=== PATIENT | female | born 1955 | race Caucasian/White ===

== ENCOUNTER → 2024-05-05 | Outpatient (CLI) | payer MEDICARE ==
[2024-05-05 17:19] LABS: African American GFR (CKD) >90 (>60 ml/min/1.73 sqM); Blood Urea Nitrogen 17 mg/dL (7-17); Non-African American GFR(CKD) 83 (>60 ml/min/1.73 sqM)
--- NOTE | 2024-05-05 19:31 | CT ---
"EXAMINATION TYPE: CT abdomen pelvis w con CT DLP: 1091.7 mGycm, Automated exposure control for dose reduction was used. DATE OF EXAM: 05/05/2024 6:50 PM COMPARISON: None CLINICAL INDICATION: Female, 69 years old with history of R11.2 NAUSEA VOMITING; abdominal pain, naus ea and vomiting x1.5 months TECHNIQUE: Axial CT abdomen pelvis w con;Sagittal and coronal reformats were created on a separate w orkstation. Contrast used:100 ml mL of Isovue 370 with IV Contrast, (none if empty) Oral contrast used: with Oral Contrast (none if empty) FINDINGS: LOWER CHEST: Unremarkable ABDOMEN LIVER: Unremarkable GALLBLADDER AND BILE DUCTS: Distended PANCREAS: Unremarkable. SPLEEN: Unremarkable. ADRENAL GLANDS: Unremarkable. KIDNEYS AND URETERS: No evidence of hydronephrosis or renal calculus. The ureters are unremarkable. PELVIS BLADDER: Unremarkable REPRODUCTIVE: Unremarkable. ABDOMEN & PELVIS STOMACH AND BOWEL: No evidence of bowel obstruction. Eccentric wall thickening of the sigmoid colon s eries 3 image 50 with wall thickening up to 9 mm overall area of abnormal wall extends approximately 9.8 cm in length. No mesenteric lymph nodes definitively visualized at this time. Scattered colonic diverticula present. PERITONEUM/RETROPERITONEUM: No evidence of pneumoperitoneum or free fluid. VASCULATURE: No evidence of aortic aneurysm. MUSCULOSKELETAL: No acute osseous abnormalities LYMPH NODES: No gross evidence for lymphadenopathy. SOFT TISSUE/ABDOMINAL WALL: Unremarkable IMPRESSION: 1. Descending colon eccentric wall thickening extending up to 9.8 cm concerning for malignancy until proven otherwise. Colonoscopy recommended. 2. No mesenteric lymph nodes identified at this time. No liver masses definitively visualized. A Yellow level critical message alert has been initiated for Rachel Andujar DO via the [facility] [facility] 0 | Critical Results System on 05/05/2024 7:29 PM. This message alert has been sent to Rachel Andujar DO via the preferences provided by the clinician for the receipt of Radiology Critical Findings. [facility] ID [id number]. [facility], , 05/05/2024 7:29 PM"
== END | disposition home or self-care (01) ==
LOC: RADCTMAIN 16:33
PROVIDERS: ATTEND Family Medicine
DX: R11.2 Nausea with vomiting, unspecified
CPT/HCPCS: 36415; 74177; 82565; 84520

== ENCOUNTER 2024-05-19 13:32 | Day surgery (SDC) | payer MEDICARE ==
[2024-05-14 11:59] VITALS: BMI 36.1
[~2024-05-19 13:32] MED LIST: LIDOCAINE 1% (10MG/ML) FOR IV START INTRADERMA PRN
[2024-05-19 15:16] VITALS: TEMP 98.2
[2024-05-19] MEDS: IV FLUID CONTINUATION 1,000 ML IV ONE (15:18)
[2024-05-19] MEDS: LACTATED RINGERS 1,000 ML IV SCH (15:24)
[2024-05-19] MEDS ORDERED: PROPOFOL 10 MG/ML 20 ML VIAL IV ONE (16:08)
--- NOTE | 2024-05-19 16:10 | P.GSHP ---
History of Present Illness H&P Date: 05/19/24 Chief Complaint: Screening colonoscopy This is a 69-year-old female who presents today for screening colonoscopy. Patient denies any significant GI complaints. Past Medical History Past Medical History: Osteoarthritis (OA) Additional Past Medical History / Comment(s): Patient states since the end of February 2024 has not been able to smoke cigarettes or drink coffee, is only able to eat about half of what she used to eat, has abdominal pain, especially when trying to eat, bloating, constipation and greasy smells(for example from sausage cooking)give me nausea. Varicose veins?? History of Any Multi-Drug Resistant Organisms: None Reported Additional Past Surgical History / Comment(s): D&C X4. Past Anesthesia/Blood Transfusion Reactions: Previous Problems w/ Anesthesia Additional Past Anesthesia/Blood Transfusion Reaction / Comment(s): Patient states she had 4 D&C's in 2262-9269 and her heart stopped all 4 times and eneded up in the Cardiac Unit. States has not had any anesthesia since then. Smoking Status: Former smoker - Past Family History Mother Family Medical History: No Reported History Medications and Allergies Home Medications Medication Instructions Recorded Confirmed Type No Known Home Medications 05/14/24 05/19/24 History Allergies Allergy/AdvReac Type Severity Reaction Status Date / Time No Known Allergies Allergy Verified 05/19/24 15:02 Surgical - Exam Vital Signs Temp Pulse Resp BP Pulse Ox 98.2 F 103 H 16 213/145 94 L 05/19/24 15:07 05/19/24 15:07 05/19/24 15:07 05/19/24 15:07 05/19/24 15:07 - General well developed, well nourished, no distress - Eyes PERRL - ENT normal pinna - Neck no masses - Respiratory normal expansion - Cardiovascular Rhythm: regular - Abdomen Abdomen: soft, non tender Assessment and Plan Assessment: Will perform screening colonoscopy.
--- NOTE | 2024-05-19 16:28 | P.OP ---
Date of Procedure: 05/19/24 Preoperative Diagnosis: Screening colonoscopy Postoperative Diagnosis: Colon mass at 50 cm Procedure(s) Performed: Colonoscopy Anesthesia: MAC Surgeon: Mo Main Pathology: other (Colon mass) Condition: stable Disposition: PACU Description of Procedure: The patient was placed on the endoscopy table position. She received IV sedation. Digital rectal exam was performed which revealed no abnormalities. The flexible colonoscope was then placed patient anus passed throughout the colon. At the 50 cm christine there was a apple core type lesion. This was biopsied with a cold forcep. The area was then tattooed with the ink spot.. The lumen of the colon was quite narrow. The scope was then withdrawn. The remainder of the descending and sigmoid colon appeared normal. The rectum is normal. Scope withdrawn for the patient.
[2024-05-19 17:06] VITALS: BP 126/79; PULSE 97; RESP 20
== END 2024-05-19 17:10 | disposition home or self-care (01) ==
LOC: ORWHC2ENDO 13:32
PROVIDERS: ATTEND Surgery
CPT/HCPCS: 45380; 45381; 88305; 88341; 88342

== ENCOUNTER 2024-06-02 07:50 | Inpatient (IN) | payer MEDICARE ==
[~2024-06-02 07:50] MED LIST changes: +ACETAMINOPHEN TAB 500 MG TAB PO PRN; -LIDOCAINE 1% (10MG/ML) FOR IV START INTRADERMA PRN
[2024-06-02] MEDS: LACTATED RINGERS 1,000 ML IV SCH (09:11)
[2024-06-02] MEDS: DEXAMETHASONE SOD PHOSPHATE 4 MG/ML 1 ML VIAL IV ONE (09:12)
[2024-06-02] MEDS: ONDANSETRON 4 MG/2 ML VIAL IVP ONE (09:12)
[2024-06-02] MEDS: HEPARIN SODIUM,PORCINE 5,000 UNIT/ML 1 ML VIAL SQ PRN (09:16)
[2024-06-02 09:17] LABS: Basophils # (A) 0.1 k/uL (0-0.2); Basophils % (A) 0 %; Eosinophils # (A) 0.2 k/uL (0-0.7); Eosinophils % (A) 1 %; HCT 37.6 % (34.0-46.0); Hypochromasia Slight; Lymphocytes % (A) 16 %; MCH 27.5 pg (25.0-35.0); MCHC 31.9 g/dL (31.0-37.0); MCV 86.4 fL (80.0-100.0); Mean Platelet Volume 7.2; Monocytes # (A) 0.6 k/uL (0-1.0); Monocytes % (A) 3 %; Neutrophils # (A) 14.6 k/uL (1.3-7.7); Neutrophils % (A) 78 %; Platelet Count 477 k/uL (150-450); RBC 4.35 m/uL (3.80-5.40); RDW 15.3 % (11.5-15.5); WBC 18.7 k/uL (3.8-10.6)
[2024-06-02] MEDS: IV FLUID CONTINUATION 1,000 ML IV ONE ×3 (09:17→13:35)
[2024-06-02 09:36] LABS: ALT 28 U/L (4-34); AST 42 U/L (14-36); African American GFR (CKD) >90 (>60 ml/min/1.73 sqM); Albumin 3.6 g/dL (3.5-5.0); Alkaline Phosphatase 122 U/L (38-126); Anion Gap 10 mmol/L; Blood Urea Nitrogen 15 mg/dL (7-17); Carbon Dioxide 28 mmol/L (22-30); Chloride 103 mmol/L (98-107); Glucose 103 mg/dL (74-99); Non-African American GFR(CKD) >90 (>60 ml/min/1.73 sqM); Potassium 3.8 mmol/L (3.5-5.1); Sodium 141 mmol/L (137-145); Total Bilirubin 0.7 mg/dL (0.2-1.3); Total Protein 6.7 g/dL (6.3-8.2)
[2024-06-02 09:44] LABS: INR 0.9 (<1.2); Partial Thromboplastin Time 28.7 sec (22.0-30.0); Prothrombin Time 10.5 sec (10.0-12.5)
[2024-06-02] MEDS ORDERED: PHENYLEPHRINE 10 MG/ML VIAL ONE (10:14)
[2024-06-02] MEDS ORDERED: LIDOCAINE 1% INJ 10MG/ML (20 ML MDV) ONE (10:14)
[2024-06-02] MEDS ORDERED: HYDROmorphone (PF) 1 MG/ML ONE (10:14)
[2024-06-02] MEDS ORDERED: ESMOLOL 100 MG/10 ML VIAL ONE (10:14)
[2024-06-02] MEDS ORDERED: fentaNYL (PF) 50 MCG/ML 2 ML AMP ONE (10:14)
[2024-06-02] MEDS ORDERED: KETAMINE HCL IN 0.9 % NACL 50 MG/5 ML SYRINGE ONE (10:14)
[2024-06-02] MEDS ORDERED: KETOROLAC 15 MG/ML 1 ML VIAL ONE (10:14)
[2024-06-02] MEDS ORDERED: SUCCINYLCHOLINE CHLORIDE 200 MG/10 ML VIAL IV ONE (10:14)
[2024-06-02] MEDS ORDERED: GLYCOPYRROLATE 0.2 MG/ML 2 ML VIAL ONE (10:14)
[2024-06-02] MEDS ORDERED: PROPOFOL 10 MG/ML 20 ML VIAL IV ONE (10:14)
[2024-06-02] MEDS ORDERED: ALBUMIN HUMAN 5% (12.5gm) 250 ML BOTTLE IVPB ONE (10:14)
[2024-06-02] MEDS ORDERED: NEOSTIGMINE 1 MG/ML 10 ML VIAL ONE (10:14)
[2024-06-02] MEDS ORDERED: MIDAZOLAM 2 MG/2 ML VIAL ONE (10:14)
[2024-06-02] MEDS ORDERED: ROCURONIUM 10 MG/ML (5 ML VIAL) IV ONE (10:14)
[2024-06-02] MEDS: metroNIDAZOLE-NS PMX 500 MG in SALINE 1 100ML.BAG IVPB PRN (10:35)
[2024-06-02] MEDS: HYDROmorphone 0.5 MG/0.5 ML SYRINGE IVP PRN (12:44)
[2024-06-02] MEDS: DEXTROSE 5%-0.45% NACL 1,000 ML IV SCH (15:40)
[2024-06-02 17:49] LABS: African American GFR (CKD) >90 (>60 ml/min/1.73 sqM); Anion Gap 4 mmol/L; Blood Urea Nitrogen 15 mg/dL (7-17); Calcium 8.3 mg/dL (8.4-10.2); Carbon Dioxide 27 mmol/L (22-30); Chloride 105 mmol/L (98-107); Glucose 143 mg/dL (74-99); Non-African American GFR(CKD) >90 (>60 ml/min/1.73 sqM); Potassium 4.3 mmol/L (3.5-5.1); Sodium 136 mmol/L (137-145)
[2024-06-02 17:57] LABS: Basophils % (A) 0 %; Eosinophils % (A) 0 %; Hypochromasia Slight; Lymphocytes # (A) 0.9 k/uL (1.0-4.8); Lymphocytes % (A) 4 %; MCH 27.4 pg (25.0-35.0); MCV 88.4 fL (80.0-100.0); Monocytes # (A) 0.9 k/uL (0-1.0); Monocytes % (A) 4 %; Neutrophils # (A) 21.3 k/uL (1.3-7.7); Neutrophils % (A) 91 %; Platelet Count 333 k/uL (150-450); RBC 3.05 m/uL (3.80-5.40); RDW 15.5 % (11.5-15.5); WBC 23.3 k/uL (3.8-10.6)
[2024-06-02 17:59] LABS: HGB 8.4 gm/dL (11.4-16.0)
[2024-06-02] MEDS: HYDROmorphone 2 MG/ML 1 ML SYRINGE IVP PRN (19:45)
[2024-06-02] MEDS: FAMOTIDINE 20 MG/2 ML VIAL IV SCH (19:45)
[2024-06-03] MEDS: ALVIMOPAN 12 MG CAPSULE PO SCH (07:57)
[2024-06-03 08:36] LABS: Basophils % (A) 0 %; Eosinophils % (A) 0 %; HCT 24.7 % (34.0-46.0); HGB 7.6 gm/dL (11.4-16.0); Hypochromasia Slight; Lymphocytes # (A) 2.5 k/uL (1.0-4.8); Lymphocytes % (A) 10 %; MCH 27.3 pg (25.0-35.0); MCHC 30.8 g/dL (31.0-37.0); MCV 88.6 fL (80.0-100.0); Mean Platelet Volume 8.2; Monocytes # (A) 0.7 k/uL (0-1.0); Monocytes % (A) 3 %; Neutrophils % (A) 86 %; Platelet Count 368 k/uL (150-450); RBC 2.79 m/uL (3.80-5.40); RDW 15.8 % (11.5-15.5); WBC 25.5 k/uL (3.8-10.6)
[2024-06-03 09:03] LABS: African American GFR (CKD) >90 (>60 ml/min/1.73 sqM); Anion Gap 4 mmol/L; Blood Urea Nitrogen 15 mg/dL (7-17); Calcium 8.3 mg/dL (8.4-10.2); Carbon Dioxide 28 mmol/L (22-30); Chloride 101 mmol/L (98-107); Glucose 132 mg/dL (74-99); Non-African American GFR(CKD) >90 (>60 ml/min/1.73 sqM); Sodium 133 mmol/L (137-145)
[2024-06-03] MEDS: ACETAMINOPHEN IV (For NPO) 1,000 MG in EMPTY BAG 1 BAG IVPB SCH (10:56)
--- NOTE | 2024-06-03 13:18 | P.PN ---
Subjective Progress Note Date: 06/03/24 SURGICAL PROGRESS NOTE CHIEF COMPLAINT: Colon mass HISTORY OF PRESENT ILLNESS: Patient is postop day #1 status post left colectomy and splenectomy. Patient did go for prolonged period of time without pain medication. She was trying not to take the IV pain medication. She did have some nausea earlier. She does report abdominal pain and did take finally a dose of the IV pain medication. She denies any vomiting. Afebrile. WBC did go up from 23-25 Hgb 8.4 down to 7.6 platelets 368. Heart rate 105 BP 113/72 PHYSICAL EXAM: VITAL SIGNS: Reviewed. GENERAL: Well-developed in no acute distress. HEENT: No sclera icterus. Extraocular movements grossly intact. Moist buccal mucosa. Head is atraumatic, normocephalic. ABDOMEN: Soft. Tenderness at incision site. Surgical incisional dressing i ntact and clean and dry. Abdominal binder in place. NEUROLOGIC: Alert and oriented. Cranial nerves II through XII grossly intact. ASSESSMENT: 1. Left colon mass invading into the retroperitoneum status post left colectomy PLAN: -Repeat CBC in a.m. -IV Tylenol added for pain control. Encouraged and educated patient to take the IV Dilaudid to help with pain management -Encourage patient to use incentive spirometer -Continue IV fluids -Consult PT OT -GI prophylaxis Pepcid and DVT prophylaxis SCDs Physician Staff Development Coordinator note has been reviewed by physician. Signing provider agrees with the documented findings, assessment, and plan of care. Objective - Vital Signs Vital signs: Vital Signs Temp 98.2 F 06/03/24 12:23 Pulse 105 H 06/03/24 12:23 Resp 16 06/03/24 12:23 BP 113/70 06/03/24 12:23 Pulse Ox 90 L 06/03/24 12:23 FiO2 Intake & Output 06/02/24 06/03/24 06/03/24 18:59 06:59 18:59 Intake Total 950 1860 520 Output Total 415 450 Balance 535 1410 520 Weight 83.8 kg Intake: IV 950 Intake, IV Titration 1500 Amount Dextrose 5%-0.45% NaCl 1, 1500 000 ml @ 125 mls/hr IV . Q8H [facility] Rx#:[id number] Oral 360 520 Output: Urine 165 450 Estimated Blood Loss 250 Other: Voiding Method Indwelling Catheter Indwelling Catheter - Labs CBC & Chem 7: 06/03/24 08:04 06/03/24 08:04 Labs: Abnormal Lab Results - Last 24 Hours (Table) 06/02/24 06/02/24 06/03/24 Range/Units 17:19 17:19 08:04 WBC 23.3 H 25.5 H (3.8-10.6) k/uL RBC 3.05 L 2.79 L (3.80-5.40) m/uL Hgb 8.4 L D 7.6 L (11.4-16.0) gm/dL Hct 27.0 L 24.7 L (34.0-46.0) % MCHC 30.8 L (31.0-37.0) g/dL RDW 15.8 H (11.5-15.5) % Neutrophils # 21.3 H 22.0 H (1.3-7.7) k/uL Lymphocytes # 0.9 L (1.0-4.8) k/uL Sodium 136 L (137-145) mmol/L Glucose 143 H (74-99) mg/dL Calcium 8.3 L (8.4-10.2) mg/dL 06/03/24 Range/Units 08:04 WBC (3.8-10.6) k/uL RBC (3.80-5.40) m/uL Hgb (11.4-16.0) gm/dL Hct (34.0-46.0) % MCHC (31.0-37.0) g/dL RDW (11.5-15.5) % Neutrophils # (1.3-7.7) k/uL Lymphocytes # (1.0-4.8) k/uL Sodium 133 L (137-145) mmol/L Glucose 132 H (74-99) mg/dL Calcium 8.3 L (8.4-10.2) mg/dL
[2024-06-03 20:24] LABS: Appearance,Urine Cloudy (Clear); Bacteria,Urine Rare /hpf; Bilirubin,Urine Negative (Negative); Blood,Urine Trace (Negative); Color,Urine Light Yellow; Glucose,Urine (UA) Negative (Negative); Ketones,Urine Negative (Negative); Leukocyte Esterase,Urine Negative (Negative); Mucus,Urine Rare /hpf; Nitrite,Urine Negative (Negative); PH, Urine 5.5 (5.0-8.0); Protein,Urine Negative (Negative); RBC,Urine 9 /hpf (0-5); Specific Gravity,Urine 1.026 (1.001-1.035); Urobilinogen,Urine <2.0 mg/dL (<2.0); WBC,Urine 1 /hpf (0-5)
--- NOTE | 2024-06-03 21:49 | P.CONS ---
History of Present Illness - Reason for Consult Consult date: 06/03/24 Medical management - Chief Complaint Status post colectomy - History of Present Illness Patient is a 69-year-old female with recently diagnosed colon mass was admitted to hospital for elective colectomy and splenectomy. Patient had CT of the abdomen pelvis on 05/05/2024 showed descending colon ecc entric wall thickening extending up to 9.8 cm concerning for malignancy until proven otherwise. Colonoscopy recommended. No mesenteric lymph nodes identified at this time. No liver masses definitely visualized. Patient had colonoscopy done on 05/19/2024 showed colon mass at 50 cm. Patient is status post surgery. He is complaining of pain and is fairly controlled with pain management. No complaints of chest pain or shortness of breath. No nausea or vomiting. Has not passed flatus. No fever no chills. Laboratory data showed WBC 25.5 hemoglobin 7.6 and platelets 368 Sodium 133 potassium 4.0 chloride 101 bicarb is 28 BUN 15 and creatinine 0.53 and blood sugar 132 Urinalysis is negative for infection. Review of Systems Constitutional: Patient denies any fever or chills . No generalized weakness or weight loss. Abdomen: Patient does complain of abdominal pain and mild nausea. No vomiting. No diarrhea. Cardiovascular: Patient denies any chest pain or short of breath no palpitations. Respiratory: patient denied any cough or sputum production. No shortness of breath Neurologic: Patient denied any numbness or tingling. no headache. Musculoskeletal: Patient denies any complaints of joint swelling or deformity. Skin: Negative Psychiatric: Negative Endocrine: No heat or cold intolerance. No recent weight gain. Genitourinary: No dysuria or hematuria. All other 14 point ROS negative except the above Past Medical History Past Medical History: Cancer, Osteoarthritis (OA) Additional Past Medical History / Comment(s): colon Ca-dx Apr 2024,Patient states since the end of February 2024 has not been able to smoke cigarettes or drink coffee, is only able to eat about half of what she used to eat, has abdominal pain, especially when trying to eat, bloating, constipation and greasy smells(for example from sausage cooking)give me nausea. Varicose veins History of Any Multi-Drug Resistant Organisms: None Reported Past Surgical History: Tubal Ligation Additional Past Surgical History / Comment(s): D&C X4,colonoscopy Past Anesthesia/Blood Transfusion Reactions: Previous Problems w/ Anesthesia Additional Past Anesthesia/Blood Transfusion Reaction / Comm: Patient states she had 4 D&C's in 2140-8036 and her heart stopped all 4 times and ended up in the Cardiac Unit. has not had any anesthesia since then. pt states "No complications with colonoscopy Apr 2024 but b/p was high prior to colonoscopy." Smoking Status: Former smoker - Past Family History Mother Family Medical History: No Reported History Medications and Allergies Home Medications Medication Instructions Recorded Confirmed Type Ibuprofen [Advil] 400 mg PO Q6HR PRN 05/30/24 06/02/24 History Laxative 1 dose PO DAILY PRN 05/30/24 06/02/24 History Acetaminophen Tab [Tylenol] 1,000 mg PO PRN 06/02/24 History Allergies Allergy/AdvReac Type Severity Reaction Status Date / Time No Known Allergies Allergy Verified 06/02/24 08:47 Physical Exam Vitals: Vital Signs Temp Pulse Pulse Resp BP Pulse Ox 06/03/24 07:10 98.3 F 72 16 112/60 91 L 06/03/24 02:00 98.2 F 93 12 110/64 90 L 06/02/24 20:00 92 93 06/02/24 19:49 97.5 F L 85 12 143/94 99 06/02/24 16:39 100 06/02/24 15:50 91 106/65 87 L 06/02/24 15:34 91 102/70 85 L 06/02/24 15:21 87 116/66 91 L 06/02/24 15:02 97.7 F 97 15 108/75 92 L 06/02/24 14:15 92 16 108/59 100 06/02/24 14:00 86 16 113/55 100 06/02/24 13:45 86 16 115/64 100 06/02/24 13:30 94 16 114/64 99 06/02/24 13:15 98 16 102/65 99 06/02/24 13:03 107 H 16 112/68 100 06/02/24 12:45 104 H 18 107/65 100 06/02/24 12:30 113 H 18 117/78 100 06/02/24 12:19 97.2 F L 104 H 18 129/67 100 Intake and Output 11/04/24 11/05/24 11/05/24 22:59 06:59 14:59 Intake Total 1860 520 Output Total 75 450 Balance -75 1410 520 Intake: Intake, IV Titration 1500 Amount Dextrose 5%-0.45% NaCl 1, 1500 000 ml @ 125 mls/hr IV . Q8H [facility] Rx#:[id number] Oral 360 520 Output: Urine 75 450 Other: Voiding Method Indwelling Catheter PHYSICAL EXAMINATION: Patient is lying in the bed comfortably, no acute distress, awake alert and oriented.. HEENT: Normocephalic. Neck is supple. Pupils reactive. Nostrils clear. Oral cavity is moist. Neck reveals no JVD, carotid bruits, or thyromegaly. CHEST EXAMINATION: Trachea is central. Symmetrical expansion. Bibasilar diminished sounds otherwise lung [place] clear to auscultation and percussion. CARDIAC: Normal S1, S2 with no gallops. No murmurs ABDOMEN: Soft. Bowel sounds diminished. Surgical site bandaged.. No organomegaly. No abdominal bruits. Extremities: reveal no edema. No clubbing or cyanosis Neurologically awake, alert, oriented x3 with well-coordinated movements. No focal deficits noted Skin: No rash or skin lesions. Psychiatric: Coperative. Nonsuicidal Musculoskeletal: No joint swelling or deformity. Normal range of motion. Results CBC & Chem 7: 06/03/24 08:04 06/03/24 08:04 Labs: Abnormal Lab Results - Last 24 Hours (Table) 06/02/24 06/02/24 06/03/24 Range/Units 17:19 17:19 08:04 WBC 23.3 H 25.5 H (3.8-10.6) k/uL RBC 3.05 L 2.79 L (3.80-5.40) m/uL Hgb 8.4 L D 7.6 L (11.4-16.0) gm/dL Hct 27.0 L 24.7 L (34.0-46.0) % MCHC 30.8 L (31.0-37.0) g/dL RDW 15.8 H (11.5-15.5) % Neutrophils # 21.3 H 22.0 H (1.3-7.7) k/uL Lymphocytes # 0.9 L (1.0-4.8) k/uL Sodium 136 L (137-145) mmol/L Glucose 143 H (74-99) mg/dL Calcium 8.3 L (8.4-10.2) mg/dL 06/03/24 Range/Units 08:04 WBC (3.8-10.6) k/uL RBC (3.80-5.40) m/uL Hgb (11.4-16.0) gm/dL Hct (34.0-46.0) % MCHC (31.0-37.0) g/dL RDW (11.5-15.5) % Neutrophils # (1.3-7.7) k/uL Lymphocytes # (1.0-4.8) k/uL Sodium 133 L (137-145) mmol/L Glucose 132 H (74-99) mg/dL Calcium 8.3 L (8.4-10.2) mg/dL Assessment and Plan Assessment: Status post left colectomy and splenectomy. Postoperative day 1 Recently diagnosed colon mass Acute blood loss anemia expected from surgery. Hemoglobin 7.6 today. Leukocytosis likely reactive. GI and DVT prophylaxis as per primary team Plan: Patient will be continued on pain management with IV Tylenol and IV Dilaudid and encourage incentive spirometry. Monitor H&H and CBC closely. Urinalysis is negative for infection. Continue with IV hydration. PT OT was consulted. Further recommendations based on the clinical course. Thank you kindly for your consult. Time with Patient: Greater than 30
[2024-06-04] MEDS: METOCLOPRAMIDE 5 MG/ML 2 ML VIAL IVP PRN (04:16)
[2024-06-04 06:30] LABS: Basophils % (A) 0 %; Eosinophils # (A) 0.1 k/uL (0-0.7); Eosinophils % (A) 0 %; HCT 22.3 % (34.0-46.0); Hypochromasia Marked; Lymphocytes # (A) 1.6 k/uL (1.0-4.8); Lymphocytes % (A) 6 %; MCH 27.7 pg (25.0-35.0); MCHC 30.9 g/dL (31.0-37.0); MCV 89.8 fL (80.0-100.0); Monocytes # (A) 0.7 k/uL (0-1.0); Monocytes % (A) 3 %; Neutrophils # (A) 22.9 k/uL (1.3-7.7); Neutrophils % (A) 91 %; Platelet Count 417 k/uL (150-450); RBC 2.49 m/uL (3.80-5.40); RDW 15.3 % (11.5-15.5); WBC 25.3 k/uL (3.8-10.6)
[2024-06-04 06:34] LABS: HGB 6.9 gm/dL (11.4-16.0)
[2024-06-04] MEDS: ONDANSETRON 4 MG/2 ML VIAL IVP PRN ×2 (08:22→15:22)
[2024-06-04 08:47] LABS: Calcium 8.2 mg/dL (8.7-10.3); Carbon Dioxide 24.5 mmol/L (21.6-31.8); Chloride 102 mmol/L (96-109); Glucose 141 mg/dL (70-110); Potassium 4.1 mmol/L (3.5-5.5); Sodium 136 mmol/L (135-145)
[2024-06-04] MEDS: METOCLOPRAMIDE 5 MG/ML 2 ML VIAL IVP SCH ×2 (14:04→22:27)
[2024-06-04] MEDS: ACETAMINOPHEN IV (For NPO) 1,000 MG in EMPTY BAG 1 BAG IVPB SCH ×2 (14:04→22:11)
--- NOTE | 2024-06-04 14:34 | P.PN ---
Subjective Progress Note Date: 06/04/24 SURGICAL PROGRESS NOTE CHIEF COMPLAINT: Colon mass HISTORY OF PRESENT ILLNESS: Patient is postop day #2 status post left colectomy and splenectomy. Patient is complaining of nausea and vomiting today. She does report abdominal pain. The emesis is bile in color. She denies any bowel activity. Her hemoglobin has dropped from 7.6-6.9. She is receiving 1 unit of blood. WBC is the same at 25.3 platelets 417. Patient is afebrile. She is tachycardic. BP stable. Patient is urine output is adequate Dr. Gould is covering for Dr. Main PHYSICAL EXAM: VITAL SIGNS: Reviewed. GENERAL: Well-developed in no acute distress. ABDOMEN: Soft. Mildly distended. Surgical dressing with some shadowing noted. Tender at incision site. Abdominal binder in place. NEUROLOGIC: Alert and oriented. Cranial nerves II through XII grossly intact. ASSESSMENT: 1. Left colon mass invading into the retroperitoneum status post left colectomy 2. Anemia possible acute blood loss anemia from surgery 3. Leukocytosis PLAN: -Agree with blood transfusion -Repeat CBC after blood transfusion -Zosyn added due to leukocytosis -Repeat CBC in a.m. -IV Tylenol resumed for pain management -Downgrade diet to n.p.o. -Change Reglan to scheduled. Increase Zofran to every 6 hours -Encourage patient to ambulate -Continue IV fluids -Encourage patient to use incentive spirometer -Pathology results pending -GI prophylaxis Pepcid and DVT prophylaxis SCDs Physician Top Precipitator Operator Helper note has been reviewed by physician. Signing provider agrees with the documented findings, assessment, and plan of care. I have personally seen and examined the patient, reviewed the HEAVY MACHINERY OPERATOR /PAs history, exam and MDM and agree with the assessment and plan as written. Based on total visit time, I have performed more than 50% of the visit. As above: Patient complaining of nausea today. Mild discomfort. Mild tachycardia. Hemoglobin was low this morning and patient was given 1 unit of blood. Hemoglobin increased to 8.4 after transfusion. Gradually increase activity. Keep n.p.o. for now. Will follow. Objective - Vital Signs Vital signs: Vital Signs Temp 98.5 F 06/04/24 14:02 Pulse 115 H 06/04/24 14:02 Resp 16 06/04/24 14:02 BP 135/80 06/04/24 14:02 Pulse Ox 98 06/04/24 14:02 FiO2 Intake & Output 06/03/24 06/04/24 06/04/24 18:59 06:59 18:59 Intake Total 2215 310 Output Total 1100 1450 400 Balance 1115 -1450 -90 Intake: Oral 2215 Blood Product 310 Rc As-1 Unit 310 [id number] Output: Urine 1100 1450 400 Uretheral (Mora) 400 Other: Voiding Method Indwelling Catheter Indwelling Catheter Indwelling Catheter - Labs CBC & Chem 7: 06/04/24 16:06 06/04/24 05:23 Labs: Abnormal Lab Results - Last 24 Hours (Table) 06/02/24 06/03/24 06/04/24 Range/Units 09:00 19:11 05:23 WBC 25.3 H (3.8-10.6) k/uL RBC 2.49 L (3.80-5.40) m/uL Hgb 6.9 L* (11.4-16.0) gm/dL Hct 22.3 L (34.0-46.0) % MCHC 30.9 L (31.0-37.0) g/dL Neutrophils # 22.9 H (1.3-7.7) k/uL BUN (9.0-27.0) mg/dL Creatinine (0.6-1.5) mg/dL Glucose (70-110) mg/dL Calcium (8.7-10.3) mg/dL Urine Appearance Cloudy H (Clear) Urine Blood Trace H (Negative) Urine RBC 9 H (0-5) /hpf Urine Bacteria Rare H (None) /hpf Urine Mucus Rare H (None) /hpf Crossmatch See Detail 06/04/24 Range/Units 05:23 WBC (3.8-10.6) k/uL RBC (3.80-5.40) m/uL Hgb (11.4-16.0) gm/dL Hct (34.0-46.0) % MCHC (31.0-37.0) g/dL Neutrophils # (1.3-7.7) k/uL BUN 8.0 L (9.0-27.0) mg/dL Creatinine 0.5 L (0.6-1.5) mg/dL Glucose 141 H (70-110) mg/dL Calcium 8.2 L (8.7-10.3) mg/dL Urine Appearance (Clear) Urine Blood (Negative) Urine RBC (0-5) /hpf Urine Bacteria (None) /hpf Urine Mucus (None) /hpf Crossmatch
[2024-06-04] MEDS: PIPERACILLIN-TAZOBACTAM 3.375 GM in SODIUM CHLORIDE 0.9% 100 ML IVPB SCH (16:23)
[2024-06-04 16:25] LABS: Basophils % (A) 0 %; Eosinophils # (A) 0.1 k/uL (0-0.7); Eosinophils % (A) 0 %; HCT 26.6 % (34.0-46.0); Hypochromasia Slight; Lymphocytes # (A) 1.1 k/uL (1.0-4.8); Lymphocytes % (A) 4 %; MCH 28.1 pg (25.0-35.0); MCHC 31.7 g/dL (31.0-37.0); MCV 88.6 fL (80.0-100.0); Mean Platelet Volume 7.5; Monocytes # (A) 0.4 k/uL (0-1.0); Monocytes % (A) 2 %; Neutrophils # (A) 24.8 k/uL (1.3-7.7); Neutrophils % (A) 94 %; Platelet Count 420 k/uL (150-450); WBC 26.5 k/uL (3.8-10.6)
[2024-06-04 16:37] LABS: HGB 8.4 gm/dL (11.4-16.0)
--- NOTE | 2024-06-04 22:58 | XR ---
EXAMINATION TYPE: XR chest 1V DATE OF EXAM: 06/04/2024 CLINICAL HISTORY: NGT placement TECHNIQUE: Single frontal view of the chest is obtained. COMPARISON: None FINDINGS: There is nasogastric tube coiled within stomach extending towards the antrum. There are low lung volumes with patchy left basilar opacity. Right lung is clear. Cardiac silhouette size appear s within normal limits. The osseous structures are intact. IMPRESSION: 1. The nasogastric tube is satisfactory in position. 2. Low lung volumes with left basilar acute infiltrate and/or atelectasis [facility], , 06/04/2024 10:56 PM
[2024-06-05] MEDS: BENZOCAINE/MENTHOL LOZENG 1 EACH LOZENGE MUCOUS MEM PRN (01:12)
[2024-06-05 05:07] LABS: Basophils % (A) 0 %; Eosinophils # (A) 0.1 k/uL (0-0.7); Eosinophils % (A) 0 %; HCT 25.1 % (34.0-46.0); HGB 8.1 gm/dL (11.4-16.0); Hypochromasia Slight; Lymphocytes # (A) 1.9 k/uL (1.0-4.8); Lymphocytes % (A) 8 %; MCH 28.6 pg (25.0-35.0); MCHC 32.1 g/dL (31.0-37.0); MCV 88.9 fL (80.0-100.0); Mean Platelet Volume 7.7; Monocytes # (A) 0.6 k/uL (0-1.0); Monocytes % (A) 2 %; Neutrophils # (A) 21.4 k/uL (1.3-7.7); Neutrophils % (A) 89 %; Platelet Count 432 k/uL (150-450); RBC 2.82 m/uL (3.80-5.40); RDW 15.2 % (11.5-15.5)
[2024-06-05 05:17] LABS: African American GFR (CKD) >90 (>60 ml/min/1.73 sqM); Anion Gap 3 mmol/L; Blood Urea Nitrogen 6 mg/dL (7-17); Calcium 8.2 mg/dL (8.4-10.2); Carbon Dioxide 31 mmol/L (22-30); Chloride 102 mmol/L (98-107); Glucose 115 mg/dL (74-99); Non-African American GFR(CKD) >90 (>60 ml/min/1.73 sqM); Potassium 3.6 mmol/L (3.5-5.1); Sodium 136 mmol/L (137-145)
--- NOTE | 2024-06-05 06:27 | P.PN ---
Subjective Progress Note Date: 06/04/24 Reason for Consult Consult date: 06/03/24 Medical management - Chief Complaint Status post colectomy - History of Present Illness Patient is a 69-year-old female with recently diagnosed colon mass was admitted to hospital for elective colectomy and splenectomy. Patient had CT of the abdomen pelvis on 05/05/2024 showed descending colon eccentric wall thickening extending up to 9.8 cm concerning for malignancy until proven otherwise. Colonoscopy recommended. No mesenteric lymph nodes identified at this time. No liver masses definitely visualized. Patient had colonoscopy done on 05/19/2024 showed colon mass at 50 cm. Patient is status post surgery. He is complaining of pain and is fairly controlled with pain management. No complaints of chest pain or shortness of breath. No nausea or vomiting. Has not passed flatus. No fever no chills. Laboratory data showed WBC 25.5 hemoglobin 7.6 and platelets 368 Sodium 133 potassium 4.0 chloride 101 bicarb is 28 BUN 15 and creatinine 0.53 and blood sugar 132 Urinalysis is negative for infection. 06/04/2024 Patient is seen in follow-up today status post colectomy with general surgery. Patient is reporting continued nausea with some vomiting and some shortness of breath. Patient is continued on nasal cannula and reports does not wear oxygen outpatient. Will obtain a chest x-ray. White count is elevated and patient denies any bowel activity as of yet. Review of systems: Constitutional: No reports of fatigue, fever, or chills Cardiovascular: No reports of chest pain or palpitations Respiratory: No reports of shortness of breath or cough GI: reports of nausea, with an episode of vomiting, reports no gas and no bowel movement as of yet : No reports of dysuria or retention Neurovascular: reports of generalized weakness All medications have been reviewed PHYSICAL EXAMINATION: Patient is lying in the bed , no acute distress, awake alert and oriented.. Appears elderly, obese, well-developed HEENT: Normocephalic. Neck is supple. Pupils reactive. Nostrils clear. Oral cavity is moist. Neck reveals no JVD, carotid bruits, or thyromegaly. CHEST EXAMINATION: Trachea is central. Symmetrical expansion. Bibasilar diminished sounds otherwise lung mcclendon clear to auscultation and percussion. CARDIAC: Normal S1, S2 with no gallops. No murmurs ABDOMEN: Soft. Bowel sounds diminished. Surgical site bandaged.. Tender on palpation no organomegaly. No abdominal bruits. Extremities: reveal no edema. No clubbing or cyanosis Neurologically awake, alert, oriented x3 with well-coordinated movements. No focal deficits noted Skin: No rash or skin lesions. Psychiatric: Cooperative. Non-suicidal Musculoskeletal: No joint swelling or deformity. Normal range of motion. Assessment: Status post left colectomy and splenectomy. Postoperative day 2 Recently diagnosed colon mass Acute blood loss anemia expected from surgery. Hemoglobin less than 7 and awaiting receive a unit of PRBC Leukocytosis likely reactive. Obesity with a BMI 34.9 GI and DVT prophylaxis as per primary team Full code Plan: Patient will be continued on pain management with IV Tylenol and IV Dilaudid and encourage incentive spirometry. Monitor H&H and CBC closely. Hemoglobin is less than 7 and awaiting to receive a unit of PRBC today. Follow-up on repeat labs urinalysis is negative for infection. Continue with IV hydration. PT OT was consulted and pending. Patient was reporting some shortness of breath and still on 2 to 3 L nasal cannula and does not normally wear this. Will obtain a chest x-ray Encouraged increase activity as tolerated We will continue to follow with general surgery during hospitalization. Thank you kindly for this consultation. The impression and plan of care has been dictated by Shannon Villalobos, Nurse Practitioner as directed. Dr. Brie MD I have performed a history and examination and MDM of this patient, discussed the same with the dictator, and agree with the dictator's assessment and plan a s written ,documented as a scribe. Based on total visit time, I have performed more than 50% of the visit. Objective - Vital Signs Vital signs: Vital Signs Temp 98.1 F 06/04/24 07:25 Pulse 99 06/04/24 07:25 Resp 16 06/04/24 07:25 BP 119/64 06/04/24 07:25 Pulse Ox 98 06/04/24 07:25 FiO2 Intake & Output 06/03/24 06/04/24 06/04/24 18:59 06:59 18:59 Intake Total 2215 Output Total 1100 1450 400 Balance 1115 -1450 -400 Intake: Oral 2215 Output: Urine 1100 1450 400 Uretheral (Mora) 400 Other: Voiding Method Indwelling Catheter Indwelling Catheter - Labs CBC & Chem 7: 11/07/24 04:17 06/05/24 04:17 Labs: Abnormal Lab Results - Last 24 Hours (Table) 06/02/24 06/03/24 06/04/24 Range/Units 09:00 19:11 05:23 WBC 25.3 H (3.8-10.6) k/uL RBC 2.49 L (3.80-5.40) m/uL Hgb 6.9 L* (11.4-16.0) gm/dL Hct 22.3 L (34.0-46.0) % MCHC 30.9 L (31.0-37.0) g/dL Neutrophils # 22.9 H (1.3-7.7) k/uL BUN (9.0-27.0) mg/dL Creatinine (0.6-1.5) mg/dL Glucose (70-110) mg/dL Calcium (8.7-10.3) mg/dL Urine Appearance Cloudy H (Clear) Urine Blood Trace H (Negative) Urine RBC 9 H (0-5) /hpf Urine Bacteria Rare H (None) /hpf Urine Mucus Rare H (None) /hpf Crossmatch See Detail 06/04/24 Range/Units 05:23 WBC (3.8-10.6) k/uL RBC (3.80-5.40) m/uL Hgb (11.4-16.0) gm/dL Hct (34.0-46.0) % MCHC (31.0-37.0) g/dL Neutrophils # (1.3-7.7) k/uL BUN 8.0 L (9.0-27.0) mg/dL Creatinine 0.5 L (0.6-1.5) mg/dL Glucose 141 H (70-110) mg/dL Calcium 8.2 L (8.7-10.3) mg/dL Urine Appearance (Clear) Urine Blood (Negative) Urine RBC (0-5) /hpf Urine Bacteria (None) /hpf Urine Mucus (None) /hpf Crossmatch
--- NOTE | 2024-06-05 14:18 | P.PN ---
Subjective Progress Note Date: 06/05/24 SURGICAL PROGRESS NOTE CHIEF COMPLAINT: Colon mass HISTORY OF PRESENT ILLNESS: Patient is postop day #3 status post left colectomy and splenectomy. Patient had NG tube placed last night for nausea and vomiting. Patient reports relief after the NG tube was placed with nausea vomiting and abdominal pain. NG tube with 700 mL bilious output. Patient did receive a unit of blood yesterday hemoglobin did go up from 6.9-8.4 and then today it is 8.1. Afebrile. Tachycardia improved after blood transfusion. White count elevated due to splenectomy. Dr. Gould is covering for Dr. Main PHYSICAL EXAM: VITAL SIGNS: Reviewed. GENERAL: Well-developed in no acute distress. ABDOMEN: Soft. Mildly distended. Mild tenderness at incision site. Abdominal binder in place. NEUROLOGIC: Alert and oriented. Cranial nerves II through XII grossly intact. ASSESSMENT: 1. Left colon mass invading into the retroperitoneum status post left colectomy 2. Anemia possible acute blood loss anemia from surgery 3. Leukocytosis reactive from splenectomy 4. Possible postoperative ileus can be an expected finding PLAN: -Continue NG tube for decompression -Keep patient n.p.o. -No need for antibiotics. Leukocytosis is reactive from splenectomy. Antibiotics discontinued. -Continue pain management -Continue Reglan -Encourage patient to ambulate -Continue IV fluids -Encourage patient to use incentive spirometer -Pathology results pending -Encourage patient to use incentive spirometer -GI prophylaxis Pepcid and DVT prophylaxis SCDs Physician Control Chemist note has been reviewed by physician. Signing provider agrees with the documented findings, assessment, and plan of care. I have personally seen and examined the patient, reviewed the [employer] /PAs history, exam and MDM and agree with the assessment and plan as written. Based on total visit time, I have performed more than 50% of the visit. As above: Patient says she feels much better after gastric tube was placed. Less distended on exam. Tachycardia improved as well. Agree that antibiotics not needed at this time given the elevated white blood cell count after the splenectomy. Continue increasing activity as tolerated. Objective - Vital Signs Vital signs: Vital Signs Temp 97.9 F 06/05/24 14:00 Pulse 93 06/05/24 14:00 Resp 18 06/05/24 14:00 BP 122/79 06/05/24 14:00 Pulse Ox 100 06/05/24 14:00 FiO2 Intake & Output 06/04/24 06/05/24 06/05/24 18:59 06:59 18:59 Intake Total 550 Output Total 1400 1300 Balance -850 -1300 Intake: Oral 240 Blood Product 310 Rc As-1 Unit 310 [id number] Output: Gastric Drainage 700 Urine 1400 600 Uretheral (Mora) 400 Other: Voiding Method Indwelling Catheter - Labs CBC & Chem 7: 06/05/24 04:17 06/05/24 04:17 Labs: Abnormal Lab Results - Last 24 Hours (Table) 06/04/24 06/05/24 06/05/24 Range/Units 16:06 04:17 04:17 WBC 26.5 H 24.0 H (3.8-10.6) k/uL RBC 3.00 L 2.82 L (3.80-5.40) m/uL Hgb 8.4 L D 8.1 L (11.4-16.0) gm/dL Hct 26.6 L 25.1 L (34.0-46.0) % Neutrophils # 24.8 H 21.4 H (1.3-7.7) k/uL Sodium 136 L (137-145) mmol/L Carbon Dioxide 31 H (22-30) mmol/L BUN 6 L (7-17) mg/dL Creatinine 0.50 L (0.52-1.04) mg/dL Glucose 115 H (74-99) mg/dL Calcium 8.2 L (8.4-10.2) mg/dL
--- NOTE | 2024-06-06 06:17 | P.PN ---
Subjective Progress Note Date: 06/05/24 Reason for Consult Consult date: 06/03/24 Medical management - Chief Complaint Status post colectomy - History of Present Illness Patient is a 69-year-old female with recently diagnosed colon mass was admitted to hospital for elective colectomy and splenectomy. Patient had CT of the abdomen pelvis on 05/05/2024 showed descending colon eccentric wall thickening extending up to 9.8 cm concerning for malignancy until proven otherwise. Colonoscopy recommended. No mesenteric lymph nodes identified at this time. No liver masses definitely visualized. Patient had colonoscopy done on 05/19/2024 showed colon mass at 50 cm. Patient is status post surgery. He is complaining of pain and is fairly controlled with pain management. No complaints of chest pain or shortness of breath. No nausea or vomiting. Has not passed flatus. No fever no chills. Laboratory data showed WBC 25.5 hemoglobin 7.6 and platelets 368 Sodium 133 potassium 4.0 chloride 101 bicarb is 28 BUN 15 and creatinine 0.53 and blood sugar 132 Urinalysis is negative for infection. 06/04/2024 Patient is seen in follow-up today status post colectomy with general surgery. Patient is reporting continued nausea with some vomiting and some shortness of breath. Patient is continued on nasal cannula and reports does not wear oxygen outpatient. Will obtain a chest x-ray. White count is elevated and patient denies any bowel activity as of yet. 06/05/2024 Patient is seen in follow-up today and nausea has improved after NG tube placement. Continue on n.p.o. for now per surgery. Encouraged increase activity as tolerated with more frequent walking and getting up off the bed. Patient continues to have significant abdominal pain in the abdomen when moving although patient was able to get up to the chair. Recommend discontinuing Mora catheter and monitoring for voiding issues. No bowel activity as of yet and bowel sounds are currently absent. Possible postop ileus. Patient denies chest pain or palpitations. Patient continues on oxygen via nasal cannula and does not normally wear recommend wean FiO2 as tolerated. Review of systems: Constitutional: No reports of fatigue, fever, or chills Cardiovascular: No reports of chest pain or palpitations Respiratory: reports of intermittent shortness of breath with exertion GI: reports of nausea, with an episode of vomiting, reports no gas and no bowel movement as of yet, nausea and vomiting has improved post NG tube placement : No reports of dysuria or retention, will remove Mora catheter and monitor trial void Neurovascular: reports of generalized weakness and pain with movement in the abdomen All medications have been reviewed PHYSICAL EXAMINATION: Patient is lying in the bed , no acute distress, awake alert and oriented.. Appears elderly, obese, well-developed HEENT: Normocephalic. Neck is supple. Pupils reactive. Nostrils clear. Oral cavity is moist. Neck reveals no JVD, carotid bruits, or thyromegaly. CHEST EXAMINATION: Trachea is central. Symmetrical expansion. Bibasilar diminished sounds otherwise lung mcclendon clear to auscultation and percussion. CARDIAC: Normal S1, S2 with no gallops. No murmurs ABDOMEN: Soft. Bowel sounds diminished. Surgical site bandaged.. Tender on palpation no organomegaly. No abdominal bruits. Extremities: reveal no edema. No clubbing or cyanosis Neurologically awake, alert, oriented x3 with well-coordinated movements. No focal deficits noted Skin: No rash or skin lesions. Psychiatric: Cooperative. Non-suicidal Musculoskeletal: No joint swelling or deformity. Normal range of motion. Assessment: Status post left colectomy and splenectomy. Recently diagnosed colon mass Acute blood loss anemia expected from surgery. Hemoglobin less than 7 and awaiting receive a unit of PRBC Leukocytosis likely reactive. Status post splenectomy Acute hypoxic respiratory failure secondary to atelectasis. As well as possible volume overload, wean FiO2 as tolerated Obesity with a BMI 34.9 GI and DVT prophylaxis as per primary team Full code Plan: Patient will be continued on pain management with IV Tylenol and IV Dilaudid and encourage incentive spirometry. Monitor H&H and CBC closely. Hemoglobin is improved over 8 status post a unit of PRBC. Follow-up on repeat labs. No active bleeding noted urinalysis is negative for infection. Continue with IV hydration while patient n.p.o. at a decreased rate. PT OT was consulted and pending. Patient was reporting some shortness of breath and still on 2 to 3 L nasal cannula and does not normally wear this. Encouraged incentive spirometer use at least 10 times every hour while awake and getting up more frequently and walking and sitting up in the chair Encouraged increase activity as tolerated We will continue to follow with general surgery during hospitalization. Thank you kindly for this consultation. The impression and plan of care has been dictated by Shannon Villalobos, Nurse Practitioner as directed. Dr. Brie MD I have performed a history and examination and MDM of this patient, discussed the same with the dictator, and agree with the dictator's assessment and plan as written ,documented as a scribe. Based on total visit time, I have performed more than 50% of the visit. Objective - Vital Signs Vital signs: Vital Signs Temp 97.8 F 06/05/24 07:53 Pulse 84 06/05/24 07:53 Resp 17 06/05/24 07:53 BP 126/73 06/05/24 07:53 Pulse Ox 98 06/05/24 07:53 FiO2 Intake & Output 06/04/24 06/05/24 06/05/24 18:59 06:59 18:59 Intake Total 550 Output Total 1400 1300 Balance -850 -1300 Intake: Oral 240 Blood Product 310 Rc As-1 Unit 310 [id number] Output: Gastric Drainage 700 Urine 1400 600 Uretheral (Mora) 400 Other: Voiding Method Indwelling Catheter - Labs CBC & Chem 7: 06/05/24 04:17 06/05/24 04:17 Labs: Abnormal Lab Results - Last 24 Hours (Table) 06/02/24 06/04/24 06/05/24 Range/Units 09:00 16:06 04:17 WBC 26.5 H 24.0 H (3.8-10.6) k/uL RBC 3.00 L 2.82 L (3.80-5.40) m/uL Hgb 8.4 L D 8.1 L (11.4-16.0) gm/dL Hct 26.6 L 25.1 L (34.0-46.0) % Neutrophils # 24.8 H 21.4 H (1.3-7.7) k/uL Sodium (137-145) mmol/L Carbon Dioxide (22-30) mmol/L BUN (7-17) mg/dL Creatinine (0.52-1.04) mg/dL Glucose (74-99) mg/dL Calcium (8.4-10.2) mg/dL Crossmatch See Detail 06/05/24 Range/Units 04:17 WBC (3.8-10.6) k/uL RBC (3.80-5.40) m/uL Hgb (11.4-16.0) gm/dL Hct (34.0-46.0) % Neutrophils # (1.3-7.7) k/uL Sodium 136 L (137-145) mmol/L Carbon Dioxide 31 H (22-30) mmol/L BUN 6 L (7-17) mg/dL Creatinine 0.50 L (0.52-1.04) mg/dL Glucose 115 H (74-99) mg/dL Calcium 8.2 L (8.4-10.2) mg/dL Crossmatch
[2024-06-06 09:10] LABS: Basophils % (A) 0 %; Eosinophils # (A) 0.2 k/uL (0-0.7); Eosinophils % (A) 1 %; HCT 29.6 % (34.0-46.0); HGB 9.3 gm/dL (11.4-16.0); Hypochromasia Slight; Lymphocytes # (A) 2.8 k/uL (1.0-4.8); Lymphocytes % (A) 15 %; MCHC 31.4 g/dL (31.0-37.0); MCV 89.4 fL (80.0-100.0); Monocytes # (A) 0.9 k/uL (0-1.0); Monocytes % (A) 5 %; Neutrophils % (A) 78 %; Platelet Count 596 k/uL (150-450); RBC 3.31 m/uL (3.80-5.40); RDW 15.2 % (11.5-15.5); WBC 19.2 k/uL (3.8-10.6)
--- NOTE | 2024-06-06 13:18 | P.PN ---
Subjective Progress Note Date: 06/06/24 SURGICAL PROGRESS NOTE CHIEF COMPLAINT: Colon mass HISTORY OF PRESENT ILLNESS: Patient is postop day #4 status post left colectomy and splenectomy. Patient continues to have NG tube in place. 850 mL output through the night and 300 bilious output this morning. Patient sitting at bedside chair. Pain is controlled. Denies any nausea. Denies any bowel activity. Afebrile. WBC is down from 24-19 hemoglobin 8.1 up to 9.[address] Gould is covering for Dr. Main PHYSICAL EXAM: VITAL SIGNS: Reviewed. GENERAL: Well-developed in no acute distress. ABDOMEN: Soft. Mildly distended. Mild tenderness at incision site. Abdominal binder in place. NEUROLOGIC: Alert and oriented. Cranial nerves II through XII grossly intact. ASSESSMENT: 1. Left colon mass invading into the retroperitoneum status post left colectomy 2. Anemia possible acute blood loss anemia from surgery 3. Leukocytosis reactive from splenectomy 4. Possible postoperative ileus can be an expected finding PLAN: -Continue NG tube for decompression -Keep patient n.p.o. -No need for antibiotics. Leukocytosis is reactive from splenectomy. -Continue pain management -Continue Reglan -Encourage patient to ambulate -Continue IV fluids -Encourage patient to use incentive spirometer -Pathology results pending -Nursing staff to change surgical dressing to Optifoam silver -GI prophylaxis Pepcid and DVT prophylaxis SCDs Physician Video Control Engineer note has been reviewed by physician. Signing provider agrees with the documented findings, assessment, and plan of care. I have personally seen and examined the patient, reviewed the [employer] /PAs history, exam and MDM and agree with the assessment and plan as written. Based on total visit time, I have performed more than 50% of the visit. As above: Patient got out of bed and walked in the hallways today. No bowel function. Labs noted. Hemoglobin improved. Continue ambulation. Keep nasogastric tube to suction for now. Objective - Vital Signs Vital signs: Vital Signs Temp 98.6 F 06/06/24 07:59 Pulse 99 06/06/24 07:59 Resp 17 06/06/24 07:59 BP 127/72 06/06/24 07:59 Pulse Ox 97 06/06/24 07:59 FiO2 Intake & Output 06/05/24 06/06/24 06/06/24 18:59 06:59 18:59 Output Total 1775 300 Balance -1775 -300 Output: Gastric Drainage 850 300 Urine 925 Other: Voiding Method Indwelling Catheter Bedpan Bedside Commode Diaper # Voids 2 - Labs CBC & Chem 7: 06/06/24 08:10 06/05/24 04:17 Labs: Abnormal Lab Results - Last 24 Hours (Table) 06/06/24 Range/Units 08:10 WBC 19.2 H (3.8-10.6) k/uL RBC 3.31 L (3.80-5.40) m/uL Hgb 9.3 L (11.4-16.0) gm/dL Hct 29.6 L (34.0-46.0) % Plt Count 596 H (150-450) k/uL Neutrophils # 15.0 H (1.3-7.7) k/uL
[2024-06-07] MEDS: HYDROmorphone 1 MG/ML 1 ML SYRINGE IVP PRN (01:22)
--- NOTE | 2024-06-07 07:57 | P.PN ---
Subjective Progress Note Date: 06/06/24 Reason for Consult Consult date: 06/03/24 Medical management - Chief Complaint Status post colectomy - History of Present Illness Patient is a 69-year-old female with recently diagnosed colon mass was admitted to hospital for elective colectomy and splenectomy. Patient had CT of the abdomen pelvis on 05/05/2024 showed descending colon eccentric wall thickening extending up to 9.8 cm concerning for malignancy until proven otherwise. Colonoscopy recommended. No mesenteric lymph nodes identified at this time. No liver masses definitely visualized. Patient had colonoscopy done on 05/19/2024 showed colon mass at 50 cm. Patient is status post surgery. He is complaining of pain and is fairly controlled with pain management. No complaints of chest pain or shortness of breath. No nausea or vomiting. Has not passed flatus. No fever no chills. Laboratory data showed WBC 25.5 hemoglobin 7.6 and platelets 368 Sodium 133 potassium 4.0 chloride 101 bicarb is 28 BUN 15 and creatinine 0.53 and blood sugar 132 Urinalysis is negative for infection. 06/04/2024 Patient is seen in follow-up today status post colectomy with general surgery. Patient is reporting continued nausea with some vomiting and some shortness of breath. Patient is continued on nasal cannula and reports does not wear oxygen outpatient. Will obtain a chest x-ray. White count is elevated and patient denies any bowel activity as of yet. 06/05/2024 Patient is seen in follow-up today and nausea has improved after NG tube placement. Continue on n.p.o. for now per surgery. Encouraged increase activity as tolerated with more frequent walking and getting up off the bed. Patient continues to have significant abdominal pain in the abdomen when moving although patient was able to get up to the chair. Recommend discontinuing Mora catheter and monitoring for voiding issues. No bowel activity as of yet and bowel sounds are currently absent. Possible postop ileus. Patient denies chest pain or palpitations. Patient continues on oxygen via nasal cannula and does not normally wear recommend wean FiO2 as tolerated. 06/06/2024 Patient is seen in follow-up this morning continues with NG tube and n.p.o. Patient maintained on IV hydration and will decrease the dose slightly as patient was continuing to require oxygen. Encouraged incentive spirometer use and weaning oxygen as tolerated. Patient does not wear oxygen outpatient. Likely a component of volume overload. Patient has been extremely weak and difficulty getting up although has been able to do so and Mora catheter removed. Patient is voiding and reports no bowel movement as of yet. Encouraged increase activity as tolerated and getting up and sitting in the chair along with walking more frequently. Patient is afebrile and white count is trending down and hemoglobin is stable above 8. No active bleeding noted. Review of systems: Constitutional: No reports of fatigue, fever, or chills Cardiovascular: No reports of chest pain or palpitations Respiratory: reports of intermittent shortness of breath with exertion GI: No further reports of nausea, no vomiting, reports no gas and no bowel movement as of yet, nausea and vomiting has improved post NG tube placement : No reports of dysuria or retention, will remove Mora catheter and monitor trial void Neurovascular: reports of generalized weakness and pain with movement in the abdomen All medications have been reviewed PHYSICAL EXAMINATION: Patient is lying in the bed , no acute distress, awake alert and oriented.. Appears elderly, obese, well-developed HEENT: Normocephalic. Neck is supple. Pupils reactive. Nostrils clear. Oral cavity is moist. Neck reveals no JVD, carotid bruits, or thyromegaly. CHEST EXAMINATION: Trachea is central. Symmetrical expansion. Bibasilar diminished sounds otherwise lung [place] clear to auscultation and percussion. CARDIAC: Normal S1, S2 with no gallops. No murmurs, sinus tach ABDOMEN: Soft. Bowel sounds diminished. Surgical site bandaged.. Tender on palpation no organomegaly. No abdominal bruits. Extremities: reveal no edema. No clubbing or cyanosis Neurologically awake, alert, oriented x3 with well-coordinated movements. No focal deficits noted Skin: No rash or skin lesions. Psychiatric: Cooperative. Non-suicidal Musculoskeletal: No joint swelling or deformity. Normal range of motion. Assessment: Status post left colectomy and splenectomy. Recently diagnosed colon mass Acute blood loss anemia expected from surgery. Hemoglobin was less than 7 and improved status post unit of PRBC, no active bleeding noted Leukocytosis likely reactive. Status post splenectomy, trending down Acute hypoxic respiratory failure secondary to atelectasis. As well as possible volume overload, wean FiO2 as tolerated Obesity with a BMI 34.9 GI and DVT prophylaxis as per primary team Full code Plan: Patient will be continued on pain management with IV Tylenol and IV Dilaudid and encourage incentive spirometry. Monitor H&H and CBC closely. Hemoglobin is improved over 8 status post a unit of PRBC. Follow-up on repeat labs. No active bleeding noted urinalysis is negative for infection. Continue with IV hydration while patient n.p.o. at a decreased rate. PT OT was consulted and encouraged to increase activity as tolerated with s itting up in the chair more often and frequent walking Patient was reporting some shortness of breath and still on 2 to 3 L nasal cannula and does not normally wear this. Encouraged incentive spirometer use at least 10 times every hour while awake and getting up more frequently and walking and sitting up in the chair, likely a component of volume overload and have decrease the rate of IV infusion We will continue to follow with general surgery during hospitalization. Thank you kindly for this consultation. The impression and plan of care has been dictated by Shannon Villalobos, Nurse Practitioner as directed. Dr. Brie MD I have performed a history and examination and MDM of this patient, discussed the same with the dictator, and agree with the dictator's assessment and plan as written ,documented as a scribe. Based on total visit time, I have performed more than 50% of the visit. Objective - Vital Signs Vital signs: Vital Signs Temp 98.3 F 06/07/24 02:00 Pulse 104 H 06/07/24 02:00 Resp 12 06/07/24 02:00 BP 116/61 06/07/24 02:00 Pulse Ox 93 L 06/07/24 02:00 FiO2 Intake & Output 06/06/24 06/07/24 06/07/24 18:59 06:59 18:59 Output Total 325 500 Balance -325 -500 Output: Gastric Drainage 325 500 Other: Voiding Method Bedside Commode Diaper # Voids 1 - Labs CBC & Chem 7: 06/06/24 08:10 06/05/24 04:17 Labs: Abnormal Lab Results - Last 24 Hours (Table) 06/06/24 Range/Units 08:10 WBC 19.2 H (3.8-10.6) k/uL RBC 3.31 L (3.80-5.40) m/uL Hgb 9.3 L (11.4-16.0) gm/dL Hct 29.6 L (34.0-46.0) % Plt Count 596 H (150-450) k/uL Neutrophils # 15.0 H (1.3-7.7) k/uL
--- NOTE | 2024-06-07 09:23 | P.PN ---
Subjective Progress Note Date: 06/07/24 Principal diagnosis: Post colectomy Patient feels better today. Resting comfortably. Slept well last night. No flatus. Denies nausea. Pain is minimal. Mildly tachycardic. No labs from this morning. Pathology noted. Objective - Vital Signs Vital signs: Vital Signs Temp 98.9 F 06/07/24 07:12 Pulse 105 H 06/07/24 07:12 Resp 16 06/07/24 07:12 BP 150/76 06/07/24 07:12 Pulse Ox 95 06/07/24 07:12 FiO2 Intake & Output 06/06/24 06/07/24 06/07/24 18:59 06:59 18:59 Output Total 325 500 Balance -325 -500 Output: Gastric Drainage 325 500 Other: Voiding Method Bedside Commode Diaper # Voids 1 - Exam Abdomen: Soft, mild distention, mild tenderness, dressing clean and dry - Labs CBC & Chem 7: 06/06/24 08:10 06/05/24 04:17 Assessment and Plan (1) Colon cancer Narrative/Plan: 69-year-old female with left-sided colon cancer. Patient aware of the cancer diagnosis. Continue n.p.o. with nasogastric tube to suction until bowel function returns. Recheck labs tomorrow. Ambulate. Current Visit: Yes Status: Acute Code(s): C18.9 - MALIGNANT NEOPLASM OF COLON, UNSPECIFIED SNOMED Code(s): 593991204
--- NOTE | 2024-06-07 13:25 | P.PN ---
Subjective Progress Note Date: 06/07/24 Patient is a 69-year-old female with recently diagnosed colon mass was admitted to hospital for elective colectomy and splenectomy. Patient had CT of the abdomen pelvis on 05/05/2024 showed descending colon e ccentric wall thickening extending up to 9.8 cm concerning for malignancy until proven otherwise. Colonoscopy recommended. No mesenteric lymph nodes identified at this time. No liver masses definitely visualized. Patient had colonoscopy done on 05/19/2024 showed colon mass at 50 cm. Patient is status post surgery. He is complaining of pain and is fairly controlled with pain management. No complaints of chest pain or shortness of breath. No nausea or vomiting. Has not passed flatus. No fever no chills. Laboratory data showed WBC 25.5 hemoglobin 7.6 and platelets 368 Sodium 133 potassium 4.0 chloride 101 bicarb is 28 BUN 15 and creatinine 0.53 and blood sugar 132 Urinalysis is negative for infection. 06/04/2024 Patient is seen in follow-up today status post colectomy with general surgery. Patient is reporting continued nausea with some vomiting and some shortness of breath. Patient is continued on nasal cannula and reports does not wear oxygen outpatient. Will obtain a chest x-ray. White count is elevated and patient denies any bowel activity as of yet. 06/05/2024 Patient is seen in follow-up today and nausea has improved after NG tube placement. Continue on n.p.o. for now per surgery. Encouraged increase activity as tolerated with more frequent walking and getting up off the bed. Patient continues to have significant abdominal pain in the abdomen when moving although patient was able to get up to the chair. Recommend discontinuing Mora catheter and monitoring for voiding issues. No bowel activity as of yet and bowel sounds are currently absent. Possible postop ileus. Patient denies chest pain or palpitations. Patient continues on oxygen via nasal cannula and does not normally wear recommend wean FiO2 as tolerated. 06/06/2024 Patient is seen in follow-up this morning continues with NG tube and n.p.o. Patient maintained on IV hydration and will decrease the dose slightly as patient was continuing to require oxygen. Encouraged incentive spirometer use and weaning oxygen as tolerated. Patient does not wear oxygen outpatient. Likely a component of volume overload. Patient has been extremely weak and difficulty getting up although has been able to do so and Mora catheter removed. Patient is voiding and reports no bowel movement as of yet. Encouraged increase activity as tolerated and getting up and sitting in the chair along with walking more frequently. Patient is afebrile and white count is trending down and hemoglobin is stable above 8. No active bleeding noted. 06/07. Patient seen and examined. Still has NG tube in place. Patient is not passing any gas or bowel movement REVIEW OF SYSTEMS: CONSTITUTIONAL: No fever, no malaise,. CARDIOVASCULAR: No chest pain, no palpitations, no syncope. PULMONARY: No shortness of breath, no cough, GASTROINTESTINAL: Complaining of abdominal pain at site of surgery NEUROLOGICAL: No headaches, no weakness, PHYSICAL EXAMINATION: GENERAL: The patient is alert and oriented x3, not in any acute distress. Well developed, well nourished. HEENT: Pupils are round and equally reacting to light. EOMI. No scleral icterus. No conjunctival pallor. Normocephalic, atraumatic. No pharyngeal erythema. No thyromegaly. CARDIOVASCULAR: S1 and S2 present. No murmurs, rubs, or gallops. PULMONARY: Chest is clear to auscultation, no wheezing or crackles. ABDOMEN: Soft, nontender, nondistended, surgical incision seen MUSCULOSKELETAL: No joint swelling or deformity. EXTREMITIES: No cyanosis, clubbing, or pedal edema. NEUROLOGICAL: Gross neurological examination did not reveal any focal deficits. SKIN: No rashes. Assessment and plan Status post left colectomy and splenectomy. Recently diagnosed colon mass Acute blood loss anemia expected from surgery. Hemoglobin was less than 7 and improved status post unit of PRBC, no active bleeding noted Leukocytosis likely reactive. Status post splenectomy, trending down Acute hypoxic respiratory failure secondary to atelectasis. As well as possible volume overload, wean FiO2 as tolerated Obesity with a BMI 34.9 Monitor vital signs Monitor CBC Monitor CMP Serial abdominal exam Continue NG tube per surgery Continue IV fluids Continue pain management Surgery following Labs and medication were reviewed.. Continue same treatment. Continue with symptomatic treatment. Resume home medication. Monitor labs and vitals. DVT and GI prophylaxis. Further recommendations as per clinical course of the patient Dictation was produced using [employer] dictation software. please excuse any grammatical, word or spelling errors. Objective - Vital Signs Vital signs: Vital Signs Temp 98.9 F 06/07/24 07:12 Pulse 105 H 06/07/24 07:12 Resp 16 06/07/24 07:12 BP 150/76 06/07/24 07:12 Pulse Ox 95 06/07/24 07:12 FiO2 Intake & Output 06/06/24 06/07/24 06/07/24 18:59 06:59 18:59 Output Total 325 500 Balance -325 -500 Output: Gastric Drainage 325 500 Other: Voiding Method Bedside Commode Diaper # Voids 1 - Labs CBC & Chem 7: 06/06/24 08:10 06/05/24 04:17
[2024-06-08 10:12] LABS: HCT 24.7 % (37.2-46.3); HGB 7.7 g/dL (12.0-15.0); MCHC 31.2 g/dL (32.0-37.0); MCV 89.8 FL (80.0-97.0); Mean Platelet Volume 9.8 FL (9.5-12.2); NRBC Per 100 WBC 0.09 X 10*3/uL (0.00-0.01); Platelet Count 629 X 10*3/uL (140-440); RBC 2.75 X 10*6/uL (4.10-5.20); RDW 15.9 % (11.5-14.5); WBC 19.25 X 10*3/uL (4.50-10.00)
[2024-06-08 10:20] LABS: Blood Urea Nitrogen 3.6 mg/dL (9.0-27.0); Calcium 7.9 mg/dL (8.7-10.3); Carbon Dioxide 26.7 mmol/L (21.6-31.8); Chloride 99 mmol/L (96-109); Glucose 110 mg/dL (70-110); Potassium 3.4 mmol/L (3.5-5.5); Sodium 136 mmol/L (135-145)
--- NOTE | 2024-06-08 10:24 | P.PN ---
Subjective Progress Note Date: 06/08/24 Principal diagnosis: Post colectomy Patient sitting up in the chair. Seems comfortable. Denies any significant pain. Thinks she is close to the moving her bowels. No nausea or vomiting. Gastric tube in place. Objective - Vital Signs Vital signs: Vital Signs Temp 98.8 F 06/08/24 06:55 Pulse 92 06/08/24 06:55 Resp 16 06/08/24 06:55 BP 172/73 06/08/24 06:55 Pulse Ox 90 L 06/08/24 06:55 FiO2 Intake & Output 06/07/24 06/08/24 06/08/24 18:59 06:59 18:59 Output Total 1200 225 Balance -1200 -225 Output: Gastric Drainage 1200 225 Other: Voiding Method Bedside Commode Diaper # Voids 4 - Exam Abdomen: Soft, mild distention, mild tenderness, dressing clean and dry - Labs CBC & Chem 7: 06/08/24 05:02 06/08/24 05:02 Labs: Abnormal Lab Results - Last 24 Hours (Table) 06/08/24 06/08/24 Range/Units 05:02 05:02 WBC 19.25 H (4.50-10.00) X 10*3/uL RBC 2.75 L (4.10-5.20) X 10*6/uL Hgb 7.7 L (12.0-15.0) g/dL Hct 24.7 L (37.2-46.3) % MCHC 31.2 L (32.0-37.0) g/dL RDW 15.9 H (11.5-14.5) % Plt Count 629 H (140-440) X 10*3/uL NRBC/100 WBC Diff 0.09 H (0.00-0.01) X 10*3/uL Potassium 3.4 L (3.5-5.5) mmol/L BUN 3.6 L (9.0-27.0) mg/dL Creatinine 0.4 L (0.6-1.5) mg/dL BUN/Creatinine Ratio 9.00 L (12.00-20.00) Ratio Calcium 7.9 L (8.7-10.3) mg/dL Assessment and Plan (1) Colon cancer Narrative/Plan: Patient doing well today. More active. Less discomfort. No nausea. Await return of bowel function. Continue gastric decompression. Recheck labs tomorrow. Labs from today noted. Current Visit: Yes Status: Acute Code(s): C18.9 - MALIGNANT NEOPLASM OF COLON, UNSPECIFIED SNOMED Code(s): 251906730
[2024-06-08 11:49] LABS: Basophils # (A) 0.09 X 10*3/uL (0.00-0.10); Basophils % (A) 0.5 %; Eosinophils # (A) 0.24 X 10*3/uL (0.04-0.35); Eosinophils % (A) 1.2 %; Lymphocytes # (A) 2.68 X 10*3/uL (0.90-5.00); Lymphocytes % (A) 13.9 %; Monocytes # (A) 1.32 X 10*3/uL (0.20-1.00); Monocytes % (A) 6.9 %; Neutrophils % (A) 75.8 %; RBC Morphology Normal (Normal)
--- NOTE | 2024-06-08 12:20 | P.PN ---
Subjective Progress Note Date: 06/08/24 Patient is a 69-year-old female with recently diagnosed colon mass was admitted to hospital for elective colectomy and splenectomy. Patient had CT of the abdomen pelvis on 05/05/2024 showed descending colon e ccentric wall thickening extending up to 9.8 cm concerning for malignancy until proven otherwise. Colonoscopy recommended. No mesenteric lymph nodes identified at this time. No liver masses definitely visualized. Patient had colonoscopy done on 05/19/2024 showed colon mass at 50 cm. Patient is status post surgery. He is complaining of pain and is fairly controlled with pain management. No complaints of chest pain or shortness of breath. No nausea or vomiting. Has not passed flatus. No fever no chills. Laboratory data showed WBC 25.5 hemoglobin 7.6 and platelets 368 Sodium 133 potassium 4.0 chloride 101 bicarb is 28 BUN 15 and creatinine 0.53 and blood sugar 132 Urinalysis is negative for infection. 06/04/2024 Patient is seen in follow-up today status post colectomy with general surgery. Patient is reporting continued nausea with some vomiting and some shortness of breath. Patient is continued on nasal cannula and reports does not wear oxygen outpatient. Will obtain a chest x-ray. White count is elevated and patient denies any bowel activity as of yet. 06/05/2024 Patient is seen in follow-up today and nausea has improved after NG tube placement. Continue on n.p.o. for now per surgery. Encouraged increase activity as tolerated with more frequent walking and getting up off the bed. Patient continues to have significant abdominal pain in the abdomen when moving although patient was able to get up to the chair. Recommend discontinuing Mora catheter and monitoring for voiding issues. No bowel activity as of yet and bowel sounds are currently absent. Possible postop ileus. Patient denies chest pain or palpitations. Patient continues on oxygen via nasal cannula and does not normally wear recommend wean FiO2 as tolerated. 06/06/2024 Patient is seen in follow-up this morning continues with NG tube and n.p.o. Patient maintained on IV hydration and will decrease the dose slightly as patient was continuing to require oxygen. Encouraged incentive spirometer use and weaning oxygen as tolerated. Patient does not wear oxygen outpatient. Likely a component of volume overload. Patient has been extremely weak and difficulty getting up although has been able to do so and Mora catheter removed. Patient is voiding and reports no bowel movement as of yet. Encouraged increase activity as tolerated and getting up and sitting in the chair along with walking more frequently. Patient is afebrile and white count is trending down and hemoglobin is stable above 8. No active bleeding noted. 06/07. Patient seen and examined. Still has NG tube in place. Patient is not passing any gas or bowel movement 06/08. Patient seen and examined. Patient desaturated overnight, had to be placed on oxygen. Will order chest x-ray and pulmonary consult REVIEW OF SYSTEMS: CONSTITUTIONAL: No fever, no malaise,. CARDIOVASCULAR: No chest pain, no palpitations, no syncope. PULMONARY: No shortness of breath, no cough, GASTROINTESTINAL: Complaining of abdominal pain at site of surgery NEUROLOGICAL: No headaches, no weakness, PHYSICAL EXAMINATION: GENERAL: The patient is alert and oriented x3, not in any acute distress. Well developed, well nourished. HEENT: Pupils are round and equally reacting to light. EOMI. No scleral icterus. No conjunctival pallor. Normocephalic, atraumatic. No pharyngeal erythema. No thyromegaly. CARDIOVASCULAR: S1 and S2 present. No murmurs, rubs, or gallops. PULMONARY: Diminished breath sounds at the bases bilaterally ABDOMEN: Soft, nontender, nondistended, surgical incision seen MUSCULOSKELETAL: No joint swelling or deformity. EXTREMITIES: No cyanosis, clubbing, or pedal edema. NEUROLOGICAL: Gross neurological examination did not reveal any focal deficits. SKIN: No rashes. Assessment and plan Status post left colectomy and splenectomy. Recently diagnosed colon mass Acute blood loss anemia expected from surgery. Hemoglobin was less than 7 and improved status post unit of PRBC, no active bleeding noted Leukocytosis likely reactive. Status post splenectomy, trending down Acute hypoxic respiratory failure secondary to atelectasis. As well as possible volume overload, wean FiO2 as tolerated Obesity with a BMI 34.9 Monitor vital signs Monitor CBC Monitor CMP Encourage use of I-S Ordered chest x-ray Serial abdominal exam Continue NG tube per surgery Continue IV fluids Continue pain management Surgery following Pulmonary consult Labs and medication were reviewed.. Continue same treatment. Continue with symptomatic treatment. Resume home medication. Monitor labs and vitals. DVT and GI prophylaxis. Further recommendations as per clinical course of the patient Dictation was produced using [employer] dictation software. please excuse any grammatical, word or spelling errors. Objective - Vital Signs Vital signs: Vital Signs Temp 98.8 F 06/08/24 11:17 Pulse 102 H 06/08/24 11:17 Resp 16 06/08/24 11:17 BP 141/79 06/08/24 11:17 Pulse Ox 91 L 06/08/24 11:17 FiO2 Intake & Output 06/07/24 06/08/24 06/08/24 18:59 06:59 18:59 Output Total 1200 225 Balance -1200 -225 Output: Gastric Drainage 1200 225 Other: Voiding Method Bedside Commode Diaper # Voids 4 - Labs CBC & Chem 7: 06/08/24 05:02 06/08/24 05:02 Labs: Abnormal Lab Results - Last 24 Hours (Table) 06/08/24 06/08/24 Range/Units 05:02 05:02 WBC 19.25 H (4.50-10.00) X 10*3/uL RBC 2.75 L (4.10-5.20) X 10*6/uL Hgb 7.7 L (12.0-15.0) g/dL Hct 24.7 L (37.2-46.3) % MCHC 31.2 L (32.0-37.0) g/dL RDW 15.9 H (11.5-14.5) % Plt Count 629 H (140-440) X 10*3/uL Immature Gran # 0.32 H (0.00-0.04) X 10*3/uL Neutrophils # 14.60 H (1.80-7.70) X 10*3/uL Monocytes # 1.32 H (0.20-1.00) X 10*3/uL NRBC/100 WBC Diff 0.09 H (0.00-0.01) X 10*3/uL Potassium 3.4 L (3.5-5.5) mmol/L BUN 3.6 L (9.0-27.0) mg/dL Creatinine 0.4 L (0.6-1.5) mg/dL BUN/Creatinine Ratio 9.00 L (12.00-20.00) Ratio Calcium 7.9 L (8.7-10.3) mg/dL
--- NOTE | 2024-06-08 12:20 | XR ---
EXAMINATION TYPE: XR chest 2V DATE OF EXAM: 06/08/2024 COMPARISON: 06/04/2024 HISTORY: PICC line in O2 postop TECHNIQUE: Frontal and lateral views of the chest are obtained. FINDINGS: There is an NG tube within the stomach. The heart size is normal and the pulmonary vasculature is not congested. Mild atelectasis left lung base has cleared and there is no parenchymal opacification. There is no pleural effusion or pneumothorax. The osseous structures are intact IMPRESSION: No acute cardiopulmonary process. [facility], , 06/08/2024 12:18 PM
--- NOTE | 2024-06-08 13:36 | P.CNPUL ---
History of Present Illness Consult date: 06/08/24 Reason for consult: hypoxemia History of present illness: This is a 69-year-old female patient, I was asked to consult on this patient because of hypoxemia the patient is currently on 2 L of oxygen by nasal cannula. In summary, the patient is a case of a recently diagnosed colon mass and the patient was admitted to the hospital for an elective colectomy and splenectomy. The patient had a CAT scan of the abdomen pelvis that was done on 05/05/2024 showed descending colon mass that was quite suspicious for malignancy. Colonoscopy on 05/19/2024 showed a colonic mass and the level of 50 cm from the anal verge and the patient underwent a left colectomy and splenectomy on 06/02/2024. Postop, the patient was being followed up by the medical group and general surgery. She was encountering some nausea for which an NG tube was inserted and the patient was kept NPO. The patient was being hydrated with IV fluids. She remained afebrile and she demonstrated no evidence of any bleeding. Overnight, the patient desaturated and the patient was placed on 2 L of oxygen by nasal cannula. The white cell count is at 19.2 which is stable/improved and the patient's hemoglobin also has dropped down to 7.7 with a platelet count of 629 and the patient has a BUN of 3 with a creatinine of 0.4 and sodium levels at 136. Chest x-ray was done and showed NG tube being in good location. No acute cardiopulmonary process. Some minor atelectatic changes in the left lung base which are essentially improving. The patient is currently on D5 half-normal saline at rate of 50 cc an hour. The patient is on Zofran, Reglan and Dilaudid for pain control. The patient remains on Pepcid. No hemoptysis. No pleurisy. No reported aspiration. The surgical pathology was consistent with invasive moderate differentiated chronic adenocarcinoma with negative marginsAnd there was no omental involvement. The spleen was negative for carcinoma. Tumor size was 8 cm in size and the lymph nodes were also negative. Review of Systems Constitutional: Reports as per HPI Eyes: denies as per HPI, denies blurred vision, denies bulging eye, denies decreased vision, denies diplopia, denies discharge, denies dry eye, denies irritation, denies itching, denies pain, denies photophobia, denies loss of peripheral vision, denies loss of vision, denies tunnel vision/blind spots Ears: deny: decreased hearing, ear discharge, earache, tinnitus Ears, nose, mouth and throat: Reports as per HPI Breasts: absent: as per HPI, change in shape, gynecomastia, masses, nipple discharge, pain, skin changes, swelling Breasts: Reports as per HPI Cardiovascular: Reports as per HPI Respiratory: Reports as per HPI Gastrointestinal: Reports as per HPI (Patient is currently n.p.o. post abdominal surgery) Genitourinary: Reports as per HPI Menstruation: Reports as per HPI Musculoskeletal: Reports as per HPI Musculoskeletal: absent: ankle pain, ankle stiffness, ankle swelling, as per HPI, elbow pain, elbow stiffness, elbow swelling, foot pain, foot stiffness, foot swelling, hand pain, hand stiffness, hand swelling, hip pain, hip stiffness , hip swelling, knee pain, knee stiffness, knee swelling, shoulder pain, shoulder stiffness, shoulder swelling, wrist pain, wrist stiffness, wrist swelling Integumentary: Reports as per HPI Neurological: Reports as per HPI Psychiatric: Reports as per HPI Endocrine: Reports as per HPI Hematologic/Lymphatic: Reports as per HPI Allergic/Immunologic: Reports as per HPI Past Medical History Past Medical History: Cancer, Osteoarthritis (OA) Additional Past Medical History / Comment(s): colon Ca-dx Apr 2024,Patient states since the end of February 2024 has not been able to smoke cigarettes or drink coffee, is only able to eat about half of what she used to eat, has abdominal pain, especially when trying to eat, bloating, constipation and greasy smells(for example from sausage cooking)give me nausea. Varicose veins History of Any Multi-Drug Resistant Organisms: None Reported Past Surgical History: Tubal Ligation Additional Past Surgical History / Comment(s): D&C X4,colonoscopy Past Anesthesia/Blood Transfusion Reactions: Previous Problems w/ Anesthesia Additional Past Anesthesia/Blood Transfusion Reaction / Comment(s): Patient states she had 4 D&C's in 0180-2140 and her heart stopped all 4 times and ended up in the Cardiac Unit. States has not had any anesthesia since then. pt states "No complications with colonoscopy Apr 2024 but b/p was high prior to colonoscopy." Smoking Status: Former smoker - Past Family History Mother Family Medical History: No Reported History Medications and Allergies Home Medications Medication Instructions Recorded Confirmed Type Ibuprofen [Advil] 400 mg PO Q6HR PRN 05/30/24 06/02/24 History Laxative 1 dose PO DAILY PRN 05/30/24 06/02/24 History Acetaminophen Tab [Tylenol] 1,000 mg PO PRN 06/02/24 History Allergies Allergy/AdvReac Type Severity Reaction Status Date / Time No Known Allergies Allergy Verified 06/02/24 08:47 Physical Exam Vitals: Vital Signs Temp Pulse Resp BP BP Pulse Ox 06/08/24 12:47 98.5 F 106 H 16 133/81 92 L 06/08/24 11:17 98.8 F 102 H 16 141/79 91 L 06/08/24 06:55 98.8 F 92 16 172/73 90 L 06/08/24 02:00 99.4 F 111 H 14 144/84 96 06/07/24 20:00 109 H 14 06/07/24 19:32 98.9 F 109 H 14 132/74 91 L Intake and Output 06/07/24 06/08/24 06/08/24 22:59 06:59 14:59 Output Total 1200 225 Balance -1200 -225 Output: Gastric Drainage 1200 225 Other: Voiding Method Bedside Commode Diaper # Voids 4 GENERAL: The patient is alert and oriented x3, not in any acute distress. Well developed, well nourished. The patient has NG tube in place Head exam was generally normal. There was no scleral icterus or corneal arcus. Mucous membranes were moist. HEENT: Pupils are round and equally reacting to light. EOMI. No scleral icterus. No conjunctival pallor. Normocephalic, atraumatic. No pharyngeal erythema. No thyromegaly. CARDIOVASCULAR: S1 and S2 present. No murmurs, rubs, or gallops. PULMONARY: Diminished breath sounds at the bases bilaterally ABDOMEN: Soft, nontender, nondistended, surgical incision seen, bowel sounds are hypoactive. No directedness. No rebound tenderness or guarding MUSCULOSKELETAL: No joint swelling or deformity. EXTREMITIES: No cyanosis, clubbing, or pedal edema. NEUROLOGICAL: Gross neurological examination did not reveal any focal deficits. SKIN: No rashes. Results - Laboratory Findings CBC and BMP: 06/08/24 05:02 06/08/24 05:02 PT/INR, D-dimer PT 10.5 sec (10.0-12.5) 06/02/24 08:45 INR 0.9 (<1.2) 06/02/24 08:45 Abnormal lab findings: Abnormal Labs 06/02/24 06/02/24 06/02/24 08:45 08:45 09:00 WBC 18.7 H RBC Hgb Hct MCHC RDW Plt Count 477 H Immature Gran # Neutrophils # 14.6 H Lymphocytes # Monocytes # NRBC/100 WBC Diff Sodium Potassium Carbon Dioxide BUN Creatinine BUN/Creatinine Ratio Glucose 103 H Calcium AST 42 H Urine Appearance Urine Blood Urine RBC Urine Bacteria Urine Mucus Crossmatch See Detail 06/02/24 06/02/24 06/03/24 17:19 17:19 08:04 WBC 23.3 H 25.5 H RBC 3.05 L 2.79 L Hgb 8.4 L D 7.6 L Hct 27.0 L 24.7 L MCHC 30.8 L RDW 15.8 H Plt Count Immature Gran # Neutrophils # 21.3 H 22.0 H Lymphocytes # 0.9 L Monocytes # NRBC/100 WBC Diff Sodium 136 L Potassium Carbon Dioxide BUN Creatinine BUN/Creatinine Ratio Glucose 143 H Calcium 8.3 L AST Urine Appearance Urine Blood Urine RBC Urine Bacteria Urine Mucus Crossmatch 06/03/24 06/03/24 06/04/24 08:04 19:11 05:23 WBC 25.3 H RBC 2.49 L Hgb 6.9 L* Hct 22.3 L MCHC 30.9 L RDW Plt Count Immature Gran # Neutrophils # 22.9 H Lymphocytes # Monocytes # NRBC/100 WBC Diff Sodium 133 L Potassium Carbon Dioxide BUN Creatinine BUN/Creatinine Ratio Glucose 132 H Calcium 8.3 L AST Urine Appearance Cloudy H Urine Blood Trace H Urine RBC 9 H Urine Bacteria Rare H Urine Mucus Rare H Crossmatch 06/04/24 06/04/24 06/05/24 05:23 16:06 04:17 WBC 26.5 H 24.0 H RBC 3.00 L 2.82 L Hgb 8.4 L D 8.1 L Hct 26.6 L 25.1 L MCHC RDW Plt Count Immature Gran # Neutrophils # 24.8 H 21.4 H Lymphocytes # Monocytes # NRBC/100 WBC Diff Sodium Potassium Carbon Dioxide BUN 8.0 L Creatinine 0.5 L BUN/Creatinine Ratio Glucose 141 H Calcium 8.2 L AST Urine Appearance Urine Blood Urine RBC Urine Bacteria Urine Mucus Crossmatch 06/05/24 06/06/24 06/08/24 04:17 08:10 05:02 WBC 19.2 H 19.25 H RBC 3.31 L 2.75 L Hgb 9.3 L 7.7 L Hct 29.6 L 24.7 L MCHC 31.2 L RDW 15.9 H Plt Count 596 H 629 H Immature Gran # 0.32 H Neutrophils # 15.0 H 14.60 H Lymphocytes # Monocytes # 1.32 H NRBC/100 WBC Diff 0.09 H Sodium 136 L Potassium Carbon Dioxide 31 H BUN 6 L Creatinine 0.50 L BUN/Creatinine Ratio Glucose 115 H Calcium 8.2 L AST Urine Appearance Urine Blood Urine RBC Urine Bacteria Urine Mucus Crossmatch 06/08/24 05:02 WBC RBC Hgb Hct MCHC RDW Plt Count Immature Gran # Neutrophils # Lymphocytes # Monocytes # NRBC/100 WBC Diff Sodium Potassium 3.4 L Carbon Dioxide BUN 3.6 L Creatinine 0.4 L BUN/Creatinine Ratio 9.00 L Glucose Calcium 7.9 L AST Urine Appearance Urine Blood Urine RBC Urine Bacteria Urine Mucus Crossmatch - Diagnostic Findings Chest x-ray: image reviewed Assessment and Plan Plan: Acute hypoxic respiratory failure, the basis of postop atelectatic changes. Evidence of pneumonia. No reported aspiration. Patient remains NPO. Continues to receive gastric decompression with NG tube. Currently on 2 L of oxygen by nasal cannula Colonic mass, 8 cm in size, around 50 cm from the anal verge and the patient underwent a left colectomy and splenectomy. The patient remains n.p.o. Blood loss anemia and postop, the patient dropped her hemoglobin down to 6.9, requiring a unit of packed RBC and the most recent hemoglobin is at 7.7 Leukocytosis, likely reactive postsplenectomy Obesity with a BMI of 34.9 Plan Aggressive use of incentive spirometer Monitor oxygenation and titrate To Maintain Saturation above 90% Chest x-ray was reviewed, no acute abnormalities Monitor hemoglobin Monitor the white cell count IV fluids Pain management Improve mobility Will continue to follow
[2024-06-08] MEDS: FUROSEMIDE 10 MG/ML 2 ML VIAL IV ONE (14:03)
[2024-06-09 08:27] LABS: HCT 24.1 % (37.2-46.3); HGB 7.6 g/dL (12.0-15.0); MCH 27.8 pg (27.0-32.0); MCHC 31.5 g/dL (32.0-37.0); MCV 88.3 FL (80.0-97.0); Mean Platelet Volume 9.6 FL (9.5-12.2); NRBC Per 100 WBC 0.12 X 10*3/uL (0.00-0.01); Platelet Count 670 X 10*3/uL (140-440); RBC 2.73 X 10*6/uL (4.10-5.20); WBC 20.59 X 10*3/uL (4.50-10.00)
[2024-06-09 08:41] LABS: Blood Urea Nitrogen 6.6 mg/dL (9.0-27.0); Calcium 8.1 mg/dL (8.7-10.3); Carbon Dioxide 27.2 mmol/L (21.6-31.8); Chloride 100 mmol/L (96-109); Glucose 101 mg/dL (70-110); Potassium 3.4 mmol/L (3.5-5.5); Sodium 136 mmol/L (135-145)
[2024-06-09 09:19] LABS: Basophils # (A) 0.07 X 10*3/uL (0.00-0.10); Basophils % (A) 0.3 %; Eosinophils # (A) 0.21 X 10*3/uL (0.04-0.35); Lymphocytes # (A) 2.95 X 10*3/uL (0.90-5.00); Lymphocytes % (A) 14.3 %; Monocytes # (A) 1.84 X 10*3/uL (0.20-1.00); Monocytes % (A) 8.9 %; Neutrophils # (A) 15.16 X 10*3/uL (1.80-7.70); Neutrophils % (A) 73.8 %
--- NOTE | 2024-06-09 11:56 | P.PN ---
Subjective Progress Note Date: 06/09/24 SURGICAL PROGRESS NOTE CHIEF COMPLAINT: Colon mass HISTORY OF PRESENT ILLNESS: Patient is postop day #7 status post left colectomy and splenectomy. Patient continues to have NG tube in place. Patient with 400 mL output through NG tube. Still no bowel activity. She did have mild tachycardia. Did have nausea last night. Afebrile. WBC 20.59 Hgb 7.6 platelets 670 potassium is 3.4. Patient did receive a dose of Lasix yesterday. PHYSICAL EXAM: VITAL SIGNS: Reviewed. GENERAL: Well-developed in no acute distress. ABDOMEN: Soft. Mildly distended. Mild tenderness at incision site. Incisional dressing clean dry and intact. Abdominal binder in place. NEUROLOGIC: Alert and oriented. Cranial nerves II through XII grossly intact. ASSESSMENT: 1. Left colon mass invading into the retroperitoneum status post left colectomy 2. Anemia possible acute blood loss anemia from surgery 3. Leukocytosis reactive from splenectomy 4. Possible postoperative ileus can be an expected finding PLAN: -Continue NG tube for decompression -Keep patient n.p.o. -Replace potassium -Continue pain management -Continue Reglan -Encourage patient to ambulate -Continue IV fluids -Encourage patient to use incentive spirometer -GI prophylaxis Pepcid and DVT prophylaxis SCDs Physician Aquaculture Worker note has been reviewed by physician. Signing provider agrees with the documented findings, assessment, and plan of care. Objective - Vital Signs Vital signs: Vital Signs Temp 98.8 F 06/09/24 07:36 Pulse 102 H 06/09/24 07:36 Resp 15 06/09/24 07:36 BP 126/84 06/09/24 07:36 Pulse Ox 94 L 06/09/24 07:36 FiO2 Intake & Output 06/08/24 06/09/24 06/09/24 18:59 06:59 18:59 Intake Total 550 Output Total 400 400 Balance -400 150 Intake: Intake, IV Titration 550 Amount Dextrose 5%-0.45% NaCl 1, 550 000 ml @ 50 mls/hr IV . Q20H GABRIEL Rx#:[id number] Oral 0 Output: Gastric Drainage 400 400 Other: Voiding Method Bedpan Diaper # Voids 6 1 - Labs CBC & Chem 7: 06/09/24 04:42 06/09/24 04:42 Labs: Abnormal Lab Results - Last 24 Hours (Table) 06/09/24 06/09/24 Range/Units 04:42 04:42 WBC 20.59 H (4.50-10.00) X 10*3/uL RBC 2.73 L (4.10-5.20) X 10*6/uL Hgb 7.6 L (12.0-15.0) g/dL Hct 24.1 L (37.2-46.3) % MCHC 31.5 L (32.0-37.0) g/dL RDW 16.0 H (11.5-14.5) % Plt Count 670 H (140-440) X 10*3/uL Immature Gran # 0.36 H (0.00-0.04) X 10*3/uL Neutrophils # 15.16 H (1.80-7.70) X 10*3/uL Monocytes # 1.84 H (0.20-1.00) X 10*3/uL NRBC/100 WBC Diff 0.12 H (0.00-0.01) X 10*3/uL Potassium 3.4 L (3.5-5.5) mmol/L BUN 6.6 L (9.0-27.0) mg/dL Creatinine 0.4 L (0.6-1.5) mg/dL Calcium 8.1 L (8.7-10.3) mg/dL
[2024-06-09] MEDS: POTASSIUM CHLORIDE 10 MEQ in WATER FOR INJECTION 1 100ML.BAG IVPB SCH (12:22)
--- NOTE | 2024-06-09 12:57 | P.PN ---
Subjective Progress Note Date: 06/09/24 This is a 69-year-old female patient, I was asked to consult on this patient because of hypoxemia the patient is currently on 2 L of oxygen by nasal cannula. In summary, the patient is a case of a recently diagnosed colon mass and the patient was admitted to the hospital for an elective colectomy and splenectomy. The patient had a CAT scan of the abdomen pelvis that was done on 05/05/2024 showed descending colon mass that was quite suspicious for malignancy. Colonoscopy on 05/19/2024 showed a colonic mass and the level of 50 cm from the anal verge and the patient underwent a left colectomy and splenectomy on 06/02/2024. Postop, the patient was being followed up by the medical group and general surgery. She was encountering some nausea for which an NG tube was inserted and the patient was kept NPO. The patient was being hydrated with IV fluids. She remained afebrile and she demonstrated no evidence of any bleeding. Overnight, the patient desaturated and the patient was placed on 2 L of oxygen by nasal cannula. The white cell count is at 19.2 which is stable/improved and the patient's hemoglobin also has dropped down to 7.7 with a platelet count of 629 and the patient has a BUN of 3 with a creatinine of 0.4 and sodium levels at 136. Chest x-ray was done and showed NG tube being in good location. No acute cardiopulmonary process. Some minor atelectatic changes in the left lung base which are essentially improving. The patient is currently on D5 half-normal saline at rate of 50 cc an hour. The patient is on Zofran, Reglan and Dilaudid for pain control. The patient remains on Pepcid. No hemoptysis. No pleurisy. No reported aspiration. The surgical pathology was consistent with invasive moderate differentiated chronic adenocarcinoma with negative marginsAnd there w as no omental involvement. The spleen was negative for carcinoma. Tumor size was 8 cm in size and the lymph nodes were also negative. The patient is seen today June 09, 2024 in follow-up on the regular medical floor. She is currently sitting up in bed. Awake and alert in no acute distress. Maintaining O2 saturations in the 90s on 2 L/min per nasal cannula. Chest x-ray had revealed evidence of atelectasis. She is encouraged regarding the increased use of the incentive spirometer. She has D5 and a half normal saline at 50 mL/h. Nasogastric tube remains in place. White count 20.5. Hemoglobin 7.6. Platelets 670. Sodium 136. Potassium 3.4. Bicarb 27. BUN 7. Creatinine 0.4. Glucose 101. Objective - Vital Signs Vital signs: Vital Signs Temp 98.8 F 06/09/24 07:36 Pulse 102 H 06/09/24 07:36 Resp 15 06/09/24 07:36 BP 126/84 06/09/24 07:36 Pulse Ox 94 L 06/09/24 07:36 FiO2 Intake & Output 06/08/24 06/09/24 06/09/24 18:59 06:59 18:59 Intake Total 550 Output Total 400 400 Balance -400 150 Intake: Intake, IV Titration 550 Amount Dextrose 5%-0.45% NaCl 1, 550 000 ml @ 50 mls/hr IV . Q20H GABRIEL Rx#:[id number] Oral 0 Output: Gastric Drainage 400 400 Other: Voiding Method Bedpan Diaper # Voids 6 1 - Exam GENERAL EXAM: Alert, active, 69-year-old female, on 2 L nasal cannula, comfortable in no apparent distress. HEAD: Normocephalic. EYES: Normal reaction of pupils, equal size. NOSE: Clear with pink turbinates. THROAT: No erythema or exudates. NECK: No masses, no JVD. CHEST: No chest wall deformity. LUNGS: Equal air entry with no crackles, wheeze, rhonchi or dullness. CVS: S1 and S2 normal with no audible murmur, regular rhythm. ABDOMEN: Abdominal binder in place. Dressing dry and intact. Normal bowel sounds, no guarding or rigidity. SPINE: No scoliosis or deformity SKIN: No rashes CENTRAL NERVOUS SYSTEM: No focal deficits, tone is normal in all 4 extremities. EXTREMITIES: SCDs in place. There is no peripheral edema. No clubbing, no cyan osis. Peripheral pulses are intact. - Labs CBC & Chem 7: 06/09/24 04:42 06/09/24 04:42 Labs: Abnormal Lab Results - Last 24 Hours (Table) 06/09/24 06/09/24 Range/Units 04:42 04:42 WBC 20.59 H (4.50-10.00) X 10*3/uL RBC 2.73 L (4.10-5.20) X 10*6/uL Hgb 7.6 L (12.0-15.0) g/dL Hct 24.1 L (37.2-46.3) % MCHC 31.5 L (32.0-37.0) g/dL RDW 16.0 H (11.5-14.5) % Plt Count 670 H (140-440) X 10*3/uL Immature Gran # 0.36 H (0.00-0.04) X 10*3/uL Neutrophils # 15.16 H (1.80-7.70) X 10*3/uL Monocytes # 1.84 H (0.20-1.00) X 10*3/uL NRBC/100 WBC Diff 0.12 H (0.00-0.01) X 10*3/uL Potassium 3.4 L (3.5-5.5) mmol/L BUN 6.6 L (9.0-27.0) mg/dL Creatinine 0.4 L (0.6-1.5) mg/dL Calcium 8.1 L (8.7-10.3) mg/dL Assessment and Plan Assessment: Acute hypoxic respiratory failure, secondary to postop atelectatic changes. No evidence of pneumonia. No reported aspiration. Patient remains NPO. Continues to receive gastric decompression with NG tube. Currently on 2 L of oxygen by nasal cannula Adenocarcinoma of colonic mass and the patient underwent a left colectomy and splenectomy on June 02, 2024. The patient remains n.p.o. Blood loss anemia and postop, the patient dropped her hemoglobin down to 6.9, requiring a unit of packed RBC and the most recent hemoglobin is at 7.6 Leukocytosis, likely reactive postsplenectomy Obesity with a BMI of 34.9 Plan: The patient was seen and evaluated Labs and medications reviewed Encourage increased use of the incentive spirometer Titrate down the FiO2 as tolerated Continue SCDs for DVT prophylaxis Remains on Pepcid for GI prophylaxis Remains n.p.o. with nasogastric tube in place Increase her activity as tolerated We will continue to follow I have personally seen and examined the patient, performed the documentation and the assessment and plan as written. Number of minutes spent on the visit: 10 Dictation was produced using [employer] software. Please excuse any grammatical, word or spelling errors.
[2024-06-09 15:58] VITALS: BMI 34.9
--- NOTE | 2024-06-09 16:35 | P.PN ---
Subjective Progress Note Date: 06/09/24 Reason for Consult Consult date: 06/03/24 Medical management - Chief Complaint Status post colectomy - History of Present Illness Patient is a 69-year-old female with recently diagnosed colon mass was admitted to hospital for elective colectomy and splenectomy. Patient had CT of the abdomen pelvis on 05/05/2024 showed descending colon eccentric wall thickening extending up to 9.8 cm concerning for malignancy until proven otherwise. Colonoscopy recommended. No mesenteric lymph nodes identified at this time. No liver masses definitely visualized. Patient had colonoscopy done on 05/19/2024 showed colon mass at 50 cm. Patient is status post surgery. He is complaining of pain and is fairly controlled with pain management. No complaints of chest pain or shortness of breath. No nausea or vomiting. Has not passed flatus. No fever no chills. Laboratory data showed WBC 25.5 hemoglobin 7.6 and platelets 368 Sodium 133 potassium 4.0 chloride 101 bicarb is 28 BUN 15 and creatinine 0.53 and blood sugar 132 Urinalysis is negative for infection. 06/04/2024 Patient is seen in follow-up today status post colectomy with general surgery. Patient is reporting continued nausea with some vomiting and some shortness of breath. Patient is continued on nasal cannula and reports does not wear oxygen outpatient. Will obtain a chest x-ray. White count is elevated and patient denies any bowel activity as of yet. 06/05/2024 Patient is seen in follow-up today and nausea has improved after NG tube placement. Continue on n.p.o. for now per surgery. Encouraged increase activity as tolerated with more frequent walking and getting up off the bed. Patient continues to have significant abdominal pain in the abdomen when moving although patient was able to get up to the chair. Recommend discontinuing Mora catheter and monitoring for voiding issues. No bowel activity as of yet and bowel sounds are currently absent. Possible postop ileus. Patient denies chest pain or palpitations. Patient continues on oxygen via nasal cannula and does not normally wear recommend wean FiO2 as tolerated. 06/06/2024 Patient is seen in follow-up this morning continues with NG tube and n.p.o. Patient maintained on IV hydration and will decrease the dose slightly as patient was continuing to require oxygen. Encouraged incentive spirometer use and weaning oxygen as tolerated. Patient does not wear oxygen outpatient. Likely a component of volume overload. Patient has been extremely weak and difficulty getting up although has been able to do so and Mora catheter removed. Patient is voiding and reports no bowel movement as of yet. Encouraged increase activity as tolerated and getting up and sitting in the chair along with walking more frequently. Patient is afebrile and white count is trending down and hemoglobin is stable above 8. No active bleeding noted. 06/07. Patient seen and examined. Still has NG tube in place. Patient is not passing any gas or bowel movement 06/08. Patient seen and examined. Patient desaturated overnight, had to be placed on oxygen. Will order chest x-ray and pulmonary consult 06/09/2024 Patient is seen in follow-up with general surgery is attending and pulmonary following. Patient is maintained on 2 to 3 L via nasal cannula does not normally require oxygen outpatient. Patient continues with NG tube with significant amount of output noted and denies passing flatus and has not had a bowel movement. Patient is n.p.o. and will continue per surgery. Patient reports is persistent on going home tomorrow and discussed with patient and family at the bedside there are no plans for discharge as of yet. Patient would need to discuss further with general surgery regarding her discharge planning. Patient has been encouraged to increase activity as tolerated and get up more frequently work with physical therapy daily and sit up in the chair more often. White count remains elevated at 20.59 and platelets are 670, hemoglobin is 7.6 and there is no active bleeding noted. Patient is status post splenectomy and patient remains afebrile. Chest x-ray from yesterday showing no acute cardiopulmonary process. Strongly encouraged incentive spirometer use at least 10 times every hour while awake if not more. Review of systems: Constitutional: No reports of fatigue, fever, or chills Cardiovascular: No reports of chest pain or palpitations Respiratory: reports of intermittent shortness of breath with exertion GI: No further reports of nausea, no vomiting, reports no gas and no bowel movement as of yet, nausea and vomiting has improved post NG tube placement : No reports of dysuria or retention, voiding with no difficulties Neurovascular: reports of generalized weakness and pain with movement in the abdomen on bilateral lower left and right quadrants All medications have been reviewed PHYSICAL EXAMINATION: Patient is sitting up in the chair, , awake alert and oriented x 3.. Appears elderly, obese, well-developed HEENT: Normocephalic. Neck is supple. Pupils reactive. Nostrils clear. Oral cavity is moist. Neck reveals no JVD, carotid bruits, or thyromegaly. CHEST EXAMINATION: Trachea is central. Symmetrical expansion. Bibasilar d iminished sounds otherwise lung [place] clear to auscultation and percussion. CARDIAC: Normal S1, S2 with no gallops. No murmurs, sinus tach ABDOMEN: Soft. Bowel sounds diminished. Surgical site bandaged.. Tender on palpation no organomegaly. No abdominal bruits. Extremities: reveal no edema. No clubbing or cyanosis Neurologically awake, alert, oriented x3 with well-coordinated movements. No focal deficits noted Skin: No rash or skin lesions. Psychiatric: Cooperative. Non-suicidal Musculoskeletal: No joint swelling or deformity. Normal range of motion. Assessment: Status post left colectomy and splenectomy. 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 Hemoglobin was less than 7 and improved status post unit of PRBC, no active bleeding noted Leukocytosis likely reactive. Status post splenectomy, trending down Acute hypoxic respiratory failure secondary to atelectasis. As well as possible volume overload, wean FiO2 as tolerated Obesity with a BMI 34.9 GI and DVT prophylaxis as per primary team Full code Plan: Patient will be continued on pain management with IV Tylenol and IV Dilaudid and encourage incentive spirometry. Monitor H&H and CBC closely. Hemoglobin is improved over 8 status post a unit of PRBC. Follow-up on repeat labs. No active bleeding noted urinalysis is negative for infection. Continue with IV hydration while patient n.p.o. at a decreased rate. PT OT was consulted and encouraged to increase activity as tolerated with sitting up in the chair more often and frequent walking Patient was reporting some shortness of breath and still on 2 to 3 L nasal cannula and does not normally wear this. Encouraged incentive spirometer use at least 10 times every hour while awake and getting up more frequently and walking and sitting up in the chair, likely a component of volume overload and have decrease the rate of IV infusion. Patient did receive a dose of IV Lasix yesterday with pulmonary following. Patient continues to be n.p.o. with no bowel activity as of yet, patient denies passing gas or having bowel movement. Patient continues at the NG tube. Joseph t reports will be going home tomorrow and discussed with family and patient at bedside and would be at the discretion of surgeon although not quite ready for discharge as of yet. We will continue to follow with general surgery during hospitalization. Thank you kindly for this consultation. The impression and plan of care has been dictated by Shannon Villalobos, Nurse Practitioner as directed. Dr. Morris MD I have performed a history and examination and MDM of this patient, discussed the same with the dictator, and agree with the dictator's assessment and plan as written ,documented as a scribe. Based on total visit time, I have performed more than 50% of the visit. Objective - Vital Signs Vital signs: Vital Signs Temp 99.0 F 06/09/24 13:06 Pulse 97 06/09/24 13:06 Resp 16 06/09/24 13:06 BP 110/72 06/09/24 13:06 Pulse Ox 93 L 06/09/24 13:06 FiO2 Intake & Output 06/08/24 06/09/24 06/09/24 18:59 06:59 18:59 Intake Total 550 Output Total 400 400 Balance -400 150 Weight 83.8 kg Intake: Intake, IV Titration 550 Amount Dextrose 5%-0.45% NaCl 1, 550 000 ml @ 50 mls/hr IV . Q20H [facility] Rx#:[id number] Oral 0 Output: Gastric Drainage 400 400 Other: Voiding Method Bedpan Bedside Commode Diaper # Voids 6 1 1 - Labs CBC & Chem 7: 06/09/24 04:42 06/09/24 04:42 Labs: Abnormal Lab Results - Last 24 Hours (Table) 06/09/24 06/09/24 Range/Units 04:42 04:42 WBC 20.59 H (4.50-10.00) X 10*3/uL RBC 2.73 L (4.10-5.20) X 10*6/uL Hgb 7.6 L (12.0-15.0) g/dL Hct 24.1 L (37.2-46.3) % MCHC 31.5 L (32.0-37.0) g/dL RDW 16.0 H (11.5-14.5) % Plt Count 670 H (140-440) X 10*3/uL Immature Gran # 0.36 H (0.00-0.04) X 10*3/uL Neutrophils # 15.16 H (1.80-7.70) X 10*3/uL Monocytes # 1.84 H (0.20-1.00) X 10*3/uL NRBC/100 WBC Diff 0.12 H (0.00-0.01) X 10*3/uL Potassium 3.4 L (3.5-5.5) mmol/L BUN 6.6 L (9.0-27.0) mg/dL Creatinine 0.4 L (0.6-1.5) mg/dL Calcium 8.1 L (8.7-10.3) mg/dL
[2024-06-10 10:03] LABS: HCT 25.2 % (37.2-46.3); HGB 7.9 g/dL (12.0-15.0); MCH 27.9 pg (27.0-32.0); MCHC 31.3 g/dL (32.0-37.0); Mean Platelet Volume 9.5 FL (9.5-12.2); NRBC Per 100 WBC 0.07 X 10*3/uL (0.00-0.01); Platelet Count 764 X 10*3/uL (140-440); RBC 2.83 X 10*6/uL (4.10-5.20); WBC 20.88 X 10*3/uL (4.50-10.00)
[2024-06-10 10:04] LABS: Basophils # (A) 0.06 X 10*3/uL (0.00-0.10); Basophils % (A) 0.3 %; Eosinophils # (A) 0.21 X 10*3/uL (0.04-0.35); Lymphocytes # (A) 3.49 X 10*3/uL (0.90-5.00); Lymphocytes % (A) 16.7 %; Monocytes # (A) 2.11 X 10*3/uL (0.20-1.00); Monocytes % (A) 10.1 %; Neutrophils % (A) 70.4 %
--- NOTE | 2024-06-10 11:45 | P.PN ---
Subjective Progress Note Date: 06/10/24 This is a 69-year-old female patient, I was asked to consult on this patient because of hypoxemia the patient is currently on 2 L of oxygen by nasal cannula. In summary, the patient is a case of a recently diagnosed colon mass and the patient was admitted to the hospital for an elective colectomy and splenectomy. The patient had a CAT scan of the abdomen pelvis that was done on 05/05/2024 showed descending colon mass that was quite suspicious for malignancy. Colonoscopy on 05/19/2024 showed a colonic mass and the level of 50 cm from the anal verge and the patient underwent a left colectomy and splenectomy on 06/02/2024. Postop, the patient was being followed up by the medical group and general surgery. She was encountering some nausea for which an NG tube was inserted and the patient was kept NPO. The patient was being hydrated with IV fluids. She remained afebrile and she demonstrated no evidence of any bleeding. Overnight, the patient desaturated and the patient was placed on 2 L of oxygen by nasal cannula. The white cell count is at 19.2 which is stable/improved and the patient's hemoglobin also has dropped down to 7.7 with a platelet count of 629 and the patient has a BUN of 3 with a creatinine of 0.4 and sodium levels at 136. Chest x-ray was done and showed NG tube being in good location. No acute cardiopulmonary process. Some minor atelectatic changes in the left lung base which are essentially improving. The patient is currently on D5 half-normal saline at rate of 50 cc an hour. The patient is on Zofran, Reglan and Dilaudid for pain control. The patient remains on Pepcid. No hemoptysis. No pleurisy. No reported aspiration. The surgical pathology was consistent with invasive moderate differentiated chronic adenocarcinoma with negative marginsAnd there w as no omental involvement. The spleen was negative for carcinoma. Tumor size was 8 cm in size and the lymph nodes were also negative. The patient is seen today June 09, 2024 in follow-up on the regular medical floor. She is currently sitting up in bed. Awake and alert in no acute distress. Maintaining O2 saturations in the 90s on 2 L/min per nasal cannula. Chest x-ray had revealed evidence of atelectasis. She is encouraged regarding the increased use of the incentive spirometer. She has D5 and a half normal saline at 50 mL/h. Nasogastric tube remains in place. White count 20.5. Hemoglobin 7.6. Platelets 670. Sodium 136. Potassium 3.4. Bicarb 27. BUN 7. Creatinine 0.4. Glucose 101. The patient is seen today June 10, 2024 in follow-up on the regular medical floor. She is currently resting comfortably in bed. Awake and alert in no acute distress. Maintaining good O2 saturations in the 90s on 2 L/min per nasal cannula. Encouraged the increased use of the incentive spirometer. She remains afebrile. Hemodynamically stable. White count 20.8. Hemoglobin 7.9. Platelets 764. Nasogastric tube remains in place. She is status post 1 unit of packed red blood cells this admission. She remains on D5 and half-normal saline at 50 mL/h. Objective - Vital Signs Vital signs: Vital Signs Temp 99.0 F 06/10/24 07:25 Pulse 97 06/10/24 07:25 Resp 16 06/10/24 07:25 BP 130/80 06/10/24 07:25 Pulse Ox 94 L 06/10/24 07:25 FiO2 Intake & Output 06/09/24 06/10/24 06/10/24 18:59 06:59 18:59 Intake Total 1000 Output Total 600 Balance -600 1000 Weight 83.8 kg Intake: Intake, IV Titration 1000 Amount Dextrose 5%-0.45% NaCl 1, 600 000 ml @ 50 mls/hr IV . Q20H [facility] Rx#:[id number] Potassium Chloride 10 meq 400 In Water For Injection 1 100ml.bag @ 100 mls/hr IVPB Q1HR [facility] Rx#: [id number] Output: Gastric Drainage 600 Other: Voiding Method Bedside Commode Bedside Commode Bedpan Diaper # Voids 1 3 1 - Exam GENERAL EXAM: Alert, 69-year-old female, on 2 L nasal cannula, in no apparent distress. HEAD: Normocephalic. EYES: Normal reaction of pupils, equal size. NOSE: Clear with pink turbinates. Nasogastric tube remains in place. THROAT: No erythema or exudates. NECK: No masses, no JVD. CHEST: No chest wall deformity. LUNGS: Equal air entry with no crackles, wheeze, rhonchi or dullness. CVS: S1 and S2 normal with no audible murmur, regular rhythm. ABDOMEN: Abdominal binder in place. Dressing dry and intact. Normal bowel sounds, no guarding or rigidity. SPINE: No scoliosis or deformity SKIN: No rashes CENTRAL NERVOUS SYSTEM: No focal deficits, tone is normal in all 4 extremities. EXTREMITIES: SCDs in place. There is no peripheral edema. No clubbing, no cyanosis. Peripheral pulses are intact. - Labs CBC & Chem 7: 06/10/24 04:20 06/09/24 04:42 Labs: Abnormal Lab Results - Last 24 Hours (Table) 06/10/24 Range/Units 04:20 WBC 20.88 H (4.50-10.00) X 10*3/uL RBC 2.83 L (4.10-5.20) X 10*6/uL Hgb 7.9 L (12.0-15.0) g/dL Hct 25.2 L (37.2-46.3) % MCHC 31.3 L (32.0-37.0) g/dL RDW 16.0 H (11.5-14.5) % Plt Count 764 H (140-440) X 10*3/uL Immature Gran # 0.31 H (0.00-0.04) X 10*3/uL Neutrophils # 14.70 H (1.80-7.70) X 10*3/uL Monocytes # 2.11 H (0.20-1.00) X 10*3/uL NRBC/100 WBC Diff 0.07 H (0.00-0.01) X 10*3/uL Assessment and Plan Assessment: Acute hypoxic respiratory failure, secondary to postop atelectatic changes. No evidence of pneumonia. No reported aspiration. Patient remains NPO. Continues to receive gastric decompression with NG tube. Currently on 2 L of oxygen by nasal cannula Adenocarcinoma of colonic mass and the patient underwent a left colectomy and splenectomy on June 02, 2024. The patient remains n.p.o. Blood loss anemia and postop, the patient dropped her hemoglobin down to 6.9, requiring a unit of packed RBC and the most recent hemoglobin is at 7.9 Leukocytosis, likely reactive postsplenectomy Obesity with a BMI of 34.9 Plan: The patient was seen and evaluated Labs and medications reviewed Encourage increased use of the incentive spirometer Titrate down/off the FiO2 as tolerated Remains n.p.o. with nasogastric tube in place Increase her activity as tolerated We will continue to follow I have personally seen and examined the patient, performed the documentation and the assessment and plan as written. Number of minutes spent on the visit: 10 Dictation was produced using [employer] dictation software. Please excuse any grammatical, word or spelling errors.
[2024-06-10 12:00] LABS: INR 1.1 (<1.2); Prothrombin Time 12.2 sec (10.0-12.5)
[2024-06-10 12:13] LABS: Blood Urea Nitrogen 6.7 mg/dL (9.0-27.0); Calcium 8.1 mg/dL (8.7-10.3); Carbon Dioxide 25.8 mmol/L (21.6-31.8); Chloride 100 mmol/L (96-109); Glucose 98 mg/dL (70-110); Potassium 3.7 mmol/L (3.5-5.5); Sodium 138 mmol/L (135-145)
--- NOTE | 2024-06-10 12:16 | P.PN ---
Subjective Progress Note Date: 06/10/24 SURGICAL PROGRESS NOTE CHIEF COMPLAINT: Colon mass HISTORY OF PRESENT ILLNESS: Patient is postop day #7 status post left colectomy and splenectomy. Patient continues to have NG tube in place. Patient with 600 mL output through NG tube. Still no bowel activity. Afebrile. Tachycardia improved. She does complain of left lower quadrant pain. WBC 20.8 hemoglobin stable at 7.9 potassium improved from 3.4-3.7 PHYSICAL EXAM: VITAL SIGNS: Reviewed. GENERAL: Well-developed in no acute distress. ABDOMEN: Soft. Nondistended. Tenderness left lower quadrant. Incisional dressing clean dry and intact. Abdominal binder in place. NEUROLOGIC: Alert and oriented. Cranial nerves II through XII grossly intact. ASSESSMENT: 1. Left colon mass invading into the retroperitoneum status post left colect nahid. 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 Anemia possible acute blood loss anemia from surgery 3. Leukocytosis reactive from splenectomy 4. Possible postoperative ileus can be an expected finding PLAN: -Dr. Main did review pathology results with patient -Consult interventional radiology for PICC line placement for TPN -Consult dietitian to start TPN -Continue NG tube for decompression -Keep patient n.p.o. -Continue pain management -Continue Reglan -Encourage patient to ambulate -Continue IV fluids -Encourage patient to use incentive spirometer -GI prophylaxis Pepcid and DVT prophylaxis SCDs Physician Medicare Coordinator note has been reviewed by physician. Signing provider agrees with the documented findings, assessment, and plan of care. Objective - Vital Signs Vital signs: Vital Signs Temp 99.0 F 06/10/24 07:25 Pulse 97 06/10/24 07:25 Resp 16 06/10/24 07:25 BP 130/80 06/10/24 07:25 Pulse Ox 94 L 06/10/24 07:25 FiO2 Intake & Output 06/09/24 06/10/24 06/10/24 18:59 06:59 18:59 Intake Total 1000 Output Total 600 Balance -600 1000 Weight 83.8 kg Intake: Intake, IV Titration 1000 Amount Dextrose 5%-0.45% NaCl 1, 600 000 ml @ 50 mls/hr IV . Q20H [facility] Rx#:[id number] Potassium Chloride 10 meq 400 In Water For Injection 1 100ml.bag @ 100 mls/hr IVPB Q1HR [facility] Rx#: [id number] Output: Gastric Drainage 600 Other: Voiding Method Bedside Commode Bedside Commode Bedpan Diaper # Voids 1 3 1 - Labs CBC & Chem 7: 06/10/24 04:20 06/09/24 04:42 Labs: Abnormal Lab Results - Last 24 Hours (Table) 06/10/24 Range/Units 04:20 WBC 20.88 H (4.50-10.00) X 10*3/uL RBC 2.83 L (4.10-5.20) X 10*6/uL Hgb 7.9 L (12.0-15.0) g/dL Hct 25.2 L (37.2-46.3) % MCHC 31.3 L (32.0-37.0) g/dL RDW 16.0 H (11.5-14.5) % Plt Count 764 H (140-440) X 10*3/uL Immature Gran # 0.31 H (0.00-0.04) X 10*3/uL Neutrophils # 14.70 H (1.80-7.70) X 10*3/uL Monocytes # 2.11 H (0.20-1.00) X 10*3/uL NRBC/100 WBC Diff 0.07 H (0.00-0.01) X 10*3/uL
[2024-06-10 15:20] LABS: Albumin 2.5 g/dL (3.5-5.0); Magnesium 1.9 mg/dL (1.6-2.3); Phosphorus 3.3 mg/dL (2.5-4.5)
[2024-06-10] MEDS: [UNRECOGNIZED DRUG - REMARK] IV SCH (16:35)
--- NOTE | 2024-06-11 05:42 | P.PN ---
Subjective Progress Note Date: 06/10/24 Reason for Consult Consult date: 06/03/24 Medical management - Chief Complaint Status post colectomy - History of Present Illness Patient is a 69-year-old female with recently diagnosed colon mass was admitted to hospital for elective colectomy and splenectomy. Patient had CT of the abdomen pelvis on 05/05/2024 showed descending colon eccentric wall thickening extending up to 9.8 cm concerning for malignancy until proven otherwise. Colonoscopy recommended. No mesenteric lymph nodes identified at this time. No liver masses definitely visualized. Patient had colonoscopy done on 05/19/2024 showed colon mass at 50 cm. Patient is status post surgery. He is complaining of pain and is fairly controlled with pain management. No complaints of chest pain or shortness of breath. No nausea or vomiting. Has not passed flatus. No fever no chills. Laboratory data showed WBC 25.5 hemoglobin 7.6 and platelets 368 Sodium 133 potassium 4.0 chloride 101 bicarb is 28 BUN 15 and creatinine 0.53 and blood sugar 132 Urinalysis is negative for infection. 06/04/2024 Patient is seen in follow-up today status post colectomy with general surgery. Patient is reporting continued nausea with some vomiting and some shortness of breath. Patient is continued on nasal cannula and reports does not wear oxygen outpatient. Will obtain a chest x-ray. White count is elevated and patient denies any bowel activity as of yet. 06/05/2024 Patient is seen in follow-up today and nausea has improved after NG tube placement. Continue on n.p.o. for now per surgery. Encouraged increase activity as tolerated with more frequent walking and getting up off the bed. Patient continues to have significant abdominal pain in the abdomen when moving although patient was able to get up to the chair. Recommend discontinuing Mora catheter and monitoring for voiding issues. No bowel activity as of yet and bowel sounds are currently absent. Possible postop ileus. Patient denies chest pain or palpitations. Patient continues on oxygen via nasal cannula and does not normally wear recommend wean FiO2 as tolerated. 06/06/2024 Patient is seen in follow-up this morning continues with NG tube and n.p.o. Patient maintained on IV hydration and will decrease the dose slightly as patient was continuing to require oxygen. Encouraged incentive spirometer use and weaning oxygen as tolerated. Patient does not wear oxygen outpatient. Likely a component of volume overload. Patient has been extremely weak and difficulty getting up although has been able to do so and Mora catheter removed. Patient is voiding and reports no bowel movement as of yet. Encouraged increase activity as tolerated and getting up and sitting in the chair along with walking more frequently. Patient is afebrile and white count is trending down and hemoglobin is stable above 8. No active bleeding noted. 06/07. Patient seen and examined. Still has NG tube in place. Patient is not passing any gas or bowel movement 06/08. Patient seen and examined. Patient desaturated overnight, had to be placed on oxygen. Will order chest x-ray and pulmonary consult 06/09/2024 Patient is seen in follow-up with general surgery is attending and pulmonary following. Patient is maintained on 2 to 3 L via nasal cannula does not normally require oxygen outpatient. Patient continues with NG tube with significant amount of output noted and denies passing flatus and has not had a bowel movement. Patient is n.p.o. and will continue per surgery. Patient reports is persistent on going home tomorrow and discussed with patient and family at the bedside there are no plans for discharge as of yet. Patient would need to discuss further with general surgery regarding her discharge planning. Patient has been encouraged to increase activity as tolerated and get up more frequently work with physical therapy daily and sit up in the chair more often. White count remains elevated at 20.59 and platelets are 670, hemoglobin is 7.6 and there is no active bleeding noted. Patient is status post splenectomy and patient remains afebrile. Chest x-ray from yesterday showing no acute cardiopulmonary process. Strongly encouraged incentive spirometer use at least 10 times every hour while awake if not more. 2023 Patient is seen in follow-up today continues to be n.p.o. with no bowel activity noted. Patient does continue with NG tube with output noted and reports to having some abdominal tenderness although slowly improving. Per surgery patient to receive a PICC line and will be initiating TPN. Patient continues on 2 L via nasal cannula and encouraged the patient to continue using incentive spirometer at least 10 times every hour while awake. Encouraged patient to sit up into the chair and more frequent walking as well. Review of systems: Constitutional: No reports of fatigue, fever, or chills Cardiovascular: No reports of chest pain or palpitations Respiratory: reports of intermittent shortness of breath with exertion GI: No further reports of nausea, no vomiting, reports no gas and no bowel movement as of yet, nausea and vomiting has improved post NG tube placement : No reports of dysuria or retention, voiding with no difficulties Neurovascular: reports of generalized weakness and pain with movement in the abdomen on bilateral lower left and right quadrants All medications have been reviewed PHYSICAL EXAMINATION: Patient is sitting up in the chair, , awake alert and oriented x 3.. Appears elderly, obese, well-developed HEENT: Normocephalic. Neck is supple. Pupils reactive. Nostrils clear. Oral cavity is moist. NG tube noted Neck reveals no JVD, carotid bruits, or thyromegaly. CHEST EXAMINATION: Trachea is central. Symmetrical expansion. Bibasilar diminished sounds otherwise lung [place] clear to auscultation and percussion. CARDIAC: Normal S1, S2 with no gallops. No murmurs, sinus tach ABDOMEN: Soft. Obese. Bowel sounds hypoactive. Surgical site bandaged.. Tender on palpation no organomegaly. No abdominal bruits. Extremities: reveal no edema. No clubbing or cyanosis Neurologically awake, alert, oriented x3 with well-coordinated movements. No focal deficits noted, diffusely weak Skin: No rash or skin lesions. Psychiatric: Cooperative. Non-suicidal Musculoskeletal: No joint swelling or deformity. Normal range of motion. Assessment: Status post left colectomy and splenectomy. 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 Hemoglobin was less than 7 and improved status post unit of PRBC, no active bleeding noted Leukocytosis likely reactive. Status post splenectomy, trending down Acute hypoxic respiratory failure secondary to atelectasis. As well as possible volume overload, wean FiO2 as tolerated Obesity with a BMI 34.9 GI and DVT prophylaxis as per primary team Full code Plan: Patient will be continued on current medications with pulmonary, general surgery following Monitor H&H and CBC closely. Hemoglobin is improved over 7.7 status post a unit of PRBC. Follow-up on repeat labs. No active bleeding noted urinalysis is negative for infection. Continue with IV hydration while patient n.p.o. at a decreased rate. PT OT following and encouraged to increase activity as tolerated with sitting up in the chair more often and frequent walking Patient was reporting some shortness of breath and still on 2 to 3 L nasal cannula and does not normally wear this. Encouraged incentive spirometer use at least 10 times every hour while awake and getting up more frequently and walking and sitting up in the chair, likely a component of volume overload and have decrease the rate of IV infusion. Patient to receive a PICC line with no bowel activity as of yet and is being initiated on TPN per surgery. Dietary on consult Patient continues to be n.p.o. with no bowel activity as of yet, patient denies passing gas or having bowel movement. Patient continues at the NG tube. We will continue to follow with general surgery during hospitalization. Thank you kindly for this consultation. The impression and plan of care has been dictated by Shannon Villalobos, Nurse Practitioner as directed. Dr. Morris MD I have performed a history and examination and MDM of this patient, discussed the same with the dictator, and agree with the dictator's assessment and plan as written ,documented as a scribe. Based on total visit time, I have performed more than 50% of the visit. Objective - Vital Signs Vital signs: Vital Signs Temp 99.3 F 06/11/24 01:25 Pulse 95 06/11/24 01:25 Resp 20 06/11/24 01:25 BP 112/72 06/11/24 01:25 Pulse Ox 96 06/11/24 01:25 FiO2 Intake & Output 06/10/24 06/10/24 06/11/24 06:59 18:59 06:59 Intake Total 1000 Output Total 400 500 Balance 1000 -400 -500 Weight 83.8 kg Intake: Intake, IV Titration 1000 Amount Dextrose 5%-0.45% NaCl 1, 600 000 ml @ 50 mls/hr IV . Q20H G[facility]RIEL Rx#:[id number] Potassium Chloride 10 meq 400 In Water For Injection 1 100ml.bag @ 100 mls/hr IVPB Q1HR G[facility]RIEL Rx#: [id number] Output: Gastric Drainage 400 500 Other: Voiding Method Bedside Commode Bedside Commode Bedpan Bedpan Diaper Diaper # Voids 3 1 - Labs CBC & Chem 7: 06/10/24 04:20 06/10/24 04:20 Labs: Abnormal Lab Results - Last 24 Hours (Table) 06/10/24 06/10/24 06/10/24 Range/Units 04:20 04:20 14:39 WBC 20.88 H (4.50-10.00) X 10*3/uL RBC 2.83 L (4.10-5.20) X 10*6/uL Hgb 7.9 L (12.0-15.0) g/dL Hct 25.2 L (37.2-46.3) % MCHC 31.3 L (32.0-37.0) g/dL RDW 16.0 H (11.5-14.5) % Plt Count 764 H (140-440) X 10*3/uL Immature Gran # 0.31 H (0.00-0.04) X 10*3/uL Neutrophils # 14.70 H (1.80-7.70) X 10*3/uL Monocytes # 2.11 H (0.20-1.00) X 10*3/uL NRBC/100 WBC Diff 0.07 H (0.00-0.01) X 10*3/uL Anion Gap 12.20 H (4.00-12.00) mmol/L BUN 6.7 L (9.0-27.0) mg/dL Creatinine 0.5 L (0.6-1.5) mg/dL Calcium 8.1 L (8.7-10.3) mg/dL Albumin 2.5 L (3.5-5.0) g/dL
[2024-06-11 05:59] LABS: African American GFR (CKD) >90 (>60 ml/min/1.73 sqM); Anion Gap 1 mmol/L; Blood Urea Nitrogen 9 mg/dL (7-17); Calcium 8.1 mg/dL (8.4-10.2); Carbon Dioxide 32 mmol/L (22-30); Chloride 100 mmol/L (98-107); Glucose 116 mg/dL (74-99); Non-African American GFR(CKD) >90 (>60 ml/min/1.73 sqM); Phosphorus 3.4 mg/dL (2.5-4.5); Potassium 3.8 mmol/L (3.5-5.1); Sodium 133 mmol/L (137-145)
[2024-06-11 06:38] LABS: Ionized Calcium 4.7 mg/dL (4.5-5.3)
[2024-06-11 08:37] LABS: Basophils # (A) 0.05 X 10*3/uL (0.00-0.10); Basophils % (A) 0.3 %; Eosinophils # (A) 0.19 X 10*3/uL (0.04-0.35); HGB 7.9 g/dL (12.0-15.0); Lymphocytes # (A) 2.98 X 10*3/uL (0.90-5.00); Lymphocytes % (A) 14.9 %; MCH 28.2 pg (27.0-32.0); MCHC 31.6 g/dL (32.0-37.0); MCV 89.3 FL (80.0-97.0); Mean Platelet Volume 9.4 FL (9.5-12.2); Monocytes # (A) 1.54 X 10*3/uL (0.20-1.00); Monocytes % (A) 7.7 %; NRBC Per 100 WBC 0.04 X 10*3/uL (0.00-0.01); Neutrophils # (A) 14.97 X 10*3/uL (1.80-7.70); Neutrophils % (A) 74.9 %; Platelet Count 788 X 10*3/uL (140-440); RDW 15.9 % (11.5-14.5); WBC 19.96 X 10*3/uL (4.50-10.00)
[2024-06-11 08:43] LABS: Triglycerides 98.4 mg/dL (0.00-149.00)
--- NOTE | 2024-06-11 11:48 | P.PN ---
Subjective Progress Note Date: 06/11/24 This is a 69-year-old female patient, I was asked to consult on this patient because of hypoxemia the patient is currently on 2 L of oxygen by nasal cannula. In summary, the patient is a case of a recently diagnosed colon mass and the patient was admitted to the hospital for an elective colectomy and splenectomy. The patient had a CAT scan of the abdomen pelvis that was done on 05/05/2024 showed descending colon mass that was quite suspicious for malignancy. Colonoscopy on 05/19/2024 showed a colonic mass and the level of 50 cm from the anal verge and the patient underwent a left colectomy and splenectomy on 06/02/2024. Postop, the patient was being followed up by the medical group and general surgery. She was encountering some nausea for which an NG tube was inserted and the patient was kept NPO. The patient was being hydrated with IV fluids. She remained afebrile and she demonstrated no evidence of any bleeding. Overnight, the patient desaturated and the patient was placed on 2 L of oxygen by nasal cannula. The white cell count is at 19.2 which is stable/improved and the patient's hemoglobin also has dropped down to 7.7 with a platelet count of 629 and the patient has a BUN of 3 with a creatinine of 0.4 and sodium levels at 136. Chest x-ray was done and showed NG tube being in good location. No acute cardiopulmonary process. Some minor atelectatic changes in the left lung base which are essentially improving. The patient is currently on D5 half-normal saline at rate of 50 cc an hour. The patient is on Zofran, Reglan and Dilaudid for pain control. The patient remains on Pepcid. No hemoptysis. No pleurisy. No reported aspiration. The surgical pathology was consistent with invasive moderate differentiated chronic adenocarcinoma with negative marginsAnd there w as no omental involvement. The spleen was negative for carcinoma. Tumor size was 8 cm in size and the lymph nodes were also negative. The patient is seen today June 09, 2024 in follow-up on the regular medical floor. She is currently sitting up in bed. Awake and alert in no acute distress. Maintaining O2 saturations in the 90s on 2 L/min per nasal cannula. Chest x-ray had revealed evidence of atelectasis. She is encouraged regarding the increased use of the incentive spirometer. She has D5 and a half normal saline at 50 mL/h. Nasogastric tube remains in place. White count 20.5. Hemoglobin 7.6. Platelets 670. Sodium 136. Potassium 3.4. Bicarb 27. BUN 7. Creatinine 0.4. Glucose 101. The patient is seen today June 10, 2024 in follow-up on the regular medical floor. She is currently resting comfortably in bed. Awake and alert in no acute distress. Maintaining good O2 saturations in the 90s on 2 L/min per nasal cannula. Encouraged the increased use of the incentive spirometer. She remains afebrile. Hemodynamically stable. White count 20.8. Hemoglobin 7.9. Platelets 764. Nasogastric tube remains in place. She is status post 1 unit of packed red blood cells this admission. She remains on D5 and half-normal saline at 50 mL/h. The patient is seen today June 11, 2024 in follow-up on the regular medical floor. She is sitting up in bed. Awake and alert in no acute distress. Denies any worsening shortness of breath, cough or congestion. She is maintaining good O2 saturations in the 90s on 2 L/min per nasal cannula. She is working well wi th the incentive spirometer. She is being nourished with TPN and lipids. She has D5 and half-normal saline at 50 mL/h. Her pain is well-managed. White count 19.9. Hemoglobin 7.9. Platelets 788. Sodium 133. Potassium 3.8. Bicarb 32. BUN 9. Creatinine 0.45. Glucose 116. Objective - Vital Signs Vital signs: Vital Signs Temp 98.1 F 06/11/24 07:49 Pulse 104 H 06/11/24 07:49 Resp 16 06/11/24 07:49 BP 126/69 06/11/24 07:49 Pulse Ox 90 L 06/11/24 07:49 FiO2 Intake & Output 06/10/24 06/11/24 06/11/24 18:59 06:59 18:59 Output Total 400 500 Balance -400 -500 Weight 83.8 kg Output: Gastric Drainage 400 500 Other: Voiding Method Bedside Commode Bedpan Diaper # Voids 1 1 - Exam GENERAL EXAM: Alert, 69-year-old female, sitting up in bed, on 2 L nasal cannula, comfortable in no apparent distress. HEAD: Normocephalic. EYES: Normal reaction of pupils, equal size. NOSE: Clear with pink turbinates. Nasogastric tube remains in place. THROAT: No erythema or exudates. NECK: No masses, no JVD. CHEST: No chest wall deformity. LUNGS: Equal air entry with no crackles, wheeze, rhonchi or dullness. CVS: S1 and S2 normal with no audible murmur, regular rhythm. ABDOMEN: Abdominal binder in place. Dressing dry and intact. Normal bowel sounds, no guarding or rigidity. SPINE: No scoliosis or deformity SKIN: No rashes CENTRAL NERVOUS SYSTEM: No focal deficits, tone is normal in all 4 extremities. EXTREMITIES: SCDs in place. There is no peripheral edema. No clubbing, no cyanosis. Peripheral pulses are intact. - Labs CBC & Chem 7: 06/11/24 05:08 06/11/24 05:08 Labs: Abnormal Lab Results - Last 24 Hours (Table) 06/10/24 06/10/24 06/11/24 Range/Units 04:20 14:39 05:08 WBC (4.50-10.00) X 10*3/uL RBC (4.10-5.20) X 10*6/uL Hgb (12.0-15.0) g/dL Hct (37.2-46.3) % MCHC (32.0-37.0) g/dL RDW (11.5-14.5) % Plt Count (140-440) X 10*3/uL MPV (9.5-12.2) FL Immature Gran # (0.00-0.04) X 10*3/uL Neutrophils # (1.80-7.70) X 10*3/uL Monocytes # (0.20-1.00) X 10*3/uL NRBC/100 WBC Diff (0.00-0.01) X 10*3/uL Sodium 133 L (137-145) mmol/L Carbon Dioxide 32 H (22-30) mmol/L Anion Gap 12.20 H (4.00-12.00) mmol/L BUN 6.7 L (9.0-27.0) mg/dL Creatinine 0.5 L 0.45 L (0.6-1.5) mg/dL Glucose 116 H (74-99) mg/dL Calcium 8.1 L 8.1 L (8.7-10.3) mg/dL Albumin 2.5 L (3.5-5.0) g/dL 06/11/24 Range/Units 05:08 WBC 19.96 H (4.50-10.00) X 10*3/uL RBC 2.80 L (4.10-5.20) X 10*6/uL Hgb 7.9 L (12.0-15.0) g/dL Hct 25.0 L (37.2-46.3) % MCHC 31.6 L (32.0-37.0) g/dL RDW 15.9 H (11.5-14.5) % Plt Count 788 H (140-440) X 10*3/uL MPV 9.4 L (9.5-12.2) FL Immature Gran # 0.23 H (0.00-0.04) X 10*3/uL Neutrophils # 14.97 H (1.80-7.70) X 10*3/uL Monocytes # 1.54 H (0.20-1.00) X 10*3/uL NRBC/100 WBC Diff 0.04 H (0.00-0.01) X 10*3/uL Sodium (137-145) mmol/L Carbon Dioxide (22-30) mmol/L Anion Gap (4.00-12.00) mmol/L BUN (9.0-27.0) mg/dL Creatinine (0.6-1.5) mg/dL Glucose (74-99) mg/dL Calcium (8.7-10.3) mg/dL Albumin (3.5-5.0) g/dL Assessment and Plan Assessment: Acute hypoxic respiratory failure, secondary to postop atelectatic changes. Not an unexpected outcome of surgery. No evidence of pneumonia. No reported aspiration. Currently on 2 L of oxygen by nasal cannula Adenocarcinoma of colonic mass and the patient underwent a left colectomy and splenectomy on June 02, 2024. Remains n.p.o. with nasogastric tube in place. Initiated on TPN and lipids Blood loss anemia and postop, the patient dropped her hemoglobin down to 6.9, requiring a unit of packed RBC and the most recent hemoglobin is at 7.9 Leukocytosis, likely reactive postsplenectomy, trending down Obesity with a BMI of 34.9 Plan: The patient was seen and evaluated Labs and medications reviewed Encourage increased use of the incentive spirometer Titrate down/off the FiO2 as tolerated Remains n.p.o. with nasogastric tube in place PICC line placed Initiated on TPN and lipids Increase her activity as tolerated We will continue to follow I have personally seen and examined the patient, performed the documentation and the assessment and plan as written. Number of minutes spent on the visit: 10 Dictation was produced using [employer] dictation software. Please excuse any grammatical, word or spelling errors.
[2024-06-11] MEDS: IOPAMIDOL CONTRAST (ORAL USE) VIAL PO PRN (12:34)
--- NOTE | 2024-06-11 13:15 | P.PN ---
Subjective Progress Note Date: 06/11/24 SURGICAL PROGRESS NOTE CHIEF COMPLAINT: Colon mass HISTORY OF PRESENT ILLNESS: Patient is postop day #8 status post left colectomy and splenectomy. Patient is still had no bowel activity since surgery. NG tube with 500 mL output. Mildly tachycardic heart rate 104. Afebrile WBC 19 Hgb 7.9 platelets 788 Patient seen and examined with Dr. Main PHYSICAL EXAM: VITAL SIGNS: Reviewed. GENERAL: Well-developed in no acute distress. ABDOMEN: Soft. Nondistended. Tenderness left lower quadrant. Incisional dressing clean dry and intact. Abdominal binder in place. NEUROLOGIC: Alert and oriented. Cranial nerves II through XII grossly intact. ASSESSMENT: 1. Left colon mass invading into the retroperitoneum status post left colectomy. 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 Anemia possible acute blood loss anemia from surgery 3. Leukocytosis reactive from splenectomy 4. Possible postoperative ileus can be an expected finding PLAN: -CT scan abdomen pelvis ordered for evaluation since patient has had no bowel activity since surgery. -Dr. Main did review pathology results with patient -Patient did receive PICC line and started on TPN for nutrition support -Continue NG tube for decompression -Keep patient n.p.o. -Continue pain management -Continue Reglan -Encourage patient to ambulate -Continue IV fluids -Encourage patient to use incentive spirometer -GI prophylaxis Pepcid and DVT prophylaxis SCDs Physician Global Category Manager note has been reviewed by physician. Signing provider agrees with the documented findings, assessment, and plan of care. Objective - Vital Signs Vital signs: Vital Signs Temp 98.1 F 06/11/24 07:49 Pulse 104 H 06/11/24 07:49 Resp 16 06/11/24 07:49 BP 114/67 06/11/24 11:59 Pulse Ox 90 L 06/11/24 07:49 FiO2 Intake & Output 06/10/24 06/11/24 06/11/24 18:59 06:59 18:59 Output Total 400 500 Balance -400 -500 Weight 83.8 kg Output: Gastric Drainage 400 500 Other: Voiding Method Bedside Commode Bedpan Diaper # Voids 1 1 - Labs CBC & Chem 7: 06/11/24 05:08 06/11/24 05:08 Labs: Abnormal Lab Results - Last 24 Hours (Table) 06/10/24 06/10/24 06/11/24 Range/Units 04:20 14:39 05:08 WBC (4.50-10.00) X 10*3/uL RBC (4.10-5.20) X 10*6/uL Hgb (12.0-15.0) g/dL Hct (37.2-46.3) % MCHC (32.0-37.0) g/dL RDW (11.5-14.5) % Plt Count (140-440) X 10*3/uL MPV (9.5-12.2) FL Immature Gran # (0.00-0.04) X 10*3/uL Neutrophils # (1.80-7.70) X 10*3/uL Monocytes # (0.20-1.00) X 10*3/uL NRBC/100 WBC Diff (0.00-0.01) X 10*3/uL Sodium 133 L (137-145) mmol/L Carbon Dioxide 32 H (22-30) mmol/L Anion Gap 12.20 H (4.00-12.00) mmol/L BUN 6.7 L (9.0-27.0) mg/dL Creatinine 0.5 L 0.45 L (0.6-1.5) mg/dL Glucose 116 H (74-99) mg/dL Calcium 8.1 L 8.1 L (8.7-10.3) mg/dL Albumin 2.5 L (3.5-5.0) g/dL 06/11/24 Range/Units 05:08 WBC 19.96 H (4.50-10.00) X 10*3/uL RBC 2.80 L (4.10-5.20) X 10*6/uL Hgb 7.9 L (12.0-15.0) g/dL Hct 25.0 L (37.2-46.3) % MCHC 31.6 L (32.0-37.0) g/dL RDW 15.9 H (11.5-14.5) % Plt Count 788 H (140-440) X 10*3/uL MPV 9.4 L (9.5-12.2) FL Immature Gran # 0.23 H (0.00-0.04) X 10*3/uL Neutrophils # 14.97 H (1.80-7.70) X 10*3/uL Monocytes # 1.54 H (0.20-1.00) X 10*3/uL NRBC/100 WBC Diff 0.04 H (0.00-0.01) X 10*3/uL Sodium (137-145) mmol/L Carbon Dioxide (22-30) mmol/L Anion Gap (4.00-12.00) mmol/L BUN (9.0-27.0) mg/dL Creatinine (0.6-1.5) mg/dL Glucose (74-99) mg/dL Calcium (8.7-10.3) mg/dL Albumin (3.5-5.0) g/dL
[2024-06-11] MEDS: FAT EMULSION 20% 250 ML IV SCH (13:28)
--- NOTE | 2024-06-11 14:35 | CT ---
EXAMINATION TYPE: CT abdomen pelvis wo con CT DLP: 712.7 mGycm, Automated exposure control for dose reduction was used. DATE OF EXAM: 06/11/2024 2:17 PM COMPARISON: CT abdomen pelvis 05/05/2024 CLINICAL INDICATION:Female, 69 years old with history of Abdominal pain; vomiting/ pain TECHNIQUE: Standard CT of the abdomen and pelvis following the administration of oral contrast. Cor onal and sagittal reformats were performed. FINDINGS: Limited evaluation due to lack of intravenous contrast. LOWER CHEST: Small left pleural effusion with bilateral lower lobe subsegmental atelectasis. ABDOMEN LIVER: Diffusely hypoattenuating parenchyma consistent with fatty infiltration. GALLBLADDER AND BILE DUCTS: Unremarkable noncontrast appearance. PANCREAS: Unremarkable noncontrast appearance. SPLEEN: Surgically absent. ADRENAL GLANDS: Unremarkable noncontrast appearance.. KIDNEYS AND URETERS: No evidence of hydronephrosis or renal calculus. PELVIS BLADDER: There is a nondependent focus of gas within the urinary bladder likely from prior catheter p lacement. REPRODUCTIVE: Unremarkable. ABDOMEN & PELVIS STOMACH AND BOWEL: Enteric tube terminates within the stomach in appropriate position.Enteric contras t reaches the hepatic flexure. Postsurgical changes from left hemicolectomy with oversewn anastomosis . No extravasation of contrast identified. There is some jejunal small bowel wall thickening in the s plenectomy region. No pneumatosis. Redundant sigmoid colon. No evidence of bowel obstruction. Gas is identified coursing past the anastomotic site into the rectum. PERITONEUM: No evidence of pneumoperitoneum. Scattered regions of stranding within the mesentery from postsurgical change. Anterior right lower quadrant fluid collection measuring 5.8 x 2.6 cm (series 3 , image 70). Anterior left lower quadrant 2.6 x 2.2 cm fluid collection (series 3, image 70). No inte rnal gas. Additional 4.8 x 2.6 cm fluid collection within the left paracolic gutter at the surgical s ite (series 3, image 42). There is small bowel abutting this region. VASCULATURE: Mild atherosclerotic calcifications are present throughout the abdominal aorta and its b ranches. No evidence of aortic aneurysm. MUSCULOSKELETAL: No acute osseous abnormalities. Multilevel degenerative disc disease. Minimal grade 1 anterolisthesis at L4-L5 without evidence of pars defects. LYMPH NODES: No gross evidence for lymphadenopathy. SOFT TISSUE/ABDOMINAL WALL: Postsurgical changes in the midline anterior abdominal wall with skin sta ples in linear opacities. No organized fluid collection. IMPRESSION: 1. Postsurgical changes from left hemicolectomy without evidence for obstruction. Eccentric tube. Fe w fluid collections identified within the anterior lower abdomen and left paracolic gutter concerning for possible abscesses. 2. Jejunal wall thickening within the left upper quadrant. Could represent postsurgical change with other etiologies such as infectious/inflammatory process not excluded. Ischemia is not excluded. 3. Small left pleural effusion with bilateral lower lobe subsegmental atelectasis. [facility], , 06/11/2024 2:33 PM
[2024-06-11] MEDS: POTASSIUM PHOSPHATE IV SCH (17:10)
[2024-06-11] MEDS: PARENTERAL ELECTROLYTES IV SCH (17:10)
[2024-06-11] MEDS: [UNRECOGNIZED DRUG - OTHER] IV SCH (17:10)
--- NOTE | 2024-06-12 06:12 | P.PN ---
Subjective Progress Note Date: 06/11/24 Reason for Consult Consult date: 06/03/24 Medical management - Chief Complaint Status post colectomy - History of Present Illness Patient is a 69-year-old female with recently diagnosed colon mass was admitted to hospital for elective colectomy and splenectomy. Patient had CT of the abdomen pelvis on 05/05/2024 showed descending colon eccentric wall thickening extending up to 9.8 cm concerning for malignancy until proven otherwise. Colonoscopy recommended. No mesenteric lymph nodes identified at this time. No liver masses definitely visualized. Patient had colonoscopy done on 05/19/2024 showed colon mass at 50 cm. Patient is status post surgery. He is complaining of pain and is fairly controlled with pain management. No complaints of chest pain or shortness of breath. No nausea or vomiting. Has not passed flatus. No fever no chills. Laboratory data showed WBC 25.5 hemoglobin 7.6 and platelets 368 Sodium 133 potassium 4.0 chloride 101 bicarb is 28 BUN 15 and creatinine 0.53 and blood sugar 132 Urinalysis is negative for infection. 06/04/2024 Patient is seen in follow-up today status post colectomy with general surgery. Patient is reporting continued nausea with some vomiting and some shortness of breath. Patient is continued on nasal cannula and reports does not wear oxygen outpatient. Will obtain a chest x-ray. White count is elevated and patient denies any bowel activity as of yet. 06/05/2024 Patient is seen in follow-up today and nausea has improved after NG tube placement. Continue on n.p.o. for now per surgery. Encouraged increase activity as tolerated with more frequent walking and getting up off the bed. Patient continues to have significant abdominal pain in the abdomen when moving although patient was able to get up to the chair. Recommend discontinuing Mora catheter and monitoring for voiding issues. No bowel activity as of yet and bowel sounds are currently absent. Possible postop ileus. Patient denies chest pain or palpitations. Patient continues on oxygen via nasal cannula and does not normally wear recommend wean FiO2 as tolerated. 06/06/2024 Patient is seen in follow-up this morning continues with NG tube and n.p.o. Patient maintained on IV hydration and will decrease the dose slightly as patient was continuing to require oxygen. Encouraged incentive spirometer use and weaning oxygen as tolerated. Patient does not wear oxygen outpatient. Likely a component of volume overload. Patient has been extremely weak and difficulty getting up although has been able to do so and Mora catheter removed. Patient is voiding and reports no bowel movement as of yet. Encouraged increase activity as tolerated and getting up and sitting in the chair along with walking more frequently. Patient is afebrile and white count is trending down and hemoglobin is stable above 8. No active bleeding noted. 06/07. Patient seen and examined. Still has NG tube in place. Patient is not passing any gas or bowel movement 06/08. Patient seen and examined. Patient desaturated overnight, had to be placed on oxygen. Will order chest x-ray and pulmonary consult 06/09/2024 Patient is seen in follow-up with general surgery is attending and pulmonary following. Patient is maintained on 2 to 3 L via nasal cannula does not normally require oxygen outpatient. Patient continues with NG tube with significant amount of output noted and denies passing flatus and has not had a bowel movement. Patient is n.p.o. and will continue per surgery. Patient reports is persistent on going home tomorrow and discussed with patient and family at the bedside there are no plans for discharge as of yet. Patient would need to discuss further with general surgery regarding her discharge planning. Patient has been encouraged to increase activity as tolerated and get up more frequently work with physical therapy daily and sit up in the chair more often. White count remains elevated at 20.59 and platelets are 670, hemoglobin is 7.6 and there is no active bleeding noted. Patient is status post splenectomy and patient remains afebrile. Chest x-ray from yesterday showing no acute cardiopulmonary process. Strongly encouraged incentive spirometer use at least 10 times every hour while awake if not more. 06/10/2024 Patient is seen in follow-up today continues to be n.p.o. with no bowel activity noted. Patient does continue with NG tube with output noted and reports to having some abdominal tenderness although slowly improving. Per surgery patient to receive a PICC line and will be initiating TPN. Patient continues on 2 L via nasal cannula and encouraged the patient to continue using incentive spirometer at least 10 times every hour while awake. Encouraged patient to sit up into the chair and more frequent walking as well. 06/11/2024 Patient is seen in follow-up today continues with an NG tube maintained on TPN and tolerating thus far. Patient reports she is continuing to use her incentive spirometer although remains on 2 L via nasal cannula. Encouraged increased activity as tolerated with more walking and weaning FiO2. Patient reports of dizziness earlier today for an episode when trying to get up. Patient reports that was shortly after IV pain medication was administered. Will obtain orthostatics. Review of systems: Constitutional: No reports of fatigue, fever, or chills Cardiovascular: No reports of chest pain or palpitations Respiratory: reports of intermittent shortness of breath with exertion GI: No further reports of nausea, no vomiting, reports no gas and no bowel movement as of yet, no further nausea and vomiting, continues with NG tube : No reports of dysuria or retention, voiding with no difficulties Neurovascular: reports of generalized weakness and pain with movement in the abdomen on bilateral lower left and right quadrants All medications have been reviewed PHYSICAL EXAMINATION: Patient is sitting up in the chair, , awake alert and oriented x 3.. Appears elderly, obese, well-developed HEENT: Normocephalic. Neck is supple. Pupils reactive. Nostrils clear. Oral cavity is moist. NG tube noted Neck reveals no JVD, carotid bruits, or thyromegaly. CHEST EXAMINATION: Trachea is central. Symmetrical expansion. Bibasilar diminished sounds otherwise lung [place] clear to auscultation and percussion. CARDIAC: Normal S1, S2 with no gallops. No murmurs, sinus tach ABDOMEN: Soft. Obese. Bowel sounds hypoactive. Surgical site bandaged.. Tender on palpation no organomegaly. No abdominal bruits. Extremities: reveal no edema. No clubbing or cyanosis Neurologically awake, alert, oriented x3 with well-coordinated movements. No focal deficits noted, diffusely weak Skin: No rash or skin lesions. Psychiatric: Cooperative. Non-suicidal Musculoskeletal: No joint swelling or deformity. Normal range of motion. Assessment: Status post left colectomy and splenectomy. 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 Hemoglobin was less than 7 and improved status post unit of PRBC, no active bleeding noted Leukocytosis likely reactive. Status post splenectomy, trending down Acute hypoxic respiratory failure secondary to atelectasis. As well as possible volume overload, wean FiO2 as tolerated Obesity with a BMI 34.9 GI and DVT prophylaxis as per primary team Full code Plan: Patient will be continued on current medications with pulmonary, general surgery following Monitor H&H and CBC closely. Hemoglobin is stable over 7 status post a unit of PRBC. Follow-up on repeat labs. No active bleeding noted urinalysis is negative for infection. Continue with IV hydration while patient n.p.o. at a decreased rate. Monitor overall fluid intake as patient is now on TPN PT OT following and encouraged to increase activity as tolerated with sitting up in the chair more often and frequent walking Encouraged incentive spirometer use at least 10 times every hour while awake and getting up more frequently and walking and sitting up in the chair, likely a component of volume overload and have decrease the rate of IV infusion. Patient has received a PICC line and TPN has been initiated. Patient continues with no bowel activity as of yet. Dietary on consult Patient continues to be n.p.o. with no bowel activity as of yet, patient denies passing gas or having bowel movement. Patient continues with the NG tube. We will continue to follow with general surgery during hospitalization. Thank you kindly for this consultation. The impression and plan of care has been dictated by Shannon Villalobos, Nurse Practitioner as directed. Dr. Morris MD I have performed a history and examination and MDM of this patient, discussed the same with the dictator, and agree with the dictator's assessment and plan as written ,documented as a scribe. Based on total visit time, I have performed more than 50% of the visit. Objective - Vital Signs Vital signs: Vital Signs Temp 98.1 F 06/11/24 07:49 Pulse 104 H 06/11/24 07:49 Resp 16 06/11/24 07:49 BP 114/67 06/11/24 11:59 Pulse Ox 90 L 06/11/24 07:49 FiO2 Intake & Output 06/10/24 06/11/24 06/11/24 18:59 06:59 18:59 Output Total 400 500 Balance -400 -500 Weight 83.8 kg Output: Gastric Drainage 400 500 Other: Voiding Method Bedside Commode Bedpan Diaper # Voids 1 1 - Labs CBC & Chem 7: 06/11/24 05:08 06/11/24 05:08 Labs: Abnormal Lab Results - Last 24 Hours (Table) 06/10/24 06/11/24 06/11/24 Range/Units 14:39 05:08 05:08 WBC 19.96 H (4.50-10.00) X 10*3/uL RBC 2.80 L (4.10-5.20) X 10*6/uL Hgb 7.9 L (12.0-15.0) g/dL Hct 25.0 L (37.2-46.3) % MCHC 31.6 L (32.0-37.0) g/dL RDW 15.9 H (11.5-14.5) % Plt Count 788 H (140-440) X 10*3/uL MPV 9.4 L (9.5-12.2) FL Immature Gran # 0.23 H (0.00-0.04) X 10*3/uL Neutrophils # 14.97 H (1.80-7.70) X 10*3/uL Monocytes # 1.54 H (0.20-1.00) X 10*3/uL NRBC/100 WBC Diff 0.04 H (0.00-0.01) X 10*3/uL Sodium 133 L (137-145) mmol/L Carbon Dioxide 32 H (22-30) mmol/L Creatinine 0.45 L (0.52-1.04) mg/dL Glucose 116 H (74-99) mg/dL Calcium 8.1 L (8.4-10.2) mg/dL Albumin 2.5 L (3.5-5.0) g/dL
[2024-06-12 06:36] LABS: African American GFR (CKD) >90 (>60 ml/min/1.73 sqM); Anion Gap 5 mmol/L; Blood Urea Nitrogen 12 mg/dL (7-17); Calcium 8.1 mg/dL (8.4-10.2); Carbon Dioxide 29 mmol/L (22-30); Chloride 100 mmol/L (98-107); Glucose 113 mg/dL (74-99); Magnesium 1.9 mg/dL (1.6-2.3); Non-African American GFR(CKD) >90 (>60 ml/min/1.73 sqM); Phosphorus 3.8 mg/dL (2.5-4.5); Potassium 4.2 mmol/L (3.5-5.1); Sodium 134 mmol/L (137-145)
[2024-06-12] MEDS: ACETAMINOPHEN IV (For NPO) 1,000 MG in EMPTY BAG 1 BAG IVPB SCH (12:47)
--- NOTE | 2024-06-12 12:57 | P.PN ---
Subjective Progress Note Date: 06/12/24 This is a 69-year-old female patient, I was asked to consult on this patient because of hypoxemia the patient is currently on 2 L of oxygen by nasal cannula. In summary, the patient is a case of a recently diagnosed colon mass and the patient was admitted to the hospital for an elective colectomy and splenectomy. The patient had a CAT scan of the abdomen pelvis that was done on 05/05/2024 showed descending colon mass that was quite suspicious for malignancy. Colonoscopy on 05/19/2024 showed a colonic mass and the level of 50 cm from the anal verge and the patient underwent a left colectomy and splenectomy on 06/02/2024. Postop, the patient was being followed up by the medical group and general surgery. She was encountering some nausea for which an NG tube was inserted and the patient was kept NPO. The patient was being hydrated with IV fluids. She remained afebrile and she demonstrated no evidence of any bleeding. Overnight, the patient desaturated and the patient was placed on 2 L of oxygen by nasal cannula. The white cell count is at 19.2 which is stable/improved and the patient's hemoglobin also has dropped down to 7.7 with a platelet count of 629 and the patient has a BUN of 3 with a creatinine of 0.4 and sodium levels at 136. Chest x-ray was done and showed NG tube being in good location. No acute cardiopulmonary process. Some minor atelectatic changes in the left lung base which are essentially improving. The patient is currently on D5 half-normal saline at rate of 50 cc an hour. The patient is on Zofran, Reglan and Dilaudid for pain control. The patient remains on Pepcid. No hemoptysis. No pleurisy. No reported aspiration. The surgical pathology was consistent with invasive moderate differentiated chronic adenocarcinoma with negative marginsAnd there w as no omental involvement. The spleen was negative for carcinoma. Tumor size was 8 cm in size and the lymph nodes were also negative. The patient is seen today June 09, 2024 in follow-up on the regular medical floor. She is currently sitting up in bed. Awake and alert in no acute distress. Maintaining O2 saturations in the 90s on 2 L/min per nasal cannula. Chest x-ray had revealed evidence of atelectasis. She is encouraged regarding the increased use of the incentive spirometer. She has D5 and a half normal saline at 50 mL/h. Nasogastric tube remains in place. White count 20.5. Hemoglobin 7.6. Platelets 670. Sodium 136. Potassium 3.4. Bicarb 27. BUN 7. Creatinine 0.4. Glucose 101. The patient is seen today June 10, 2024 in follow-up on the regular medical floor. She is currently resting comfortably in bed. Awake and alert in no acute distress. Maintaining good O2 saturations in the 90s on 2 L/min per nasal cannula. Encouraged the increased use of the incentive spirometer. She remains afebrile. Hemodynamically stable. White count 20.8. Hemoglobin 7.9. Platelets 764. Nasogastric tube remains in place. She is status post 1 unit of packed red blood cells this admission. She remains on D5 and half-normal saline at 50 mL/h. The patient is seen today June 11, 2024 in follow-up on the regular medical floor. She is sitting up in bed. Awake and alert in no acute distress. Denies any worsening shortness of breath, cough or congestion. She is maintaining good O2 saturations in the 90s on 2 L/min per nasal cannula. She is working well wi th the incentive spirometer. She is being nourished with TPN and lipids. She has D5 and half-normal saline at 50 mL/h. Her pain is well-managed. White count 19.9. Hemoglobin 7.9. Platelets 788. Sodium 133. Potassium 3.8. Bicarb 32. BUN 9. Creatinine 0.45. Glucose 116. The patient is seen today June 12, 2024 in follow-up on the regular medical floor. She is sitting up in a chair at the bedside. Awake and alert in no acute distress. Maintaining good O2 saturations in the 90s on 2 L per minute per nasal cannula. Working well with the incentive spirometer. On TPN at 68 mL/h. Receiving lipids every 72 hours. The patient had not had any bowel activity since surgery. Remains with nasogastric tube. CT scan of the abdomen and pelvis revealed postsurgical changes from left hemicolectomy without evidence of obstruction. Few fluid collections identified within the anterior lower abdomen and left paracolic gutter concerning for possible abscesses. Jejunal wall thickening within the left upper quadrant. Could represent postsurgical change with other etiologies such as infectious/inflammatory process. Ischemia not excluded. Small left pleural effusion. Sodium 134. Potassium 4.2. Bicarb 29. BUN 12. Creatinine 0.1. Glucose 113. Objective - Vital Signs Vital signs: Vital Signs Temp 99.0 F 06/12/24 08:09 Pulse 104 H 06/12/24 08:09 Resp 16 06/12/24 08:09 BP 127/75 06/12/24 08:09 Pulse Ox 92 L 06/12/24 08:09 FiO2 Intake & Output 06/11/24 06/12/24 06/12/24 18:59 06:59 18:59 Intake Total 970 Output Total 900 600 Balance 70 -600 Weight 83.8 kg Intake: Intake, IV Titration 970 Amount Dextrose 5%-0.45% NaCl 1, 600 000 ml @ 50 mls/hr IV . Q20H [facility]EL Rx#:[id number] Fat Emulsion 20% 250 ml @ 40 20.833 mls/hr IV Q72H [facility]EL Rx#:[id number] Parenteral Electrolytes 330 20 ml Potassium Phosphate 15 mmol Mvi, Adult No.4 with Vit K 10 ml Trace ( Conc-1Ml/Dose) 1 ml In Amino Acids 5 %/Dextrose 20 % 1,000 ml @ 30 mls/hr IV .Q24H G[facility]RIEL Rx#: [id number] Output: Gastric Drainage 900 600 Other: Voiding Method Bedside Commode Bedside Commode Bedpan Diaper Diaper # Voids 1 2 1 - Exam GENERAL EXAM: Alert, 69-year-old female, up in a chair, on 2 L nasal cannula, comfortable in no apparent distress. HEAD: Normocephalic. EYES: Normal reaction of pupils, equal size. NOSE: Clear with pink turbinates. Nasogastric tube remains in place. THROAT: No erythema or exudates. NECK: No masses, no JVD. CHEST: No chest wall deformity. LUNGS: Equal air entry with no crackles, wheeze, rhonchi or dullness. CVS: S1 and S2 normal with no audible murmur, regular rhythm. ABDOMEN: Abdominal binder in place. Dressing dry and intact. Normal bowel sounds, no guarding or rigidity. SPINE: No scoliosis or deformity SKIN: No rashes CENTRAL NERVOUS SYSTEM: No focal deficits, tone is normal in all 4 extremities. EXTREMITIES: SCDs in place. There is no peripheral edema. No clubbing, no cyanosis. Peripheral pulses are intact. - Labs CBC & Chem 7: 06/11/24 05:08 06/12/24 05:14 Labs: Abnormal Lab Results - Last 24 Hours (Table) 06/12/24 Range/Units 05:14 Sodium 134 L (137-145) mmol/L Creatinine 0.41 L (0.52-1.04) mg/dL Glucose 113 H (74-99) mg/dL Calcium 8.1 L (8.4-10.2) mg/dL Assessment and Plan Assessment: Acute hypoxic respiratory failure, secondary to postop atelectatic changes. Not an unexpected outcome of surgery. No evidence of pneumonia. No reported aspiration. Currently on 2 L of oxygen by nasal cannula Adenocarcinoma of colonic mass and the patient underwent a left colectomy and splenectomy on June 02, 2024. Remains n.p.o. with nasogastric tube in place. Initiated on TPN and lipids Blood loss anemia and postop, the patient dropped her hemoglobin down to 6.9, requiring a unit of packed RBC and the most recent hemoglobin is at 7.9 Leukocytosis, likely reactive postsplenectomy, trending down Obesity with a BMI of 34.9 Plan: The patient was seen and evaluated Labs and medications reviewed CT scan abdomen/pelvis reviewed Encourage increased use of the incentive spirometer Titrate down/off the FiO2 as tolerated Nasogastric tube in place Receiving TPN and lipids Increase her activity as tolerated We will continue to follow I have personally seen and examined the patient, performed the documentation and the assessment and plan as written. Number of minutes spent on the visit: 10 Dictation was produced using [employer] dictation software. Please excuse any grammatical, word or spelling errors.
[2024-06-12] MEDS: KETOROLAC 15 MG/ML 1 ML VIAL IVP SCH (13:18)
--- NOTE | 2024-06-12 13:51 | P.PN ---
Subjective Progress Note Date: 06/12/24 SURGICAL PROGRESS NOTE CHIEF COMPLAINT: Colon mass HISTORY OF PRESENT ILLNESS: Patient is postop day #9 status post left colectomy and splenectomy. Patient is still had no bowel activity since surgery. NG tube with 600 mL output. Afebrile. She has had some mild tachycardia. WBC 19.96 Hgb 7.9 platelets 788 sodium is 134 potassium 4.2 creatinine 0[address] scan reported postsurgical changes from left hemicolectomy without evidence of obstruction. Few fluid collections identified within the anterior lower abdomen and left paracolic gutter concerning for possible abscess. Jejunal wall thickening left upper quadrant. Could represent postsurgical change. Ischemia not excluded. Patient did have dizziness which could be related to the Dilaudid. Due to her dizziness she has been unable to ambulate. Patient seen and examined with Dr. Main PHYSICAL EXAM: VITAL SIGNS: Reviewed. GENERAL: Well-developed in no acute distress. ABDOMEN: Soft. Nondistended. Incision site clean dry and intact. No drainage. No erythema. Mild tenderness at incision site. NEUROLOGIC: Alert and oriented. Cranial nerves II through XII grossly intact. ASSESSMENT: 1. Left colon mass invading into the retroperitoneum status post left colectomy. 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 Anemia possible acute blood loss anemia from surgery 3. Leukocytosis likely reactive from splenectomy 4. Possible postoperative ileus can be an expected finding PLAN: -Continue NG tube for decompression -Keep patient n.p.o. -CT scan results reviewed with Dr. Main. He did not feel that the fluid collections were abscesses. -Patient placed empirically on Zosyn. -Encourage patient to ambulate -Discontinue Dilaudid likely contributing to patient's dizziness -IV Tylenol and Toradol added for pain management -Continue Reglan -Encourage patient to ambulate -Continue IV fluids -Encourage patient to use incentive spirometer -GI prophylaxis Pepcid and DVT prophylaxis resume subcu heparin Physician It Consultant note has been reviewed by physician. Signing provider agrees with the documented findings, assessment, and plan of care. Objective - Vital Signs Vital signs: Vital Signs Temp 98.5 F 06/12/24 12:40 Pulse 98 06/12/24 12:40 Resp 14 06/12/24 12:40 BP 114/60 06/12/24 12:40 Pulse Ox 98 06/12/24 12:40 FiO2 Intake & Output 06/11/24 06/12/24 06/12/24 18:59 06:59 18:59 Intake Total 970 Output Total 900 600 Balance 70 -600 Weight 83.8 kg Intake: Intake, IV Titration 970 Amount Dextrose 5%-0.45% NaCl 1, 600 000 ml @ 50 mls/hr IV . Q20H [facility] Rx#:[id number] Fat Emulsion 20% 250 ml @ 40 20.833 mls/hr IV Q72H [facility] Rx#:[id number] Parenteral Electrolytes 330 20 ml Potassium Phosphate 15 mmol Mvi, Adult No.4 with Vit K 10 ml Trace ( Conc-1Ml/Dose) 1 ml In Amino Acids 5 %/Dextrose 20 % 1,000 ml @ 30 mls/hr IV .Q24H [facility] Rx#: [id number] Output: Gastric Drainage 900 600 Other: Voiding Method Bedside Commode Bedside Commode Bedpan Diaper Diaper # Voids 1 2 1 - Labs CBC & Chem 7: 06/11/24 05:08 06/12/24 05:14 Labs: Abnormal Lab Results - Last 24 Hours (Table) 06/12/24 Range/Units 05:14 Sodium 134 L (137-145) mmol/L Creatinine 0.41 L (0.52-1.04) mg/dL Glucose 113 H (74-99) mg/dL Calcium 8.1 L (8.4-10.2) mg/dL
--- NOTE | 2024-06-12 14:30 | XR ---
EXAMINATION TYPE: XR chest 2V DATE OF EXAM: 06/12/2024 2:23 PM COMPARISON: None. CLINICAL INDICATION: Female, 69 years old with history of sob, TECHNIQUE: XR chest 2V view(s) obtained. FINDINGS: The heart size is normal. The pulmonary vasculature is normal. The lungs are clear. Spondylosis thoracic spine PICC line tip in the superior vena cava region IMPRESSION: 1. No acute pulmonary process. 2. PICC line tip in the superior vena cava region [facility], , 06/12/2024 2:27 PM
--- NOTE | 2024-06-12 16:08 | XR ---
EXAMINATION TYPE: XR chest 1V portable DATE OF EXAM: 06/12/2024 3:41 PM COMPARISON: 06/12/2024 CLINICAL INDICATION: Female, 69 years old with history of NGT placement, TECHNIQUE: XR chest 1V portable view(s) obtained. FINDINGS: The heart size is normal. The pulmonary vasculature is normal. The lungs are clear. Gastric tube is in place with tip in the proximal left upper quadrant of the ab domen. Spondylosis thoracic spine IMPRESSION: 1. No acute pulmonary process. 2. NG tube placement with the tip in the proximal left upper quadrant abdomen [facility], , 06/12/2024 4:06 PM
[2024-06-12] MEDS: PIPERACILLIN-TAZOBACTAM 3.375 GM in SODIUM CHLORIDE 0.9% 100 ML IVPB SCH (16:53)
[2024-06-12] MEDS: MECLIZINE 12.5 MG TAB PO SCH (16:57)
[2024-06-12] MEDS: HEPARIN SODIUM,PORCINE 5,000 UNIT/ML 1 ML VIAL SQ SCH (20:41)
--- NOTE | 2024-06-13 05:10 | P.PN ---
Subjective Progress Note Date: 06/12/24 Reason for Consult Consult date: 06/03/24 Medical management - Chief Complaint Status post colectomy - History of Present Illness Patient is a 69-year-old female with recently diagnosed colon mass was admitted to hospital for elective colectomy and splenectomy. Patient had CT of the abdomen pelvis on 05/05/2024 showed descending colon eccentric wall thickening extending up to 9.8 cm concerning for malignancy until proven otherwise. Colonoscopy recommended. No mesenteric lymph nodes identified at this time. No liver masses definitely visualized. Patient had colonoscopy done on 05/19/2024 showed colon mass at 50 cm. Patient is status post surgery. He is complaining of pain and is fairly controlled with pain management. No complaints of chest pain or shortness of breath. No nausea or vomiting. Has not passed flatus. No fever no chills. Laboratory data showed WBC 25.5 hemoglobin 7.6 and platelets 368 Sodium 133 potassium 4.0 chloride 101 bicarb is 28 BUN 15 and creatinine 0.53 and blood sugar 132 Urinalysis is negative for infection. 06/04/2024 Patient is seen in follow-up today status post colectomy with general surgery. Patient is reporting continued nausea with some vomiting and some shortness of breath. Patient is continued on nasal cannula and reports does not wear oxygen outpatient. Will obtain a chest x-ray. White count is elevated and patient denies any bowel activity as of yet. 06/05/2024 Patient is seen in follow-up today and nausea has improved after NG tube placement. Continue on n.p.o. for now per surgery. Encouraged increase activity as tolerated with more frequent walking and getting up off the bed. Patient continues to have significant abdominal pain in the abdomen when moving although patient was able to get up to the chair. Recommend discontinuing Mora catheter and monitoring for voiding issues. No bowel activity as of yet and bowel sounds are currently absent. Possible postop ileus. Patient denies chest pain or palpitations. Patient continues on oxygen via nasal cannula and does not normally wear recommend wean FiO2 as tolerated. 06/06/2024 Patient is seen in follow-up this morning continues with NG tube and n.p.o. Patient maintained on IV hydration and will decrease the dose slightly as patient was continuing to require oxygen. Encouraged incentive spirometer use and weaning oxygen as tolerated. Patient does not wear oxygen outpatient. Likely a component of volume overload. Patient has been extremely weak and difficulty getting up although has been able to do so and Mora catheter removed. Patient is voiding and reports no bowel movement as of yet. Encouraged increase activity as tolerated and getting up and sitting in the chair along with walking more frequently. Patient is afebrile and white count is trending down and hemoglobin is stable above 8. No active bleeding noted. 06/07. Patient seen and examined. Still has NG tube in place. Patient is not passing any gas or bowel movement 06/08. Patient seen and examined. Patient desaturated overnight, had to be placed on oxygen. Will order chest x-ray and pulmonary consult 06/09/2024 Patient is seen in follow-up with general surgery is attending and pulmonary following. Patient is maintained on 2 to 3 L via nasal cannula does not normally require oxygen outpatient. Patient continues with NG tube with significant amount of output noted and denies passing flatus and has not had a bowel movement. Patient is n.p.o. and will continue per surgery. Patient reports is persistent on going home tomorrow and discussed with patient and family at the bedside there are no plans for discharge as of yet. Patient would need to discuss further with general surgery regarding her discharge planning. Patient has been encouraged to increase activity as tolerated and get up more frequently work with physical therapy daily and sit up in the chair more often. White count remains elevated at 20.59 and platelets are 670, hemoglobin is 7.6 and there is no active bleeding noted. Patient is status post splenectomy and patient remains afebrile. Chest x-ray from yesterday showing no acute cardiopulmonary process. Strongly encouraged incentive spirometer use at least 10 times every hour while awake if not more. 06/10/2024 Patient is seen in follow-up today continues to be n.p.o. with no bowel activity noted. Patient does continue with NG tube with output noted and reports to having some abdominal tenderness although slowly improving. Per surgery patient to receive a PICC line and will be initiating TPN. Patient continues on 2 L via nasal cannula and encouraged the patient to continue using incentive spirometer at least 10 times every hour while awake. Encouraged patient to sit up into the chair and more frequent walking as well. 06/11/2024 Patient is seen in follow-up today continues with an NG tube maintained on TPN and tolerating thus far. Patient reports she is continuing to use her incentive spirometer although remains on 2 L via nasal cannula. Encouraged increased activity as tolerated with more walking and weaning FiO2. Patient reports of dizziness earlier today for an episode when trying to get up. Patient reports that was shortly after IV pain medication was administered. Will obtain orthostatics. 06/12/2024 Patient is seen in follow-up today continues with an NG tube and oxygen via nasal cannula at 2 to 3 L. Patient reports she continues to work on incentive spirometer and weaning FiO2 as tolerated. Patient continues to report some dizziness and will add meclizine 3 times daily scheduled and monitor for impr ovements. Monitor for any hypotension. Again encouraged increase activity as tolerated with frequent walking. No bowel activity and bowel movement as of yet. Patient is continued on TPN. Review of systems: Constitutional: No reports of fatigue, fever, or chills Cardiovascular: No reports of chest pain or palpitations Respiratory: reports of intermittent shortness of breath with exertion GI: No further reports of nausea, no vomiting, reports no gas and no bowel movement as of yet, no further nausea and vomiting, continues with NG tube : No reports of dysuria or retention, voiding with no difficulties Neurovascular: reports of generalized weakness and pain with movement in the abdomen on bilateral lower left and right quadrants All medications have been reviewed PHYSICAL EXAMINATION: Patient is sitting up in the chair, , awake alert and oriented x 3.. Appears elderly, obese, well-developed HEENT: Normocephalic. Neck is supple. Pupils reactive. Nostrils clear. Oral cavity is moist. NG tube noted Neck reveals no JVD, carotid bruits, or thyromegaly. CHEST EXAMINATION: Trachea is central. Symmetrical expansion. Bibasilar diminished sounds otherwise lung m[place] clear to auscultation and percussion. CARDIAC: Normal S1, S2 with no gallops. No murmurs, sinus tach ABDOMEN: Soft. Obese. Bowel sounds hypoactive. Surgical site bandaged.. Tender on palpation no organomegaly. No abdominal bruits. Extremities: reveal no edema. No clubbing or cyanosis Neurologically awake, alert, oriented x3 with well-coordinated movements. No focal deficits noted, diffusely weak Skin: No rash or skin lesions. Psychiatric: Cooperative. Non-suicidal Musculoskeletal: No joint swelling or deformity. Normal range of motion. Assessment: Status post left colectomy and splenectomy. 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 Hemoglobin was less than 7 and improved status post unit of PRBC, no active bleeding noted Leukocytosis likely reactive. Status post splenectomy, trending down Acute hypoxic respiratory failure secondary to atelectasis. As well as possible volume overload, wean FiO2 as tolerated Obesity with a BMI 34.9 GI and DVT prophylaxis as per primary team Full code Plan: Patient will be continued on current medications with pulmonary, general surgery following Monitor H&H and CBC closely. Hemoglobin is stable over 7 status post a unit of PRBC. Follow-up on repeat labs. No active bleeding noted urinalysis is negative for infection. Continue with IV hydration while patient n.p.o. at a decreased rate. Monitor overall fluid intake as patient is now on TPN PT OT following and encouraged to increase activity as tolerated with sitting up in the chair more often and frequent walking Encouraged incentive spirometer use at least 10 times every hour while awake and getting up more frequently and walking and sitting up in the chair, likely a component of volume overload and have decrease the rate of IV infusion. Patient continues to report dizziness when getting up and standing feeling lightheaded and will add meclizine scheduled. Obtain orthostatics at least d aily Patient has received a PICC line and TPN ongoing. Patient continues with no bowel activity as of yet. Dietary on consult Patient continues to be n.p.o. with no bowel activity as of yet, patient denies passing gas or having bowel movement. Patient continues with the NG tube. We will continue to follow with general surgery during hospitalization. Thank you kindly for this consultation. The impression and plan of care has been dictated by Shannon Villalobos, Nurse Practitioner as directed. Dr. Morris MD I have performed a history and examination and MDM of this patient, discussed the same with the dictator, and agree with the dictator's assessment and plan as written ,documented as a scribe. Based on total visit time, I have performed more than 50% of the visit. Objective - Vital Signs Vital signs: Vital Signs Temp 98.1 F 06/13/24 01:34 Pulse 85 06/13/24 01:34 Resp 16 06/13/24 01:34 BP 116/75 06/13/24 01:34 Pulse Ox 99 06/13/24 01:34 FiO2 Intake & Output 06/12/24 06/12/24 06/13/24 06:59 18:59 06:59 Intake Total 1025 Output Total 600 300 Balance -600 1025 -300 Weight 83.8 kg Intake: Intake, IV Titration 1025 Amount Parenteral Electrolytes 1025 20 ml Potassium Phosphate 15 mmol In Amino Acids 5 %/Dextrose 20 % 1,000 ml @ 68 mls/hr IV .BY D[facility]ATION [facility] Rx#: [id number] Output: Gastric Drainage 600 Urine 300 Other: Voiding Method Bedside Commode Bedside Commode Bedside Commode Bedpan Diaper Bedpan Diaper Diaper # Voids 2 1 1 - Labs CBC & Chem 7: 06/11/24 05:08 06/12/24 05:14 Labs: Abnormal Lab Results - Last 24 Hours (Table) 06/12/24 Range/Units 05:14 Sodium 134 L (137-145) mmol/L Creatinine 0.41 L (0.52-1.04) mg/dL Glucose 113 H (74-99) mg/dL Calcium 8.1 L (8.4-10.2) mg/dL
[2024-06-13 08:52] LABS: Basophils # (A) 0.08 X 10*3/uL (0.00-0.10); Basophils % (A) 0.4 %; Eosinophils # (A) 0.39 X 10*3/uL (0.04-0.35); Eosinophils % (A) 1.7 %; HCT 25.2 % (37.2-46.3); HGB 7.9 g/dL (12.0-15.0); Lymphocytes # (A) 3.33 X 10*3/uL (0.90-5.00); Lymphocytes % (A) 14.9 %; MCH 28.1 pg (27.0-32.0); MCHC 31.3 g/dL (32.0-37.0); MCV 89.7 FL (80.0-97.0); Mean Platelet Volume 9.8 FL (9.5-12.2); Monocytes # (A) 1.66 X 10*3/uL (0.20-1.00); Monocytes % (A) 7.4 %; NRBC Per 100 WBC 0.02 X 10*3/uL (0.00-0.01); Neutrophils # (A) 16.74 X 10*3/uL (1.80-7.70); Neutrophils % (A) 74.7 %; Platelet Count 792 X 10*3/uL (140-440); RBC 2.81 X 10*6/uL (4.10-5.20); RDW 16.1 % (11.5-14.5); WBC 22.41 X 10*3/uL (4.50-10.00)
[2024-06-13 09:45] LABS: African American GFR (CKD) >90 (>60 ml/min/1.73 sqM); Anion Gap 4 mmol/L; Blood Urea Nitrogen 16 mg/dL (7-17); Calcium 8.1 mg/dL (8.4-10.2); Carbon Dioxide 29 mmol/L (22-30); Chloride 102 mmol/L (98-107); Glucose 108 mg/dL (74-99); Magnesium 2.1 mg/dL (1.6-2.3); Non-African American GFR(CKD) >90 (>60 ml/min/1.73 sqM); Phosphorus 4.6 mg/dL (2.5-4.5); Potassium 3.9 mmol/L (3.5-5.1); Sodium 135 mmol/L (137-145)
--- NOTE | 2024-06-13 12:14 | P.PN ---
Subjective Progress Note Date: 06/13/24 This is a 69-year-old female patient, I was asked to consult on this patient because of hypoxemia the patient is currently on 2 L of oxygen by nasal cannula. In summary, the patient is a case of a recently diagnosed colon mass and the patient was admitted to the hospital for an elective colectomy and splenectomy. The patient had a CAT scan of the abdomen pelvis that was done on 05/05/2024 showed descending colon mass that was quite suspicious for malignancy. Colonoscopy on 05/19/2024 showed a colonic mass and the level of 50 cm from the anal verge and the patient underwent a left colectomy and splenectomy on 06/02/2024. Postop, the patient was being followed up by the medical group and general surgery. She was encountering some nausea for which an NG tube was inserted and the patient was kept NPO. The patient was being hydrated with IV fluids. She remained afebrile and she demonstrated no evidence of any bleeding. Overnight, the patient desaturated and the patient was placed on 2 L of oxygen by nasal cannula. The white cell count is at 19.2 which is stable/improved and the patient's hemoglobin also has dropped down to 7.7 with a platelet count of 629 and the patient has a BUN of 3 with a creatinine of 0.4 and sodium levels at 136. Chest x-ray was done and showed NG tube being in good location. No acute cardiopulmonary process. Some minor atelectatic changes in the left lung base which are essentially improving. The patient is currently on D5 half-normal saline at rate of 50 cc an hour. The patient is on Zofran, Reglan and Dilaudid for pain control. The patient remains on Pepcid. No hemoptysis. No pleurisy. No reported aspiration. The surgical pathology was consistent with invasive moderate differentiated chronic adenocarcinoma with negative marginsAnd there w as no omental involvement. The spleen was negative for carcinoma. Tumor size was 8 cm in size and the lymph nodes were also negative. The patient is seen today June 09, 2024 in follow-up on the regular medical floor. She is currently sitting up in bed. Awake and alert in no acute distress. Maintaining O2 saturations in the 90s on 2 L/min per nasal cannula. Chest x-ray had revealed evidence of atelectasis. She is encouraged regarding the increased use of the incentive spirometer. She has D5 and a half normal saline at 50 mL/h. Nasogastric tube remains in place. White count 20.5. Hemoglobin 7.6. Platelets 670. Sodium 136. Potassium 3.4. Bicarb 27. BUN 7. Creatinine 0.4. Glucose 101. The patient is seen today June 10, 2024 in follow-up on the regular medical floor. She is currently resting comfortably in bed. Awake and alert in no acute distress. Maintaining good O2 saturations in the 90s on 2 L/min per nasal cannula. Encouraged the increased use of the incentive spirometer. She remains afebrile. Hemodynamically stable. White count 20.8. Hemoglobin 7.9. Platelets 764. Nasogastric tube remains in place. She is status post 1 unit of packed red blood cells this admission. She remains on D5 and half-normal saline at 50 mL/h. The patient is seen today June 11, 2024 in follow-up on the regular medical floor. She is sitting up in bed. Awake and alert in no acute distress. Denies any worsening shortness of breath, cough or congestion. She is maintaining good O2 saturations in the 90s on 2 L/min per nasal cannula. She is working well wi th the incentive spirometer. She is being nourished with TPN and lipids. She has D5 and half-normal saline at 50 mL/h. Her pain is well-managed. White count 19.9. Hemoglobin 7.9. Platelets 788. Sodium 133. Potassium 3.8. Bicarb 32. BUN 9. Creatinine 0.45. Glucose 116. The patient is seen today June 12, 2024 in follow-up on the regular medical floor. She is sitting up in a chair at the bedside. Awake and alert in no acute distress. Maintaining good O2 saturations in the 90s on 2 L per minute per nasal cannula. Working well with the incentive spirometer. On TPN at 68 mL/h. Receiving lipids every 72 hours. The patient had not had any bowel activity since surgery. Remains with nasogastric tube. CT scan of the abdomen and pelvis revealed postsurgical changes from left hemicolectomy without evidence of obstruction. Few fluid collections identified within the anterior lower abdomen and left paracolic gutter concerning for possible abscesses. Jejunal wall thickening within the left upper quadrant. Could represent postsurgical change with other etiologies such as infectious/inflammatory process. Ischemia not excluded. Small left pleural effusion. Sodium 134. Potassium 4.2. Bicarb 29. BUN 12. Creatinine 0.1. Glucose 113. The patient is seen today June 13, 2024 in follow-up on the regular medical floor. She is currently sitting up at the bedside. Awake and alert in no acute distress. Getting stronger each day. She is passing flatus. No bowel movements. She is maintaining O2 saturations in the high 90s on 2 L/min per nasal cannula. She is afebrile. Hemodynamically stable. Continues to work well with the incentive spirometer. She is status post 1 unit of packed red blood cells. Current hemoglobin 7.9. Platelets 792. White count 22.4. Sodium 135. Potassium 3.9. Bicarb 29. BUN 16. Creatinine 0.5. Glucose 108. Remains on TPN at 68 mL/h. Lipids every 72 hours. Antibiotics in the form of Zosyn. Heparin for DVT prophylaxis. Objective - Vital Signs Vital signs: Vital Signs Temp 98.4 F 06/13/24 07:24 Pulse 80 06/13/24 07:24 Resp 16 06/13/24 07:24 BP 115/69 06/13/24 07:24 Pulse Ox 99 06/13/24 07:24 FiO2 Intake & Output 06/12/24 06/13/24 06/13/24 18:59 06:59 18:59 Intake Total 1025 1198 Output Total 750 100 Balance 1025 448 -100 Weight 83.8 kg Intake: Intake, IV Titration 1025 1198 Amount ACETAMINOPHEN IV (For NPO 200 ) 1,000 mg In Empty Bag 1 bag @ 400 mls/hr IVPB Q6HR [facility] Rx#:[id number] Dextrose 5%-0.45% NaCl 1, 150 000 ml @ 50 mls/hr IV . Q20H [facility] Rx#:[id number] Parenteral Electrolytes 1025 20 ml Potassium Phosphate 15 mmol In Amino Acids 5 %/Dextrose 20 % 1,000 ml @ 68 mls/hr IV .BY DURATION [facility] Rx#: [id number] Parenteral Electrolytes 748 20 ml Potassium Phosphate 15 mmol Mvi, Adult No.4 with Vit K 10 ml Trace ( Conc-1Ml/Dose) 1 ml In Amino Acids 5 %/Dextrose 20 % 1,000 ml @ 68 mls/hr IV .BY DURATION [facility] Rx#: [id number] Piperacillin-Tazobactam 3 100 .375 gm In Sodium Chloride 0.9% 100 ml @ 25 mls/hr IVPB Q8HR [facility] Rx# :[id number] Output: Gastric Drainage 450 100 Urine 300 Other: Voiding Method Bedside Commode Bedside Commode Diaper Bedpan Diaper # Voids 1 1 - Exam GENERAL EXAM: Alert, oriented, pleasant 69-year-old female, up in a chair, on 2 L nasal cannula, comfortable in no apparent distress. HEAD: Normocephalic. EYES: Normal reaction of pupils, equal size. NOSE: Clear with pink turbinates. Nasogastric tube remains in place. THROAT: No erythema or exudates. NECK: No masses, no JVD. CHEST: No chest wall deformity. LUNGS: Equal air entry with no crackles, wheeze, rhonchi or dullness. CVS: S1 and S2 normal with no audible murmur, regular rhythm. ABDOMEN: Abdominal binder in place. Dressing dry and intact. No guarding or rigidity. SPINE: No scoliosis or deformity SKIN: No rashes CENTRAL NERVOUS SYSTEM: No focal deficits, tone is normal in all 4 extremities. EXTREMITIES: SCDs in place. There is no peripheral edema. No clubbing, no cyanosis. Peripheral pulses are intact. - Labs CBC & Chem 7: 06/13/24 05:10 06/13/24 05:10 Labs: Abnormal Lab Results - Last 24 Hours (Table) 06/13/24 06/13/24 Range/Units 05:10 05:10 WBC 22.41 H (4.50-10.00) X 10*3/uL RBC 2.81 L (4.10-5.20) X 10*6/uL Hgb 7.9 L (12.0-15.0) g/dL Hct 25.2 L (37.2-46.3) % MCHC 31.3 L (32.0-37.0) g/dL RDW 16.1 H (11.5-14.5) % Plt Count 792 H (140-440) X 10*3/uL Immature Gran # 0.21 H (0.00-0.04) X 10*3/uL Neutrophils # 16.74 H (1.80-7.70) X 10*3/uL Monocytes # 1.66 H (0.20-1.00) X 10*3/uL Eosinophils # 0.39 H (0.04-0.35) X 10*3/uL NRBC/100 WBC Diff 0.02 H (0.00-0.01) X 10*3/uL Sodium 135 L (137-145) mmol/L Creatinine 0.50 L (0.52-1.04) mg/dL Glucose 108 H (74-99) mg/dL Calcium 8.1 L (8.4-10.2) mg/dL Phosphorus 4.6 H (2.5-4.5) mg/dL Assessment and Plan Assessment: Acute hypoxic respiratory failure, secondary to postop atelectatic changes. Not an unexpected outcome of surgery. No evidence of pneumonia. No reported aspiration. Currently on 2 L of oxygen by nasal cannula. Follow-up chest x-ray reveals no acute pulmonary process Adenocarcinoma of colonic mass and the patient underwent a left colectomy and splenectomy on June 02, 2024. Remains n.p.o. with nasogastric tube in place. Initiated on TPN and lipids Blood loss anemia and postop, the patient dropped her hemoglobin down to 6.9, requiring a unit of packed RBC and the most recent hemoglobin is at 7.9 Leukocytosis, likely reactive postsplenectomy Obesity with a BMI of 34.9 Plan: The patient was seen and evaluated Chest x-ray, labs and medications reviewed No acute pulmonary process Working well with the incentive spirometer Titrate off the FiO2 as tolerated Receiving TPN and lipids Heparin for DVT prophylaxis Increase her activity as tolerated We will continue to follow I have personally seen and examined the patient, performed the documentation and the assessment and plan as written. Number of minutes spent on the visit: 10 Dictation was produced using [employer] software. Please excuse any grammatical, word or spelling errors.
--- NOTE | 2024-06-13 13:57 | P.PN ---
Subjective Progress Note Date: 06/13/24 SURGICAL PROGRESS NOTE CHIEF COMPLAINT: Colon mass HISTORY OF PRESENT ILLNESS: Patient is postop day #10 status post left colectomy and splenectomy. Patient is having flatus. Denies any nausea. NG tube with 450 mL output. Afebrile. WBC 22.4 Hgb 7.9 Patient seen and examined with Dr. Main PHYSICAL EXAM: VITAL SIGNS: Reviewed. GENERAL: Well-developed in no acute distress. ABDOMEN: Soft. Nondistended. Incision site clean dry and intact. No drainage. No erythema. Mild tenderness at incision site. NEUROLOGIC: Alert and oriented. Cranial nerves II through XII grossly intact. ASSESSMENT: 1. Left colon mass invading into the retroperitoneum status post left colectomy. 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 Anemia possible acute blood loss anemia from surgery 3. Leukocytosis likely reactive from splenectomy 4. Ileus possibly secondary to the Dilaudid PLAN: -Discontinue NG tube -Start clear liquid diet -Medicine service has ordered a unit of blood -CT scan results reviewed with Dr. Main. He did not feel that the fluid collections were abscesses. -Patient will need to follow-up with oncology services outpatient -Continue antibiotics -Continue current pain management -Continue Reglan -Continue TPN for now for nutrition support -Encourage patient to ambulate -Encourage patient to use incentive spirometer -GI prophylaxis Pepcid and DVT prophylaxis resume subcu heparin Physician [place] Guide note has been reviewed by physician. Signing provider agrees with the documented findings, assessment, and plan of care. Objective - Vital Signs Vital signs: Vital Signs Temp 98.4 F 06/13/24 07:24 Pulse 80 06/13/24 07:24 Resp 16 06/13/24 07:24 BP 115/69 06/13/24 07:24 Pulse Ox 99 06/13/24 07:24 FiO2 Intake & Output 06/12/24 06/13/24 06/13/24 18:59 06:59 18:59 Intake Total 1025 1198 Output Total 750 100 Balance 1025 448 -100 Weight 83.8 kg Intake: Intake, IV Titration 1025 1198 Amount ACETAMINOPHEN IV (For NPO 200 ) 1,000 mg In Empty Bag 1 bag @ 400 mls/hr IVPB Q6HR [facility] Rx#:[id number] Dextrose 5%-0.45% NaCl 1, 150 000 ml @ 50 mls/hr IV . Q20H [facility] Rx#:[id number] Parenteral Electrolytes 1025 20 ml Potassium Phosphate 15 mmol In Amino Acids 5 %/Dextrose 20 % 1,000 ml @ 68 mls/hr IV .BY DURATION [facility] Rx#: [id number] Parenteral Electrolytes 748 20 ml Potassium Phosphate 15 mmol Mvi, Adult No.4 with Vit K 10 ml Trace ( Conc-1Ml/Dose) 1 ml In Amino Acids 5 %/Dextrose 20 % 1,000 ml @ 68 mls/hr IV .BY DURATION [facility] Rx#: [id number] Piperacillin-Tazobactam 3 100 .375 gm In Sodium Chloride 0.9% 100 ml @ 25 mls/hr IVPB Q8HR [facility] Rx# :[id number] Output: Gastric Drainage 450 100 Urine 300 Other: Voiding Method Bedside Commode Bedside Commode Diaper Bedpan Diaper # Voids 1 1 - Labs CBC & Chem 7: 06/13/24 05:10 06/13/24 05:10 Labs: Abnormal Lab Results - Last 24 Hours (Table) 06/13/24 06/13/24 06/13/24 Range/Units 05:10 05:10 11:33 WBC 22.41 H (4.50-10.00) X 10*3/uL RBC 2.81 L (4.10-5.20) X 10*6/uL Hgb 7.9 L (12.0-15.0) g/dL Hct 25.2 L (37.2-46.3) % MCHC 31.3 L (32.0-37.0) g/dL RDW 16.1 H (11.5-14.5) % Plt Count 792 H (140-440) X 10*3/uL Immature Gran # 0.21 H (0.00-0.04) X 10*3/uL Neutrophils # 16.74 H (1.80-7.70) X 10*3/uL Monocytes # 1.66 H (0.20-1.00) X 10*3/uL Eosinophils # 0.39 H (0.04-0.35) X 10*3/uL NRBC/100 WBC Diff 0.02 H (0.00-0.01) X 10*3/uL Sodium 135 L (137-145) mmol/L Creatinine 0.50 L (0.52-1.04) mg/dL Glucose 108 H (74-99) mg/dL Calcium 8.1 L (8.4-10.2) mg/dL Phosphorus 4.6 H (2.5-4.5) mg/dL Crossmatch See Detail
[2024-06-13] MEDS: AMINO ACIDS IV SCH (17:37)
[2024-06-13] MEDS: DEXTROSE IV SCH (17:37)
[2024-06-13] MEDS: PARENTERAL ELECTROLYTES IV SCH (17:37)
[2024-06-13] MEDS: POTASSIUM CHLORIDE IV SCH (17:37)
[2024-06-13] MEDS ORDERED: HYDROmorphone 0.5 MG/0.5 ML SYRINGE IVP PRN (19:30)
[2024-06-13] MEDS: ACETAMINOPHEN TAB 325 MG TAB PO PRN (21:50)
--- NOTE | 2024-06-14 04:39 | P.PN ---
Subjective Progress Note Date: 06/13/24 Reason for Consult Consult date: 06/03/24 Medical management - Chief Complaint Status post colectomy - History of Present Illness Patient is a 69-year-old female with recently diagnosed colon mass was admitted to hospital for elective colectomy and splenectomy. Patient had CT of the abdomen pelvis on 05/05/2024 showed descending colon eccentric wall thickening extending up to 9.8 cm concerning for malignancy until proven otherwise. Colonoscopy recommended. No mesenteric lymph nodes identified at this time. No liver masses definitely visualized. Patient had colonoscopy done on 05/19/2024 showed colon mass at 50 cm. Patient is status post surgery. He is complaining of pain and is fairly controlled with pain management. No complaints of chest pain or shortness of breath. No nausea or vomiting. Has not passed flatus. No fever no chills. Laboratory data showed WBC 25.5 hemoglobin 7.6 and platelets 368 Sodium 133 potassium 4.0 chloride 101 bicarb is 28 BUN 15 and creatinine 0.53 and blood sugar 132 Urinalysis is negative for infection. 06/04/2024 Patient is seen in follow-up today status post colectomy with general surgery. Patient is reporting continued nausea with some vomiting and some shortness of breath. Patient is continued on nasal cannula and reports does not wear oxygen outpatient. Will obtain a chest x-ray. White count is elevated and patient denies any bowel activity as of yet. 06/05/2024 Patient is seen in follow-up today and nausea has improved after NG tube placement. Continue on n.p.o. for now per surgery. Encouraged increase activity as tolerated with more frequent walking and getting up off the bed. Patient continues to have significant abdominal pain in the abdomen when moving although patient was able to get up to the chair. Recommend discontinuing Mora catheter and monitoring for voiding issues. No bowel activity as of yet and bowel sounds are currently absent. Possible postop ileus. Patient denies chest pain or palpitations. Patient continues on oxygen via nasal cannula and does not normally wear recommend wean FiO2 as tolerated. 06/06/2024 Patient is seen in follow-up this morning continues with NG tube and n.p.o. Patient maintained on IV hydration and will decrease the dose slightly as patient was continuing to require oxygen. Encouraged incentive spirometer use and weaning oxygen as tolerated. Patient does not wear oxygen outpatient. Likely a component of volume overload. Patient has been extremely weak and difficulty getting up although has been able to do so and Mora catheter removed. Patient is voiding and reports no bowel movement as of yet. Encouraged increase activity as tolerated and getting up and sitting in the chair along with walking more frequently. Patient is afebrile and white count is trending down and hemoglobin is stable above 8. No active bleeding noted. 06/07. Patient seen and examined. Still has NG tube in place. Patient is not passing any gas or bowel movement 06/08. Patient seen and examined. Patient desaturated overnight, had to be placed on oxygen. Will order chest x-ray and pulmonary consult 06/09/2024 Patient is seen in follow-up with general surgery is attending and pulmonary following. Patient is maintained on 2 to 3 L via nasal cannula does not normally require oxygen outpatient. Patient continues with NG tube with significant amount of output noted and denies passing flatus and has not had a bowel movement. Patient is n.p.o. and will continue per surgery. Patient reports is persistent on going home tomorrow and discussed with patient and family at the bedside there are no plans for discharge as of yet. Patient would need to discuss further with general surgery regarding her discharge planning. Patient has been encouraged to increase activity as tolerated and get up more frequently work with physical therapy daily and sit up in the chair more often. White count remains elevated at 20.59 and platelets are 670, hemoglobin is 7.6 and there is no active bleeding noted. Patient is status post splenectomy and patient remains afebrile. Chest x-ray from yesterday showing no acute cardiopulmonary process. Strongly encouraged incentive spirometer use at least 10 times every hour while awake if not more. 06/10/2024 Patient is seen in follow-up today continues to be n.p.o. with no bowel activity noted. Patient does continue with NG tube with output noted and reports to having some abdominal tenderness although slowly improving. Per surgery patient to receive a PICC line and will be initiating TPN. Patient continues on 2 L via nasal cannula and encouraged the patient to continue using incentive spirometer at least 10 times every hour while awake. Encouraged patient to sit up into the chair and more frequent walking as well. 06/11/2024 Patient is seen in follow-up today continues with an NG tube maintained on TPN and tolerating thus far. Patient reports she is continuing to use her incentive spirometer although remains on 2 L via nasal cannula. Encouraged increased activity as tolerated with more walking and weaning FiO2. Patient reports of dizziness earlier today for an episode when trying to get up. Patient reports that was shortly after IV pain medication was administered. Will obtain orthostatics. 06/12/2024 Patient is seen in follow-up today continues with an NG tube and oxygen via nasal cannula at 2 to 3 L. Patient reports she continues to work on incentive spirometer and weaning FiO2 as tolerated. Patient continues to report some dizziness and will add meclizine 3 times daily scheduled and monitor for impr ovements. Monitor for any hypotension. Again encouraged increase activity as tolerated with frequent walking. No bowel activity and bowel movement as of yet. Patient is continued on TPN. 06/13/2024 Patient is seen in follow-up this morning currently sitting up in bed has had the NG tube removed as patient is passing gas. Per surgery being started on clears and will continue on TPN. Hemoglobin 7.6 today and will give a unit of PRBCs and follow-up on repeat labs. No active bleeding noted. Patient reports her pain in her abdomen is not as intense and she has been getting up more frequently. Voiding with no difficulties. Patient denies any chest pain or worsening shortness of breath. Patient also currently 94% on room air. Encouraged continued incentive spirometer use. No reported nausea or vomiting and patient reports to feeling hungry. Recommend PT/OT therapy daily as patient is weak with prolonged hospitalization although patient is adamant she will be going home on discharge. Case management is following Review of systems: Constitutional: No reports of fatigue, fever, or chills Cardiovascular: No reports of chest pain or palpitations Respiratory: reports of intermittent shortness of breath with exertion GI: No further reports of nausea, no vomiting, reports passed gas and no bowel movement as of yet, no further nausea and vomiting, NG tube removed : No reports of dysuria or retention, voiding with no difficulties Neurovascular: reports of generalized weakness and pain with movement although improving All medications have been reviewed PHYSICAL EXAMINATION: Patient is sitting up in bed, awake alert and oriented x 3.. Appears elderly, obese, well-developed HEENT: Normocephalic. Neck is supple. Pupils reactive. Nostrils clear. Oral cavity is moist. NG tube noted Neck reveals no JVD, carotid bruits, or thyromegaly. CHEST EXAMINATION: Trachea is central. Symmetrical expansion. Bibasilar diminished sounds otherwise lung [place] clear to auscultation and percussion. CARDIAC: Normal S1, S2 with no gallops. No murmurs, sinus tach ABDOMEN: Soft. Obese. Bowel sounds hypoactive. Surgical site bandaged.. Tender on palpation no organomegaly. No abdominal bruits. Extremities: reveal no edema. No clubbing or cyanosis Neurologically awake, alert, oriented x3 with well-coordinated movements. No focal deficits noted, diffusely weak Skin: No rash or skin lesions. Psychiatric: Cooperative. Non-suicidal Musculoskeletal: No joint swelling or deformity. Normal range of motion. Assessment: Status post left colectomy and splenectomy. 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 Hemoglobin was less than 7 and improved status post unit of PRBC, no active bleeding noted Leukocytosis likely reactive. Status post splenectomy, trending down Acute hypoxic respiratory failure secondary to atelectasis. As well as possible volume overload, wean FiO2 as tolerated, improving, currently on room air Concerns for ileus, possibly secondary to Dilaudid use Obesity with a BMI 34.9 GI and DVT prophylaxis as per primary team Full code Plan: Patient will be continued on current medications with pulmonary, general surgery following Monitor H&H and CBC closely. Hemoglobin is 7.6 and will give a unit of PRBC. Follow-up on repeat labs. No active bleeding noted urinalysis is negative for infection. Continue with IV hydration while patient n.p.o. at a decreased rate. Monitor overall fluid intake as patient is now on TPN PT OT following and encouraged to increase activity as tolerated with sitting up in the chair more often and frequent walking Encouraged incentive spirometer use at least 10 times every hour while awake and getting up more frequently and walking and sitting up in the chair, likely a component of volume overload and patient is currently on room air on exam today Patient reports less dizziness when getting up and standing feeling lightheaded and will continue meclizine. Obtain orthostatics at least daily Patient has received a PICC line and TPN ongoing. Patient did place flatus and NG tube was removed. Patient being started on clears per general surgery We will continue to follow with general surgery during hospitalization. Thank you kindly for this consultation. The impression and plan of care has been dictated by Shannon Villalobos, Nurse Practitioner as directed. Dr. Morris MD I have performed a history and examination and MDM of this patient, discussed the same with the dictator, and agree with the dictator's assessment and plan as written ,documented as a scribe. Based on total visit time, I have performed more than 50% of the visit. Objective - Vital Signs Vital signs: Vital Signs Temp 99.6 F 06/14/24 01:45 Pulse 100 06/14/24 01:45 Resp 16 06/14/24 01:45 BP 117/72 06/14/24 01:45 Pulse Ox 94 L 06/14/24 01:45 FiO2 Intake & Output 06/13/24 06/13/24 06/14/24 06:59 18:59 06:59 Intake Total 1198 1140 Output Total 750 100 8 Balance 448 1040 -8 Intake: Intake, IV Titration 1198 Amount ACETAMINOPHEN IV (For NPO 200 ) 1,000 mg In Empty Bag 1 bag @ 400 mls/hr IVPB Q6HR [facility] Rx#:[id number] Dextrose 5%-0.45% NaCl 1, 150 000 ml @ 50 mls/hr IV . Q20H [facility] Rx#:[id number] Parenteral Electrolytes 748 20 ml Potassium Phosphate 15 mmol Mvi, Adult No.4 with Vit K 10 ml Trace ( Conc-1Ml/Dose) 1 ml In Amino Acids 5 %/Dextrose 20 % 1,000 ml @ 68 mls/hr IV .BY DURATION [facility] Rx#: [id number] Piperacillin-Tazobactam 3 100 .375 gm In Sodium Chloride 0.9% 100 ml @ 25 mls/hr IVPB Q8HR [facility] Rx# :[id number] Oral 830 Blood Product 310 Rc As-1 Unit 310 [id number] Output: Gastric Drainage 450 100 Urine 300 Stool 8 Other: Voiding Method Bedside Commode Toilet Bedpan Bedside Commode Diaper Bedpan # Voids 1 1 # Bowel Movements 1 - Labs CBC & Chem 7: 06/13/24 05:10 06/13/24 05:10 Labs: Abnormal Lab Results - Last 24 Hours (Table) 06/13/24 06/13/24 06/13/24 Range/Units 05:10 05:10 11:33 WBC 22.41 H (4.50-10.00) X 10*3/uL RBC 2.81 L (4.10-5.20) X 10*6/uL Hgb 7.9 L (12.0-15.0) g/dL Hct 25.2 L (37.2-46.3) % MCHC 31.3 L (32.0-37.0) g/dL RDW 16.1 H (11.5-14.5) % Plt Count 792 H (140-440) X 10*3/uL Immature Gran # 0.21 H (0.00-0.04) X 10*3/uL Neutrophils # 16.74 H (1.80-7.70) X 10*3/uL Monocytes # 1.66 H (0.20-1.00) X 10*3/uL Eosinophils # 0.39 H (0.04-0.35) X 10*3/uL NRBC/100 WBC Diff 0.02 H (0.00-0.01) X 10*3/uL Sodium 135 L (137-145) mmol/L Creatinine 0.50 L (0.52-1.04) mg/dL Glucose 108 H (74-99) mg/dL Calcium 8.1 L (8.4-10.2) mg/dL Phosphorus 4.6 H (2.5-4.5) mg/dL Crossmatch See Detail
[2024-06-14 07:17] LABS: African American GFR (CKD) >90 (>60 ml/min/1.73 sqM); Anion Gap 3 mmol/L; Blood Urea Nitrogen 18 mg/dL (7-17); Calcium 8.1 mg/dL (8.4-10.2); Carbon Dioxide 26 mmol/L (22-30); Chloride 106 mmol/L (98-107); Glucose 117 mg/dL (74-99); Non-African American GFR(CKD) >90 (>60 ml/min/1.73 sqM); Sodium 135 mmol/L (137-145)
[2024-06-14 07:27] LABS: Potassium 4.6 mmol/L (3.5-5.1)
[2024-06-14 07:28] LABS: Magnesium 2.1 mg/dL (1.6-2.3); Phosphorus 3.2 mg/dL (2.5-4.5)
[2024-06-14] MEDS ORDERED: DEXTROSE IV SCH (08:00)
[2024-06-14] MEDS ORDERED: PARENTERAL ELECTROLYTES IV SCH (08:00)
[2024-06-14] MEDS ORDERED: POTASSIUM CHLORIDE IV SCH (08:00)
[2024-06-14] MEDS ORDERED: AMINO ACIDS IV SCH (08:00)
[2024-06-14] MEDS: AMINO ACIDS IV SCH (09:09)
[2024-06-14] MEDS: DEXTROSE IV SCH (09:09)
[2024-06-14] MEDS: POTASSIUM CHLORIDE IV SCH (09:09)
[2024-06-14] MEDS: PARENTERAL ELECTROLYTES IV SCH (09:09)
[2024-06-14 09:48] LABS: Basophils # (A) 0.13 X 10*3/uL (0.00-0.10); Basophils % (A) 0.5 %; Eosinophils # (A) 0.37 X 10*3/uL (0.04-0.35); Eosinophils % (A) 1.5 %; Lymphocytes # (A) 3.26 X 10*3/uL (0.90-5.00); Lymphocytes % (A) 13.6 %; MCV 90.1 FL (80.0-97.0); Monocytes # (A) 1.92 X 10*3/uL (0.20-1.00); NRBC Per 100 WBC 0 X 10*3/uL (0.00-0.01); Neutrophils # (A) 18.13 X 10*3/uL (1.80-7.70); Neutrophils % (A) 75.4 %; Platelet Count 764 X 10*3/uL (140-440); RBC 3.22 X 10*6/uL (4.10-5.20); RDW 16.2 % (11.5-14.5); WBC 24.05 X 10*3/uL (4.50-10.00)
--- NOTE | 2024-06-14 11:25 | P.PN ---
Subjective Progress Note Date: 06/14/24 This is a 69-year-old female patient, I was asked to consult on this patient because of hypoxemia the patient is currently on 2 L of oxygen by nasal cannula. In summary, the patient is a case of a recently diagnosed colon mass and the patient was admitted to the hospital for an elective colectomy and splenectomy. The patient had a CAT scan of the abdomen pelvis that was done on 05/05/2024 showed descending colon mass that was quite suspicious for malignancy. Colonoscopy on 05/19/2024 showed a colonic mass and the level of 50 cm from the anal verge and the patient underwent a left colectomy and splenectomy on 06/02/2024. Postop, the patient was being followed up by the medical group and general surgery. She was encountering some nausea for which an NG tube was inserted and the patient was kept NPO. The patient was being hydrated with IV fluids. She remained afebrile and she demonstrated no evidence of any bleeding. Overnight, the patient desaturated and the patient was placed on 2 L of oxygen by nasal cannula. The white cell count is at 19.2 which is stable/improved and the patient's hemoglobin also has dropped down to 7.7 with a platelet count of 629 and the patient has a BUN of 3 with a creatinine of 0.4 and sodium levels at 136. Chest x-ray was done and showed NG tube being in good location. No acute cardiopulmonary process. Some minor atelectatic changes in the left lung base which are essentially improving. The patient is currently on D5 half-normal saline at rate of 50 cc an hour. The patient is on Zofran, Reglan and Dilaudid for pain control. The patient remains on Pepcid. No hemoptysis. No pleurisy. No reported aspiration. The surgical pathology was consistent with invasive moderate differentiated chronic adenocarcinoma with negative marginsAnd there w as no omental involvement. The spleen was negative for carcinoma. Tumor size was 8 cm in size and the lymph nodes were also negative. The patient is seen today June 09, 2024 in follow-up on the regular medical floor. She is currently sitting up in bed. Awake and alert in no acute distress. Maintaining O2 saturations in the 90s on 2 L/min per nasal cannula. Chest x-ray had revealed evidence of atelectasis. She is encouraged regarding the increased use of the incentive spirometer. She has D5 and a half normal saline at 50 mL/h. Nasogastric tube remains in place. White count 20.5. Hemoglobin 7.6. Platelets 670. Sodium 136. Potassium 3.4. Bicarb 27. BUN 7. Creatinine 0.4. Glucose 101. The patient is seen today June 10, 2024 in follow-up on the regular medical floor. She is currently resting comfortably in bed. Awake and alert in no acute distress. Maintaining good O2 saturations in the 90s on 2 L/min per nasal cannula. Encouraged the increased use of the incentive spirometer. She remains afebrile. Hemodynamically stable. White count 20.8. Hemoglobin 7.9. Platelets 764. Nasogastric tube remains in place. She is status post 1 unit of packed red blood cells this admission. She remains on D5 and half-normal saline at 50 mL/h. The patient is seen today June 11, 2024 in follow-up on the regular medical floor. She is sitting up in bed. Awake and alert in no acute distress. Denies any worsening shortness of breath, cough or congestion. She is maintaining good O2 saturations in the 90s on 2 L/min per nasal cannula. She is working well wi th the incentive spirometer. She is being nourished with TPN and lipids. She has D5 and half-normal saline at 50 mL/h. Her pain is well-managed. White count 19.9. Hemoglobin 7.9. Platelets 788. Sodium 133. Potassium 3.8. Bicarb 32. BUN 9. Creatinine 0.45. Glucose 116. The patient is seen today June 12, 2024 in follow-up on the regular medical floor. She is sitting up in a chair at the bedside. Awake and alert in no acute distress. Maintaining good O2 saturations in the 90s on 2 L per minute per nasal cannula. Working well with the incentive spirometer. On TPN at 68 mL/h. Receiving lipids every 72 hours. The patient had not had any bowel activity since surgery. Remains with nasogastric tube. CT scan of the abdomen and pelvis revealed postsurgical changes from left hemicolectomy without evidence of obstruction. Few fluid collections identified within the anterior lower abdomen and left paracolic gutter concerning for possible abscesses. Jejunal wall thickening within the left upper quadrant. Could represent postsurgical change with other etiologies such as infectious/inflammatory process. Ischemia not excluded. Small left pleural effusion. Sodium 134. Potassium 4.2. Bicarb 29. BUN 12. Creatinine 0.1. Glucose 113. The patient is seen today June 13, 2024 in follow-up on the regular medical floor. She is currently sitting up at the bedside. Awake and alert in no acute distress. Getting stronger each day. She is passing flatus. No bowel movements. She is maintaining O2 saturations in the high 90s on 2 L/min per nasal cannula. She is afebrile. Hemodynamically stable. Continues to work well with the incentive spirometer. She is status post 1 unit of packed red blood cells. Current hemoglobin 7.9. Platelets 792. White count 22.4. Sodium 135. Potassium 3.9. Bicarb 29. BUN 16. Creatinine 0.5. Glucose 108. Remains on TPN at 68 mL/h. Lipids every 72 hours. Antibiotics in the form of Zosyn. Heparin for DVT prophylaxis. The patient is seen today June 14, 2024 in follow-up on the regular medical floor. She is sitting up in a chair. Awake and alert in no acute distress. Denies any worsening shortness of breath, cough or congestion. She has been maintaining good O2 saturations in the 90s on room air. Her nasogastric tube has been removed. She is having bowel movements. She is tolerating a clear liquid diet. She has D5W with half-normal saline at 50 mL/h. Still receiving TPN at 68 mL/h. Lipids every 72 hours. Heparin for DVT prophylaxis. She remains on Zosyn. White count 24.0. Hemoglobin 9.0. Platelets 764. Sodium 135. Potassium 4.6. Bicarb 26. BUN 18. Creatinine 0.56. Glucose 117. Objective - Vital Signs Vital signs: Vital Signs Temp 98.4 F 06/14/24 07:31 Pulse 84 06/14/24 07:31 Resp 20 06/14/24 07:31 BP 103/65 06/14/24 07:31 Pulse Ox 95 06/14/24 07:31 FiO2 Intake & Output 06/13/24 06/14/24 06/14/24 18:59 06:59 18:59 Intake Total 1140 Output Total 100 8 Balance 1040 -8 Intake: Oral 830 Blood Product 310 Rc As-1 Unit 310 [id number] Output: Gastric Drainage 100 Stool 8 Other: Voiding Method Toilet Bedside Commode Bedpan # Voids 1 4 # Bowel Movements 1 - Exam GENERAL EXAM: Alert, 69-year-old female, up in a chair, on room air, comfortable in no apparent distress. HEAD: Normocephalic. EYES: Normal reaction of pupils, equal size. NOSE: Clear with pink turbinates. THROAT: No erythema or exudates. NECK: No masses, no JVD. CHEST: No chest wall deformity. LUNGS: Equal air entry with no crackles, wheeze, rhonchi or dullness. CVS: S1 and S2 normal with no audible murmur, regular rhythm. ABDOMEN: Abdominal binder in place. Dressing dry and intact. No guarding or rigidity. SPINE: No scoliosis or deformity SKIN: No rashes CENTRAL NERVOUS SYSTEM: No focal deficits, tone is normal in all 4 extremities. EXTREMITIES: SCDs in place. There is no peripheral edema. No clubbing, no cyanosis. Peripheral pulses are intact. - Labs CBC & Chem 7: 06/14/24 06:43 06/14/24 06:43 Labs: Abnormal Lab Results - Last 24 Hours (Table) 06/13/24 06/14/24 06/14/24 Range/Units 11:33 06:43 06:43 WBC 24.05 H (4.50-10.00) X 10*3/uL RBC 3.22 L (4.10-5.20) X 10*6/uL Hgb 9.0 L (12.0-15.0) g/dL Hct 29.0 L (37.2-46.3) % MCHC 31.0 L (32.0-37.0) g/dL RDW 16.2 H (11.5-14.5) % Plt Count 764 H (140-440) X 10*3/uL Immature Gran # 0.24 H (0.00-0.04) X 10*3/uL Neutrophils # 18.13 H (1.80-7.70) X 10*3/uL Monocytes # 1.92 H (0.20-1.00) X 10*3/uL Eosinophils # 0.37 H (0.04-0.35) X 10*3/uL Basophils # 0.13 H (0.00-0.10) X 10*3/uL Sodium 135 L (137-145) mmol/L BUN 18 H (7-17) mg/dL Glucose 117 H (74-99) mg/dL Calcium 8.1 L (8.4-10.2) mg/dL Crossmatch See Detail Assessment and Plan Assessment: Acute hypoxic respiratory failure, secondary to postop atelectatic changes. Not an unexpected outcome of surgery. No evidence of pneumonia. No reported aspiration. Recovered and on room air. Follow-up chest x-ray reveals no acute pulmonary process Adenocarcinoma of colonic mass and the patient underwent a left colectomy and splenectomy on June 02, 2024. Remains n.p.o. with nasogastric tube in place. Initiated on TPN and lipids Blood loss anemia and postop, the patient dropped her hemoglobin down to 6.9, re quiring a unit of packed RBC and the most recent hemoglobin is at 7.9 Leukocytosis, likely reactive postsplenectomy Obesity with a BMI of 34.9 Plan: The patient was seen and evaluated Labs and medications reviewed Working well with the incentive spirometer Stable and on room air Remains on Zosyn Tolerating a clear liquid diet Receiving TPN and lipids Heparin for DVT prophylaxis Increase her activity as tolerated This patient was seen independently by the pulmonary nurse practitioner address ing pulmonary issues I have personally seen and examined the patient, performed the documentation and the assessment and plan as written. Number of minutes spent on the visit: 25 Dictation was produced using [employer] dictation software. Please excuse any grammatical, word or spelling errors.
--- NOTE | 2024-06-14 16:05 | P.PN ---
Subjective Progress Note Date: 06/14/24 No acute events overnight. No nausea or emesis. Endorses flatus. No bowel movement overnight. Tolerating clear liquid diet without worsening abdominal pain or nausea. Ambulatory and voiding. No fevers or chills. No shortness of breath or chest pain. Objective - Vital Signs Vital signs: Vital Signs Temp 99.4 F 06/14/24 13:24 Pulse 99 06/14/24 13:58 Resp 20 06/14/24 13:58 BP 102/65 06/14/24 13:58 Pulse Ox 96 06/14/24 13:24 FiO2 Intake & Output 06/13/24 06/14/24 06/14/24 18:59 06:59 18:59 Intake Total 1140 Output Total 100 8 Balance 1040 -8 Intake: Oral 830 Blood Product 310 Rc As-1 Unit 310 [id number] Output: Gastric Drainage 100 Stool 8 Other: Voiding Method Toilet Bedside Commode Bedpan # Voids 1 4 # Bowel Movements 1 - Exam Gen: AxO, NAD Pulm: non-labored respirations Abd: soft, minimally tender around incisions. Non-distended. No guarding/rebound/rigidity Extrem: no edema seen - Labs CBC & Chem 7: 06/14/24 06:43 06/14/24 06:43 Labs: Abnormal Lab Results - Last 24 Hours (Table) 06/13/24 06/14/24 06/14/24 Range/Units 11:33 06:43 06:43 WBC 24.05 H (4.50-10.00) X 10*3/uL RBC 3.22 L (4.10-5.20) X 10*6/uL Hgb 9.0 L (12.0-15.0) g/dL Hct 29.0 L (37.2-46.3) % MCHC 31.0 L (32.0-37.0) g/dL RDW 16.2 H (11.5-14.5) % Plt Count 764 H (140-440) X 10*3/uL Immature Gran # 0.24 H (0.00-0.04) X 10*3/uL Neutrophils # 18.13 H (1.80-7.70) X 10*3/uL Monocytes # 1.92 H (0.20-1.00) X 10*3/uL Eosinophils # 0.37 H (0.04-0.35) X 10*3/uL Basophils # 0.13 H (0.00-0.10) X 10*3/uL Sodium 135 L (137-145) mmol/L BUN 18 H (7-17) mg/dL Glucose 117 H (74-99) mg/dL Calcium 8.1 L (8.4-10.2) mg/dL Crossmatch See Detail Assessment and Plan Assessment: Patient is a 69-year-old female who is status post left colectomy and splenectomy Plan: -Clear liquid diet as tolerated -IV fluid hydration -IV antibiotics -As needed pain and nausea control -DVT/GI prophylaxis -Encourage ambulation David Trimble M.D. General Surgery
[2024-06-14] MEDS: SODIUM CHLORIDE 0.9% 1,000 ML IV SCH (17:36)
[2024-06-14] MEDS: THIAMINE 100 MG TAB PO SCH (18:05)
--- NOTE | 2024-06-15 05:23 | PN ---
PROGRESS NOTE DATE OF SERVICE: 06/14/2024 SUBJECTIVE: This is a 69-year-old woman who was admitted after left colectomy and splenectomy, also had recently diagnosed colon mass also. NG tube is out. No chest pain. No palpitation. OBJECTIVE: VITAL SIGNS: Pulse is 108, blood pressure 134/80. Orthostatic changes present. CHEST: A few scattered rhonchi. ABDOMEN: Soft. LEGS: No edema. NERVOUS SYSTEM: Nonfocal. LABORATORY DATA: WBC 24. ASSESSMENT: 1. Status post left colectomy and splenectomy. 2. Recently diagnosed colon mass. 3. Orthostatic hypotension. 4. Acute blood loss anemia. 5. Leukocytosis likely reactive. 6. Acute hypoxic respiratory failure. 7. Ileus, possibly. 8. Multiple complex medical issues. RECOMMENDATIONS AND DISCUSSION: Recommend to continue current medications, continue symptomatic treatment. Otherwise, I recommend course of IV fluids. Continue to monitor orthostatic hypotension. Further recommendations to follow. MMMIKL / SIVANN: [id number] /
[2024-06-15 07:07] LABS: African American GFR (CKD) >90 (>60 ml/min/1.73 sqM); Anion Gap 7 mmol/L; Blood Urea Nitrogen 14 mg/dL (7-17); Calcium 8.3 mg/dL (8.4-10.2); Carbon Dioxide 19 mmol/L (22-30); Chloride 106 mmol/L (98-107); Glucose 113 mg/dL (74-99); Non-African American GFR(CKD) >90 (>60 ml/min/1.73 sqM); Phosphorus 2.8 mg/dL (2.5-4.5); Potassium 4.9 mmol/L (3.5-5.1); Sodium 132 mmol/L (137-145)
[2024-06-15] MEDS: FOLIC ACID 1 MG TAB PO SCH (08:28)
[2024-06-15] MEDS: MULTIVITAMINS, THERA 1 EACH TAB PO SCH (08:29)
[2024-06-15 09:52] LABS: Basophils # (A) 0.15 X 10*3/uL (0.00-0.10); Basophils % (A) 0.6 %; Eosinophils # (A) 0.34 X 10*3/uL (0.04-0.35); Eosinophils % (A) 1.4 %; HCT 28.1 % (37.2-46.3); HGB 8.8 g/dL (12.0-15.0); Lymphocytes # (A) 3.42 X 10*3/uL (0.90-5.00); Lymphocytes % (A) 14.4 %; MCH 28.4 pg (27.0-32.0); MCHC 31.3 g/dL (32.0-37.0); MCV 90.6 FL (80.0-97.0); Monocytes # (A) 2.21 X 10*3/uL (0.20-1.00); Monocytes % (A) 9.3 %; NRBC Per 100 WBC 0 X 10*3/uL (0.00-0.01); Neutrophils # (A) 17.46 X 10*3/uL (1.80-7.70); Neutrophils % (A) 73.5 %; Platelet Count 714 X 10*3/uL (140-440); RDW 16.2 % (11.5-14.5); WBC 23.77 X 10*3/uL (4.50-10.00)
--- NOTE | 2024-06-15 10:27 | P.PN ---
Subjective Progress Note Date: 06/15/24 This is a 69-year-old female patient, I was asked to consult on this patient because of hypoxemia the patient is currently on 2 L of oxygen by nasal cannula. In summary, the patient is a case of a recently diagnosed colon mass and the patient was admitted to the hospital for an elective colectomy and splenectomy. The patient had a CAT scan of the abdomen pelvis that was done on 05/05/2024 showed descending colon mass that was quite suspicious for malignancy. Colonoscopy on 05/19/2024 showed a colonic mass and the level of 50 cm from the anal verge and the patient underwent a left colectomy and splenectomy on 06/02/2024. Postop, the patient was being followed up by the medical group and general surgery. She was encountering some nausea for which an NG tube was inserted and the patient was kept NPO. The patient was being hydrated with IV fluids. She remained afebrile and she demonstrated no evidence of any bleeding. Overnight, the patient desaturated and the patient was placed on 2 L of oxygen by nasal cannula. The white cell count is at 19.2 which is stable/improved and the patient's hemoglobin also has dropped down to 7.7 with a platelet count of 629 and the patient has a BUN of 3 with a creatinine of 0.4 and sodium levels at 136. Chest x-ray was done and showed NG tube being in good location. No acute cardiopulmonary process. Some minor atelectatic changes in the left lung base which are essentially improving. The patient is currently on D5 half-normal saline at rate of 50 cc an hour. The patient is on Zofran, Reglan and Dilaudid for pain control. The patient remains on Pepcid. No hemoptysis. No pleurisy. No reported aspiration. The surgical pathology was consistent with invasive moderate differentiated chronic adenocarcinoma with negative marginsAnd there w as no omental involvement. The spleen was negative for carcinoma. Tumor size was 8 cm in size and the lymph nodes were also negative. The patient is seen today June 09, 2024 in follow-up on the regular medical floor. She is currently sitting up in bed. Awake and alert in no acute distress. Maintaining O2 saturations in the 90s on 2 L/min per nasal cannula. Chest x-ray had revealed evidence of atelectasis. She is encouraged regarding the increased use of the incentive spirometer. She has D5 and a half normal saline at 50 mL/h. Nasogastric tube remains in place. White count 20.5. Hemoglobin 7.6. Platelets 670. Sodium 136. Potassium 3.4. Bicarb 27. BUN 7. Creatinine 0.4. Glucose 101. The patient is seen today June 10, 2024 in follow-up on the regular medical floor. She is currently resting comfortably in bed. Awake and alert in no acute distress. Maintaining good O2 saturations in the 90s on 2 L/min per nasal cannula. Encouraged the increased use of the incentive spirometer. She remains afebrile. Hemodynamically stable. White count 20.8. Hemoglobin 7.9. Platelets 764. Nasogastric tube remains in place. She is status post 1 unit of packed red blood cells this admission. She remains on D5 and half-normal saline at 50 mL/h. The patient is seen today June 11, 2024 in follow-up on the regular medical floor. She is sitting up in bed. Awake and alert in no acute distress. Denies any worsening shortness of breath, cough or congestion. She is maintaining good O2 saturations in the 90s on 2 L/min per nasal cannula. She is working well wi th the incentive spirometer. She is being nourished with TPN and lipids. She has D5 and half-normal saline at 50 mL/h. Her pain is well-managed. White count 19.9. Hemoglobin 7.9. Platelets 788. Sodium 133. Potassium 3.8. Bicarb 32. BUN 9. Creatinine 0.45. Glucose 116. The patient is seen today June 12, 2024 in follow-up on the regular medical floor. She is sitting up in a chair at the bedside. Awake and alert in no acute distress. Maintaining good O2 saturations in the 90s on 2 L per minute per nasal cannula. Working well with the incentive spirometer. On TPN at 68 mL/h. Receiving lipids every 72 hours. The patient had not had any bowel activity since surgery. Remains with nasogastric tube. CT scan of the abdomen and pelvis revealed postsurgical changes from left hemicolectomy without evidence of obstruction. Few fluid collections identified within the anterior lower abdomen and left paracolic gutter concerning for possible abscesses. Jejunal wall thickening within the left upper quadrant. Could represent postsurgical change with other etiologies such as infectious/inflammatory process. Ischemia not excluded. Small left pleural effusion. Sodium 134. Potassium 4.2. Bicarb 29. BUN 12. Creatinine 0.1. Glucose 113. The patient is seen today June 13, 2024 in follow-up on the regular medical floor. She is currently sitting up at the bedside. Awake and alert in no acute distress. Getting stronger each day. She is passing flatus. No bowel movements. She is maintaining O2 saturations in the high 90s on 2 L/min per nasal cannula. She is afebrile. Hemodynamically stable. Continues to work well with the incentive spirometer. She is status post 1 unit of packed red blood cells. Current hemoglobin 7.9. Platelets 792. White count 22.4. Sodium 135. Potassium 3.9. Bicarb 29. BUN 16. Creatinine 0.5. Glucose 108. Remains on TPN at 68 mL/h. Lipids every 72 hours. Antibiotics in the form of Zosyn. Heparin for DVT prophylaxis. The patient is seen today June 14, 2024 in follow-up on the regular medical floor. She is sitting up in a chair. Awake and alert in no acute distress. Denies any worsening shortness of breath, cough or congestion. She has been maintaining good O2 saturations in the 90s on room air. Her nasogastric tube has been removed. She is having bowel movements. She is tolerating a clear liquid diet. She has D5W with half-normal saline at 50 mL/h. Still receiving TPN at 68 mL/h. Lipids every 72 hours. Heparin for DVT prophylaxis. She remains on Zosyn. White count 24.0. Hemoglobin 9.0. Platelets 764. Sodium 135. Potassium 4.6. Bicarb 26. BUN 18. Creatinine 0.56. Glucose 117. The patient is seen today June 15, 2024 in follow-up on the regular medical floor. She is awake and alert in no acute distress. Maintaining good O2 saturations in the 90s on room air. Currently sitting up in a chair. No worsening shortness of breath, cough or congestion. She states she is having bowel movements. She remains on TPN at 68 mL/h. Lipids every 72 hours. Heparin for DVT prophylaxis. Working well with the incentive spirometer. White count 23.7. Hemoglobin 8.8. Platelets 714. Sodium 132. Potassium 4.9. Bicarb 19. BUN 14. Creatinine 0.59. Glucose 113. Objective - Vital Signs Vital signs: Vital Signs Temp 98.3 F 06/15/24 07:39 Pulse 88 06/15/24 07:39 Resp 20 06/15/24 07:39 BP 125/64 06/15/24 07:39 Pulse Ox 95 06/15/24 07:39 FiO2 Intake & Output 06/14/24 06/15/24 06/15/24 18:59 06:59 18:59 Intake Total 1080 1030 Balance 1080 1030 Intake: Intake, IV Titration 1030 Amount Parenteral Electrolytes 1030 20 ml Potassium Chloride 20 meq In Amino Acids 5 % /Dextrose 20 % 1,000 ml @ 68 mls/hr IV .BY D[facility] Rx#: [id number] Oral 1080 Other: Voiding Method Toilet Bedside Commode Bedpan # Voids 5 5 2 - Exam GENERAL EXAM: Alert, pleasant 69-year-old female, up in a chair, on room air, in no apparent distress. HEAD: Normocephalic. EYES: Normal reaction of pupils, equal size. NOSE: Clear with pink turbinates. THROAT: No erythema or exudates. NECK: No masses, no JVD. CHEST: No chest wall deformity. LUNGS: Equal air entry with no crackles, wheeze, rhonchi or dullness. CVS: S1 and S2 normal with no audible murmur, regular rhythm. ABDOMEN: Abdominal binder in place. Dressing dry and intact. No guarding or rigidity. SPINE: No scoliosis or deformity SKIN: No rashes CENTRAL NERVOUS SYSTEM: No focal deficits, tone is normal in all 4 extremities. EXTREMITIES: SCDs in place. There is no peripheral edema. No clubbing, no cyanosis. Peripheral pulses are intact. - Labs CBC & Chem 7: 06/15/24 06:13 06/15/24 06:13 Labs: Abnormal Lab Results - Last 24 Hours (Table) 06/15/24 06/15/24 Range/Units 06:13 06:13 WBC 23.77 H (4.50-10.00) X 10*3/uL RBC 3.10 L (4.10-5.20) X 10*6/uL Hgb 8.8 L (12.0-15.0) g/dL Hct 28.1 L (37.2-46.3) % MCHC 31.3 L (32.0-37.0) g/dL RDW 16.2 H (11.5-14.5) % Plt Count 714 H (140-440) X 10*3/uL Immature Gran # 0.19 H (0.00-0.04) X 10*3/uL Neutrophils # 17.46 H (1.80-7.70) X 10*3/uL Monocytes # 2.21 H (0.20-1.00) X 10*3/uL Basophils # 0.15 H (0.00-0.10) X 10*3/uL Sodium 132 L (137-145) mmol/L Carbon Dioxide 19 L (22-30) mmol/L Glucose 113 H (74-99) mg/dL Calcium 8.3 L (8.4-10.2) mg/dL Assessment and Plan Assessment: Acute hypoxic respiratory failure, secondary to postop atelectatic changes. Not an unexpected outcome of surgery. No evidence of pneumonia. No reported aspiration. Recovered and on room air. Follow-up chest x-ray reveals no acute pulmonary process Adenocarcinoma of colonic mass and the patient underwent a left colectomy and splenectomy on June 02, 2024. Initiated on TPN and lipids. Tolerating clear liquids Blood loss anemia and postop, the patient dropped her hemoglobin down to 6.9, requiring a unit of packed RBC and the most recent hemoglobin is at 8.8 Leukocytosis, likely reactive postsplenectomy Obesity with a BMI of 34.9 Plan: The patient was seen and evaluated Labs and medications reviewed Working well with the incentive spirometer Stable and on room air Continue the current treatment plan Increase her activity as tolerated PICC line in place, remains on Zosyn Home once cleared by surgical services This patient was seen independently by the pulmonary nurse practitioner addressing pulmonary issues I have personally seen and examined the patient, performed the documentation and the assessment and plan as written. Number of minutes spent on the visit: 23 Dictation was produced using [employer] dictation software. Please excuse any grammatical, word or spelling errors.
--- NOTE | 2024-06-15 12:34 | P.DS ---
Providers Date of admission: 06/02/24 07:50 Expected date of discharge: 06/15/24 Attending physician: Mo Main Consults: 06/02/24 16:50 Consult Physician Routine Consulting Provider: Frank Baird Consult Reason/Comments: medical management Do you want consulting provider notified?: Yes 06/08/24 11:35 Consult Physician Routine Consulting Provider: Lux Matta Consult Reason/Comments: drop in O2 saturation, post op day 5 Do you want consulting provider notified?: Yes Primary care physician: Rachel Andujar [facility] Course: This a 69-year-old female who underwent left colectomy and splenectomy for advanced left colon cancer. Patient did well from surgery. Patient a prolonged ileus which resolved spontaneously. Patient was discharged home. Patient was discharged with nonnarcotic pain medication. She will follow-up in the office next week. Procedures: Left colectomy, splenectomy Patient Condition at Discharge: Good Plan - Discharge Summary Discharge Rx Participant: No New Discharge Prescriptions: No Action Acetaminophen Tab [Tylenol] 1,000 mg PO PRN PRN Reason: Pain Ibuprofen [Advil] 400 mg PO Q6HR PRN PRN Reason: Pain Laxative 1 dose PO DAILY PRN PRN Reason: Constipation Discharge Medication List Ibuprofen [Advil] 400 mg PO Q6HR PRN 05/30/24 [History] Laxative 1 dose PO DAILY PRN 05/30/24 [History] Acetaminophen Tab [Tylenol] 1,000 mg PO PRN 06/02/24 [History] Follow up Appointment(s)/Referral(s): [facility], [NON-STAFF] - 1-2 Days Mo Main MD [STAFF PHYSICIAN] - 1 Week Discharge Disposition: HOME SELF-CARE
[2024-06-15 13:21] VITALS: BP 116/69; PULSE 95; RESP 16; TEMP 98.4
--- NOTE | 2024-06-16 10:57 | PN ---
PROGRESS NOTE DATE OF SERVICE: 06/15/2024 SUBJECTIVE: This is a 69-year-old woman, who was admitted after left colectomy and splenectomy, improving significantly. No chest pain. No palpitations. No fever. OBJECTIVE: VITAL SIGNS: On exam, pulse is 88, blood pressure is 116/69, respirations 16. CHEST: Clear to auscultation. CARDIOVASCULAR: S1 and S2. ABDOMEN: Soft, status post surgery. LABORATORY DATA: WBC 23.77. ASSESSMENT: 1. Status post left colectomy and splenectomy. 2. Increased WBC, possibly reactive. 3. Recently diagnosed colon mass. 4. Orthostatic hypotension, improved. 5. Acute blood loss anemia. RECOMMENDATIONS AND DISCUSSION: In this 69-year-old woman with multiple complex medical issues, we will monitor the patient closely. I would recommend to resume the home medications and follow up with the primary physician closely. Otherwise, rest of the recommendations per surgery. Further recommendations will follow up labs in the outpatient setting. MMDENNY / SIVANN: [id number] /
--- NOTE | 2024-06-17 13:47 | P.OP ---
Date of Procedure: 06/02/24 Preoperative Diagnosis: Left colon cancer Postoperative Diagnosis: Large left colon cancer growing into retroperitoneum Procedure(s) Performed: Left colectomy with takedown of splenic flexure Partial omentectomy Splenectomy Anesthesia: BARRIE Surgeon: Mo Main Estimated Blood Loss (ml): 250 Pathology: other (Colon, spleen) Condition: stable Disposition: PACU Description of Procedure: The patient is placed on the operative table in the supine position. She received general endotracheal tube anesthesia. Her abdomen was then prepped and draped in the sterile fashion. The patient been placed in dorsal thigh position. The patient's abdomen palpated. There was a mass that could be palpated through the abdominal wall. The skin was sized in the midline. These electrocautery the subcu tissue divided. The fascia was then opened. The Bookwalter tract placed the wound. The patient had a left colon cancer located just below the splenic flexure. The tumor was quite large. It measured approximately 10 cm in diameter. At this point the incision was extended cep halad. The Bookwalter tractor placed in the wound and readjusted. The abs explored. The liver appeared normal. The stomach appeared normal. The small bowel appeared normal. The right colon and transverse colon appeared normal. The level hepatic flexure the tumor was palpated just below the hepatic flexure. At this point the left colon was mobilized. And then due to the proximity of the splenic flexure to the tumor. It was decided to remove the spleen as well. The left colon was mobilized off of the lateral left abdominal wall. A the colon appeared to have tumor which was invading the left retroperitoneal abdominal wall. This was dissected off of the abdominal wall. The tumor was extending into the retroperitoneum. The the tumor at the site completely replaced the abdominal wall. During the manipulation the colon was opened at the site. The splenic flexure was taken down with the LigaSure device. And then the colon was transected proximally and distally with a KESHAWN stapler. Then using the Enseal device the mesentery the bowel was divided. A portion omentum was caught up in the tumor as well. This was divided. The specimen sent to pathology. The short gastric vessels were then divided. And then the splenic hilum was clamped with a Floridalma clamp and then transected. The spleen was sent to pathology. The splenic hilum was ligated with 0 silk ties. This point the abdomen irrigated there is no bleeding seen. And then it was decided to perform a [id number] functional end-to-end stapled anastomosis between the proximal and distal colon. This was performed using a KESHAWN and TA staplers. 3-0 GI silk suture uses crotch stitch. The left retroperitoneal abdominal wall was biopsied and specimen sent to pathology. The eye was irrigated till being seen. The fascia closed looped #1 PDS suture. Skin was low lydia. Patient Toller procedure well. She was sent to recovery in stable condition.
== END 2024-06-15 14:08 | disposition home health service (06) | DRG 329 ==
LOC: 2ORMAIN 07:50 → 5NMEDONC 14:26
PROVIDERS: ADMIT Surgery; ATTEND Surgery
PROC: 07TP0ZZ Resection of Spleen, Open Approach (ICD-10-PCS; principal; 2024-06-02 09:50)
PROC: 07BB0ZX Excision of Mesenteric Lymphatic, Open Approach, Diagnostic (ICD-10-PCS; principal; 2024-06-02 09:50)
PROC: 0DTG0ZZ Resection of Left Large Intestine, Open Approach (ICD-10-PCS; principal; 2024-06-02 09:50)
PROC: 0DBU0ZZ Excision of Omentum, Open Approach (ICD-10-PCS; principal; 2024-06-02 09:50)
DX: C18.6 Malignant neoplasm of descending colon (principal); J96.01 Acute respiratory failure with hypoxia; D62 Acute posthemorrhagic anemia; J98.11 Atelectasis; K56.7 Ileus, unspecified; I83.90 Asymptomatic varicose veins of unspecified lower extremity; M19.90 Unspecified osteoarthritis, unspecified site; R00.0 Tachycardia, unspecified; D72.829 Elevated white blood cell count, unspecified; E66.9 Obesity, unspecified; E87.70 Fluid overload, unspecified; I95.1 Orthostatic hypotension; Z68.34 Body mass index [BMI] 34.0-34.9, adult; Z87.891 Personal history of nicotine dependence; Z86.74 Personal history of sudden cardiac arrest
CPT/HCPCS: 36573; 71045; 71046; 74176; 80048; 80053; 81001; 82040; 82330; 83735; 84100; 84478; 85025; 85610; 85730; 86850; 86870; 86880; 86900; 86901; 86920; 88305; 88307; 88309

== ENCOUNTER → 2024-07-11 | Day surgery (SDC) | payer MEDICARE ==
[~2024-07-11] MED LIST changes: -ACETAMINOPHEN TAB 500 MG TAB PO PRN; +HYDROmorphone 0.5 MG/0.5 ML SYRINGE IVP PRN; +LIDOCAINE 1% (10MG/ML) FOR IV START INTRADERMA PRN; +LIDOCAINE 1% INJ 10MG/ML (20 ML MDV) ONE; +MIDAZOLAM 2 MG/2 ML VIAL ONE; +PROPOFOL 10 MG/ML 20 ML VIAL IV ONE; +Pre Op ABX Message 1 EACH MISC MISCELLANE ONE; +ceFAZolin 1 GM/50 ML BAG (PMX) ONE; +droPERidol 5 MG/2 ML VIAL IVP ONE; +fentaNYL (PF) 50 MCG/ML 2 ML AMP ONE
[2024-07-11] MEDS: IV FLUID CONTINUATION 1,000 ML IV ONE (06:41)
[2024-07-11] MEDS: LACTATED RINGERS 1,000 ML IV SCH (07:04)
[2024-07-11] MEDS: ACETAMINOPHEN TAB 500 MG TAB PO PRN (07:05)
[2024-07-11] MEDS: DEXAMETHASONE SOD PHOSPHATE 4 MG/ML 1 ML VIAL IV ONE (07:05)
[2024-07-11] MEDS: HEPARIN SODIUM,PORCINE 5,000 UNIT/ML 1 ML VIAL SQ PRN (07:05)
[2024-07-11] MEDS: ONDANSETRON 4 MG/2 ML VIAL IVP ONE (07:05)
[2024-07-11 07:11] LABS: Basophils # (A) 0.1 k/uL (0-0.2); Basophils % (A) 1 %; Eosinophils # (A) 0.3 k/uL (0-0.7); Eosinophils % (A) 2 %; HCT 36.1 % (34.0-46.0); HGB 11.3 gm/dL (11.4-16.0); Hypochromasia Moderate; Lymphocytes # (A) 3.3 k/uL (1.0-4.8); Lymphocytes % (A) 21 %; MCH 27.6 pg (25.0-35.0); MCHC 31.2 g/dL (31.0-37.0); MCV 88.5 fL (80.0-100.0); Monocytes # (A) 0.8 k/uL (0-1.0); Monocytes % (A) 5 %; Neutrophils # (A) 11.5 k/uL (1.3-7.7); Neutrophils % (A) 71 %; Platelet Count 591 k/uL (150-450); RBC 4.07 m/uL (3.80-5.40); RDW 15.7 % (11.5-15.5); WBC 16.2 k/uL (3.8-10.6)
[2024-07-11] MEDS: IPRATROPIUM-ALBUTEROL 3 ML NEB INHALATION STA ×2 (07:11→09:38)
[2024-07-11] MEDS: HEPARIN SODIUM,PORCINE 100 UNIT/ML 5 ML VIAL IV ONE (07:21)
[2024-07-11] MEDS: IOPAMIDOL-370 100ML BTL MISCELLANE ONE ×2 (07:21)
[2024-07-11] MEDS: BUPIVACAINE (PF) 0.25% 30 ML VIAL SQ ONE ×2 (07:21→08:16)
[2024-07-11] MEDS: SODIUM CHLORIDE 0.9% 50 ML with ceFAZolin 2,000 MG IV ONE (07:50)
[2024-07-11 07:58] LABS: African American GFR (CKD) >90 (>60 ml/min/1.73 sqM); Anion Gap 5 mmol/L; Blood Urea Nitrogen 9 mg/dL (7-17); Calcium 9.2 mg/dL (8.4-10.2); Carbon Dioxide 24 mmol/L (22-30); Chloride 105 mmol/L (98-107); Non-African American GFR(CKD) >90 (>60 ml/min/1.73 sqM); Sodium 134 mmol/L (137-145)
[2024-07-11 08:06] LABS: Glucose 113 mg/dL (74-99); Potassium 5.5 mmol/L (3.5-5.1)
--- NOTE | 2024-07-11 08:24 | P.OP ---
Date of Procedure: 07/11/24 Preoperative Diagnosis: Colon cancer Postoperative Diagnosis: Colon cancer Procedure(s) Performed: Right subclavian Port-A-Cath 6 German Anesthesia: BARRIE Surgeon: Mo Main Pathology: none sent Condition: stable Disposition: PACU Description of Procedure: The patient was placed on the operating table in the supine position. The patient received IV sedation. The patient's chest was prepped and draped in the usual sterile fashion. A roll had been placed between the shoulder blades in a longitudinal fashion. After prepping and draping the skin was anesthetized 1% local Xylocaine. And then using the Seldinger technique the subclavian vein was cannulated. A wire was placed into the vein and fluoroscopy position the wire at the atrial caval junction. Next the dilator sheath was placed over top the wire and the wire was withdrawn. The catheter was positioned at the atriocaval position. The catheter was placed through the sheath after the dilator was withdrawn. The sheath was then withdrawn. Position of the catheter was confirmed with fluoroscopy. The Port-A-Cath was connected to the catheter. The Port-A-Cath was flushed with saline and then heparinized saline. The skin was closed interrupted 3-0 Monocryl suture. Dermabond was applied. Patient tolerated procedure well and was sent to recovery room stable condition.
[2024-07-11 08:32] VITALS: TEMP 96.8
--- NOTE | 2024-07-11 08:59 | XR ---
EXAMINATION TYPE: XR chest 1V portable DATE OF EXAM: 07/11/2024 8:46 AM COMPARISON: 06/12/2024 CLINICAL INDICATION: Female, 69 years old with history of Right subclavian Port-A-Cath, TECHNIQUE: XR chest 1V portable view(s) obtained. FINDINGS: The heart size is normal. The pulmonary vasculature is somewhat prominent. Mild diffuse volume overload may be present. This is slightly more focal in the left lower lobe. Atel ectasis and pneumonia left patient be considered. IMPRESSION: 1. Left lower lobe infiltrate. Correlate for atelectasis or pneumonia. 2. Some early volume overload may be present. [facility], , 07/11/2024 8:57 AM
--- NOTE | 2024-07-11 09:11 | FL ---
EXAMINATION TYPE: FL guided central line placemt DATE OF EXAM: 07/11/2024 8:30 AM COMPARISON: Pre Operative Images if available both CT/MRI or plain film CLINICAL INDICATION: Female, 69 years old with history of Port-A-Cath Insertion; TECHNIQUE: FL guided central line placemt, multiple fluoroscopic images provided for procedure. Total fluoroscopy time: 31.7 seconds Total submitted images to PACS: 2 DAP: 2.1665 mGym2 Gycm2 uGym2 cGycm2 or equivalent. FINDINGS: Fluoroscopic imaging for Port-A-Cath insertion no evidence for pneumothorax. Multilevel degeneration changes of the spine. IMPRESSION: 1. No evidence for intraoperative complication. 2. Please see the operative/procedural note for further details. [facility], , 07/11/2024 9:09 AM
[2024-07-11 10:02] VITALS: RESP 16
[2024-07-11 10:14] VITALS: BP 118/79; PULSE 97
== END | disposition home or self-care (01) ==
LOC: OR 06:15
PROVIDERS: ATTEND Surgery
DX: C18.9 Malignant neoplasm of colon, unspecified (principal); M19.90 Unspecified osteoarthritis, unspecified site; Z90.49 Acquired absence of other specified parts of digestive tract; Z87.891 Personal history of nicotine dependence; Z98.51 Tubal ligation status; Z98.890 Other specified postprocedural states
CPT/HCPCS: 80048; 85025; 77001; 71045; 36561; C1788; J2250; J1644; J1642; J1100; J2405; J0690 ×2; J2003; J3010; J2704; Q9967; J0665

== ENCOUNTER → 2024-08-18 | Outpatient (CLI) | payer MEDICARE ==
[2024-08-18 15:04] LABS: African American GFR (CKD) >90 (>60 ml/min/1.73 sqM); Blood Urea Nitrogen 7 mg/dL (7-17); Non-African American GFR(CKD) >90 (>60 ml/min/1.73 sqM)
--- NOTE | 2024-08-18 16:50 | CT ---
EXAMINATION TYPE: CT abdomen pelvis w con CT DLP: 752.70 mGycm, Automated exposure control for dose reduction was used. DATE OF EXAM: 08/18/2024 3:29 PM COMPARISON: CT abdomen pelvis 06/11/2024, 05/05/2024 CLINICAL INDICATION:Female, 69 years old with history of M54.59 R10.32 R1012; Back pain, bilateral fl ank pain, recent sx removing spleen and partial colon. Hx colon ca. TECHNIQUE: Standard CT of the abdomen and pelvis following the administration of 100 cc of Isovue 3 00 IV contrast material and oral contrast. Coronal and sagittal reformats were performed. FINDINGS: LOWER CHEST: Posterior dependent subsegmental atelectasis is noted. ABDOMEN LIVER: Unremarkable GALLBLADDER AND BILE DUCTS: Unremarkable. PANCREAS: Unremarkable. SPLEEN: Surgically absent. ADRENAL GLANDS: Unremarkable. KIDNEYS AND URETERS: No evidence of hydronephrosis or renal calculus. The kidneys enhance symmetrical ly. Contrast is demonstrated within both collecting systems on the delayed phase. PELVIS BLADDER: Unremarkable REPRODUCTIVE: Unremarkable. ABDOMEN & PELVIS STOMACH AND BOWEL: Stomach and duodenum are unremarkable. Enteric contrast reaches the small bowel. N o evidence of bowel obstruction. Postsurgical changes from partial colectomy. Anastomosis is demonstr ated involving the mid transverse colon with fluid collection abutting the anastomosis measuring up t o 3.7 cm (series 3, image [id number]). There is some trace gas within the collection. Within the left mid abdomen is a loop of small bowel with heterogenous enhancement (series 3, image 48). PERITONEUM: No evidence of pneumoperitoneum or free fluid. VASCULATURE: Mild atherosclerotic calcifications are present throughout the abdominal aorta and its b ranches. No evidence of aortic aneurysm. MUSCULOSKELETAL: No acute osseous abnormalities. No aggressive osseous lesion. Grade 1 anterolisthesi s of L4 on L5 without evidence of pars defects. Mild multilevel degenerative disc disease. DISH of th e thoracic spine. LYMPH NODES: No evidence for lymphadenopathy. SOFT TISSUE/ABDOMINAL WALL: Surgical changes in the midline anterior abdominal wall without organized fluid collection. IMPRESSION: 1. Postsurgical changes from partial colectomy. There is a fluid collection measuring up to 3.7 cm a butting the anastomosis concerning for possible contained leak/abscess. Other etiologies include post surgical oversewn appearance. Consider further evaluation with barium enema. 2. No adenopathy. 3. Inflammatory changes with mucosal hyperenhancement involving small bowel within the left midabdome n suggests an inflammatory/infectious process. [facility], , 08/18/2024 4:48 PM
== END | disposition home or self-care (01) ==
LOC: RADCTMAIN 13:23
PROVIDERS: ATTEND Family Medicine
DX: M54.59 Other low back pain (principal); Z90.49 Acquired absence of other specified parts of digestive tract; Z98.890 Other specified postprocedural states
CPT/HCPCS: 82565; 84520; 74177; 36415; Q9967

== ENCOUNTER 2024-09-23 10:04 | Inpatient (IN) | payer MEDICARE ==
--- NOTE | 2024-09-23 10:32 | ED ---
General Adult HPI - General Chief complaint: Abdominal Pain Stated complaint: abd pain Time Seen by Provider: 09/23/24 10:11 Source: patient, EMS, RN notes reviewed Mode of arrival: EMS - History of Present Illness Initial comments: 62-year-old female with history of colon cancer presents to the emergency department for evaluation of left-sided and mid abdominal pain. Patient states that this started about 4 days ago. She notes that it was worse on the left side at that time but over the past day has radiated to her mid abdomen. She states that it is a sharp stabbing pain. She also notes that it comes and waves about every 5 minutes lasting around 30 seconds at a time. She states that her last bowel movement was 3 days ago. Reports that she is is passing flatulence. She denies fever, chills. Admits to nausea and vomiting. - Related Data Home Medications Medication Instructions Recorded Confirmed Acetaminophen Tab [Tylenol Tab] 1,000 mg PO DAILY@1330 PRN 09/23/24 09/23/24 Acetaminophen Tab [Tylenol Tab] 500 mg PO BID PRN 09/23/24 09/23/24 Allergies Allergy/AdvReac Type Severity Reaction Status Date / Time No Known Allergies Allergy Verified 09/23/24 14:15 Review of Systems ROS Statement: Those systems with pertinent positive or pertinent negative responses have been documented in the HPI. ROS Other: All systems not noted in ROS Statement are negative. Past Medical History Past Medical History: Cancer, Hypertension, Osteoarthritis (OA) Additional Past Medical History / Comment(s): colon Ca-dx February 2024, intermittent bloating, constipation, intermittent HTN- does not take meds for it per patient, upper dentures- doesnt wear/left at home, last chemotherapy for her colon cancer was 08/18/24 per patient. 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 States has not had any anesthesia since then. pt states "No complications with colonoscopy April 2024 but b/p was high prior to colonoscopy." Past Psychological History: No Psychological Hx Reported Smoking Status: Former smoker Past Alcohol Use History: None Reported Past Drug Use History: None Reported - Past Family History Mother Family Medical History: No Reported History Additional Family Medical History / Comment(s): Father History Unknown: Yes Brother(s) History Unknown: Yes Sister(s) History Unknown: Yes General Exam Limitations: no limitations General appearance: alert, in no apparent distress Head exam: Present: atraumatic, normocephalic, normal inspection Eye exam: Present: normal appearance, PERRL, EOMI. Absent: scleral icterus, conjunctival injection, periorbital swelling ENT exam: Present: mucous membranes moist, other (Poor dentition) Neck exam: Present: normal inspection. Absent: tenderness, meningismus, lymphadenopathy Respiratory exam: Present: wheezes. Absent: respiratory distress, rales, rhonchi, stridor Cardiovascular Exam: Present: normal rhythm, tachycardia GI/Abdominal exam: Present: distended, tenderness (left lower abdomen), guarding. Absent: rebound, rigid, normal bowel sounds (high pitched bowel sounds) Back exam: Present: normal inspection Neurological exam: Present: alert, oriented X3 Psychiatric exam: Present: normal affect, normal mood Skin exam: Present: warm, dry, intact, normal color. Absent: rash Course Vital Signs 09/23/24 09/23/24 09/23/24 10:07 11:53 15:26 Temperature 98.6 F Pulse Rate 117 H 101 H 109 H Respiratory 20 16 18 Rate Blood Pressure 122/81 124/87 127/80 O2 Sat by Pulse 97 96 97 Oximetry Medical Decision Making - Medical Decision Making Was pt. sent in by a medical professional or institution (, PA, [employer], urgent care, hospital, or assisted...) When possible be specific @ -[No] Did you speak to anyone other than the patient for history (EMS, parent, family, police, friend...)? What history was obtained from this source @ -[EMS and patient has been provided to the history of this patient] Did you review nursing and triage notes (agree or disagree)? Why? @ -[I reviewed and agree with nursing and triage notes] Were old charts reviewed (outside hosp., previous admission, EMS record, old EKG, old radiological studies, urgent care reports/EKG's, assisted records)? Report findings @ -[No old charts were reviewed] Differential Diagnosis (chest pain, altered mental status, abdominal pain women, abdominal pain men, vaginal bleeding, weakness, fever, dyspnea, syncope, headache, dizziness, GI bleed, back pain, seizure, CVA, palpatations, mental health, musculoskeletal)? @ -[Differential Abdominal Pain Women: Appendicitis, Cholecystitis, diverticulosis, ischemic bowel, pancreatitis, hepatitis, UTI, gastroenteritis, AAA, incarcerated hernia, bowel obstruction, constipation, inflammatory bowel, hepatitis, peptic ulcer disease, splenic infarction, perforated viscus, vulvitis, ovarian torsion, PID, kidney stone, placenta abruption, this is not meant to be an all-inclusive list ] EKG interpreted by me (3pts min.). @ -EKG at 1105 shows sinus tachycardia rate 111, HI 138, QRS 94, QTQTc [id number] X-rays interpreted by me (1pt min.). @ -None done CT interpreted by me (1pt min.). @ -CT abdomen pelvis obtained reveals a small bowel obstruction in the mid ileum with some enhancement of the small bowel loops U/S interpreted by me (1pt. min.). @ -None done What testing was considered but not performed or refused? (CT, X-rays, U/S, labs)? Why? @ -None What meds were considered but not given or refused? Why? @ -None Did you discuss the management of the patient with other professionals (professionals i.e. , PA, [employer], lab, RT, psych nurse, manager social responsibility, restaurant service manager, teacher, immigration officer, manager rn case)? Give summary @ -Management discussed with surgery, Dr. Main who recommended n.p.o., NG tube, Zosyn Was smoking cessation discussed for >3mins.? @ -No Was critical care preformed (if so, how long)? @ -No Were there social determinants of health that impacted care today? How? (Homelessness, low income, unemployed, alcoholism, drug addiction, transportation, low edu. Level, literacy, decrease access to med. care, fdc, rehab)? @ -No Was there de-escalation of care discussed even if they declined (Discuss DNR or withdrawal of care, Hospice)? DNR status @ -No What co-morbidities impacted this encounter? (DM, HTN, Smoking, COPD, CAD, Cancer, CVA, ARF, Chemo, Hep., AIDS, mental health diagnosis, sleep apnea, morbid obesity)? @ -None Was patient admitted / discharged? Hospital course, mention meds given and route, prescriptions, significant lab abnormalities, going to OR and other pertinent info. @ -Admitted. Patient presented emergency department for evaluation of abdominal pain. Laboratory studies obtained revealing leukocytosis at 14.Hemoglobin 10.4 which is stable for the patient; CMP shows sodium 133, potassium 4.4, no significant lactic acidosis; UA shows no evidence of infectious process. CT of the abdomen shows small bowel obstruction in the mid ileum with some enhancement of the small bowel loops. The case was discussed with Dr. Main who is the patients surgeon who recommended n.p.o., NG tube, Zosyn. The patient was admitted with medical consultation. She was advised on findings. She is understanding agreeable with admission. Patient stable at time admission. Case discussed with Dr. Palma Undiagnosed new problem with uncertain prognosis? @ -No Drug Therapy requiring intensive monitoring for toxicity (Heparin, Nitro, Insulin, Cardizem)? @ -No Were any procedures done? @ -No Diagnosis/symptom? @ -Bowel obstruction Acute, or Chronic, or Acute on Chronic? @ -Acute Uncomplicated (without systemic symptoms) or Complicated (systemic symptoms)? @ -Uncomplicated Side effects of treatment? @ -No Exacerbation, Progression, or Severe Exacerbation? @ -No Poses a threat to life or bodily function? How? (Chest pain, [place], [place], pneumonia, PE, COPD, DKA, ARF, appy, cholecystitis, CVA, Diverticulitis, Homicidal, Suicidal, threat to staff... and all critical care pts) @ -No - Lab Data Result diagrams: 09/23/24 10:53 09/23/24 10:53 Lab Results 09/23/24 09/23/24 09/23/24 Range/Units 10:53 10:53 10:53 WBC 14.4 H (3.8-10.6) k/uL RBC 3.56 L (3.80-5.40) m/uL Hgb 10.4 L (11.4-16.0) gm/dL Hct 34.0 (34.0-46.0) % MCV 95.6 D (80.0-100.0) fL MCH 29.3 (25.0-35.0) pg MCHC 30.7 L (31.0-37.0) g/dL RDW 21.3 H (11.5-15.5) % Plt Count 462 H (150-450) k/uL MPV 8.4 Neutrophils % 78 % Lymphocytes % 13 % Monocytes % 6 % Eosinophils % 2 % Basophils % 0 % Neutrophils # 11.3 H (1.3-7.7) k/uL Lymphocytes # 1.9 (1.0-4.8) k/uL Monocytes # 0.8 (0-1.0) k/uL Eosinophils # 0.3 (0-0.7) k/uL Basophils # 0.0 (0-0.2) k/uL Hypochromasia Moderate Anisocytosis Moderate Macrocytosis Slight Sodium 133 L (137-145) mmol/L Potassium 4.4 (3.5-5.1) mmol/L Chloride 96 L (98-107) mmol/L Carbon Dioxide 23 (22-30) mmol/L Anion Gap 14 mmol/L BUN 9 (7-17) mg/dL Creatinine 0.45 L (0.52-1.04) mg/dL Est GFR (CKD-EPI)AfAm >90 (>60 ml/min/1.73 sqM) Est GFR (CKD-EPI)NonAf >90 (>60 ml/min/1.73 sqM) Glucose 99 (74-99) mg/dL Plasma Lactic Acid Franco 0.9 (0.7-2.0) mmol/L Calcium 9.2 (8.4-10.2) mg/dL Total Bilirubin 0.7 (0.2-1.3) mg/dL AST 20 (14-36) U/L ALT 7 (4-34) U/L Alkaline Phosphatase 107 (38-126) U/L Total Protein 6.9 (6.3-8.2) g/dL Albumin 3.8 (3.5-5.0) g/dL Amylase 38 (30-110) U/L Lipase 41 (23-300) U/L Urine Color Urine Appearance (Clear) Urine pH (5.0-8.0) Ur Specific [place] (1.001-1.035) Urine Protein (Negative) Urine Glucose (UA) (Negative) Urine Ketones (Negative) Urine Blood (Negative) Urine Nitrite (Negative) Urine Bilirubin (Negative) Urine Urobilinogen (<2.0) mg/dL Ur Leukocyte Esterase (Negative) 09/23/24 Range/Units 12:48 WBC (3.8-10.6) k/uL RBC (3.80-5.40) m/uL Hgb (11.4-16.0) gm/dL Hct (34.0-46.0) % MCV (80.0-100.0) fL MCH (25.0-35.0) pg MCHC (31.0-37.0) g/dL RDW (11.5-15.5) % Plt Count (150-450) k/uL MPV Neutrophils % % Lymphocytes % % Monocytes % % Eosinophils % % Basophils % % Neutrophils # (1.3-7.7) k/uL Lymphocytes # (1.0-4.8) k/uL Monocytes # (0-1.0) k/uL Eosinophils # (0-0.7) k/uL Basophils # (0-0.2) k/uL Hypochromasia Anisocytosis Macrocytosis Sodium (137-145) mmol/L Potassium (3.5-5.1) mmol/L Chloride (98-107) mmol/L Carbon Dioxide (22-30) mmol/L Anion Gap mmol/L BUN (7-17) mg/dL Creatinine (0.52-1.04) mg/dL Est GFR (CKD-EPI)AfAm (>60 ml/min/1.73 sqM) Est GFR (CKD-EPI)NonAf (>60 ml/min/1.73 sqM) Glucose (74-99) mg/dL Plasma Lactic Acid Franco (0.7-2.0) mmol/L Calcium (8.4-10.2) mg/dL Total Bilirubin (0.2-1.3) mg/dL AST (14-36) U/L ALT (4-34) U/L Alkaline Phosphatase (38-126) U/L Total Protein (6.3-8.2) g/dL Albumin (3.5-5.0) g/dL Amylase (30-110) U/L Lipase (23-300) U/L Urine Color Yellow Urine Appearance Clear (Clear) Urine pH 6.0 (5.0-8.0) Ur Specific [place] 1.047 H (1.001-1.035) Urine Protein Trace H (Negative) Urine Glucose (UA) Negative (Negative) Urine Ketones 2+ H (Negative) Urine Blood Negative (Negative) Urine Nitrite Negative (Negative) Urine Bilirubin Negative (Negative) Urine Urobilinogen <2.0 (<2.0) mg/dL Ur Leukocyte Esterase Negative (Negative) Disposition Clinical Impression: Bowel obstruction Disposition: ADMITTED IP TO THIS HOSP Condition: Stable Is patient prescribed a controlled substance at d/c from ED?: No
[2024-09-23] MEDS: ACETAMINOPHEN IV (For NPO) 1,000 MG in EMPTY BAG 1 BAG IVPB STA (11:06)
[2024-09-23 11:14] LABS: Anisocytosis Moderate; Basophils % (A) 0 %; Eosinophils # (A) 0.3 k/uL (0-0.7); Eosinophils % (A) 2 %; HGB 10.4 gm/dL (11.4-16.0); Hypochromasia Moderate; Lymphocytes # (A) 1.9 k/uL (1.0-4.8); Lymphocytes % (A) 13 %; MCH 29.3 pg (25.0-35.0); MCHC 30.7 g/dL (31.0-37.0); Macrocytosis Slight; Mean Platelet Volume 8.4; Monocytes # (A) 0.8 k/uL (0-1.0); Monocytes % (A) 6 %; Neutrophils # (A) 11.3 k/uL (1.3-7.7); Neutrophils % (A) 78 %; Platelet Count 462 k/uL (150-450); RBC 3.56 m/uL (3.80-5.40); RDW 21.3 % (11.5-15.5); WBC 14.4 k/uL (3.8-10.6)
[2024-09-23 11:38] LABS: MCV 95.6 fL (80.0-100.0)
[2024-09-23 11:41] LABS: ALT 7 U/L (4-34); AST 20 U/L (14-36); African American GFR (CKD) >90 (>60 ml/min/1.73 sqM); Albumin 3.8 g/dL (3.5-5.0); Alkaline Phosphatase 107 U/L (38-126); Amylase 38 U/L (30-110); Anion Gap 14 mmol/L; Blood Urea Nitrogen 9 mg/dL (7-17); Calcium 9.2 mg/dL (8.4-10.2); Carbon Dioxide 23 mmol/L (22-30); Chloride 96 mmol/L (98-107); Glucose 99 mg/dL (74-99); Lipase 41 U/L (23-300); Non-African American GFR(CKD) >90 (>60 ml/min/1.73 sqM); Potassium 4.4 mmol/L (3.5-5.1); Sodium 133 mmol/L (137-145); Total Bilirubin 0.7 mg/dL (0.2-1.3); Total Protein 6.9 g/dL (6.3-8.2)
[2024-09-23] MEDS: SODIUM CHLORIDE 0.9% 1,000 ML IV ONE (11:51)
--- NOTE | 2024-09-23 12:46 | CT ---
EXAMINATION TYPE: CT abdomen pelvis w con DATE OF EXAM: 09/23/2024 12:21 PM COMPARISON: 09/04/2024 CLINICAL INDICATION: Female, 69 years old with history of abdominal pain, lower abdominal pain. prior on pacs. hx of splenectomy and colon ca removed. TECHNIQUE: Axial images were obtained from above the diaphragm to the pubic rami in the axial plane a t 5 mm thick sections. Reconstructed images are reviewed on the computer in the coronal plane. CONTRAST: 100ml mL of Isovue 300. Study performed without Oral Contrast DLP: 1056 mGycm, Automated exposure control for dose reduction was used. FINDINGS: There are multiple dilated small bowel loops containing fluid. Some fluid containing colon is present. Slight increased density within the small bowel loops wall in the left mid abdomen is pre sent. Consider early ischemic change. Zone of transition is in the inferior left hemipelvis at the il eum. Partial small bowel obstruction likely present. Report was called cased discussed with the [facility] room physician by Dr. Herrera by telephone at the time of interpretation. Limited CT sections are obtained the lung bases. Lung bases are clear.. CT ABDOMEN: Liver: Normal Spleen: Surgically absent Pancreas: Normal Adrenal glands: The adrenal glands are normal. Gallbladder: Normal Kidneys: No masses are evident. No hydronephrosis is present. No cysts are present. Delayed images were obtained through the kidneys, which remain unremarkable. Aorta: Vascular calcification is within the aorta. Inferior vena cava: Normal. CT PELVIS: Appendix: What appears to be the appendix is normal. There may have been a prior appendectomy with th e partial colectomy. No suspicious dilated tubular structure or inflammatory changes are present. Urinary bladder: Normal. Genitourinary structures: Uterus appears normal. Adnexa are normal Osseous structures: No suspicious lytic or sclerotic lesions. Facet degenerative changes are present. IMPRESSION: 1. Small bowel obstruction within the mid ileum. There is some enhancement of some small bowel loops . Inflammatory change and ischemic change should be considered. [facility], , 09/23/2024 12:43 PM
[2024-09-23 13:15] LABS: Appearance,Urine Clear (Clear); Bilirubin,Urine Negative (Negative); Blood,Urine Negative (Negative); Color,Urine Yellow; Glucose,Urine (UA) Negative (Negative); Ketones,Urine 2+ (Negative); Leukocyte Esterase,Urine Negative (Negative); Nitrite,Urine Negative (Negative); Protein,Urine Trace (Negative); Urobilinogen,Urine <2.0 mg/dL (<2.0)
[2024-09-23] MEDS: LORazepam 2 MG/ML INJ IV STA (13:35)
[2024-09-23 13:37] LABS: Specific Gravity,Urine 1.047 (1.001-1.035)
[2024-09-23] MEDS: PIPERACILLIN-TAZOBACTAM 3.375 GM in SODIUM CHLORIDE 0.9% 100 ML IVPB STA (13:39)
[2024-09-23] MEDS ORDERED: NALOXONE 0.4 MG/ML 1 ML VIAL IV PRN (13:40)
--- NOTE | 2024-09-23 14:15 | P.GSHP ---
History of Present Illness H&P Date: 09/23/24 CHIEF COMPLAINT: Abdominal pain HISTORY OF PRESENT ILLNESS: This is a 69-year-old female who presented to the hospital with complaints of abdominal pain more on the left side of the abdomen x 4 days. Patient reports having nausea and vomiting yesterday. She reports her last bowel movement was 2 days ago. And prior to that she had been having diarrhea for about 2 weeks. Her last chemotherapy was 3 weeks ago per patient. Patient reports most of the pain is along the left lower quadrant of the abdomen radiates to the suprapubic area and up into the mid abdomen. She has a known history of colon cancer status post left colectomy in May 2024. Patient had a CAT scan completed showing evidence of a small bowel obstruction. She denies any prior history of small bowel obstruction. They are placing NG tube in the ER. Prior to coming into the ER patient reports a decreased appetite and fullness after eating only a small amount of food. 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 REVIEW OF SYSTEMS: CONSTITUTIONAL: Denies fever or chills. HEENT: Denies blurred vision, vision changes, or eye pain. Denies hemoptysis CARDIOVASCULAR: Denies chest pain or pressure. RESPIRATORY: No shortness of breath. GASTROINTESTINAL: See HPI for pertinent findings HEMATOLOGIC: Denies bleeding disorders. GENITOURINARY: Denies any blood in urine or increased urinary frequency. SKIN: Denies pruitis. Denies rash. PHYSICAL EXAM: VITAL SIGNS: Reviewed GENERAL: Well-developed in no acute distress. HEENT: No sclera icterus. Extraocular movements grossly intact. Moist buccal mucosa. Head is atraumatic, normocephalic. No nasal drainage. ABDOMEN: Distended. Firmness noted in the left lower quadrant of the abdomen. Tenderness with palpation left lower quadrant suprapubic area and mid abdomen. Patient is more tender on the left side of the abdomen. No rebound or guarding noted NEUROLOGIC: Alert and oriented. Cranial nerves II through XII grossly intact. LABORATORY DATA: WBC is 14.4 Hgb 10.4 platelets 462 Sodium is 133 potassium is 4.4 creatinine 0.45 Lactic acid 0.9 LFTs normal Lipase 41 IMAGING: CT scan abdomen pelvis reports small bowel obstruction within the mid ileum. There is some enhancement of small bowel loops. Inflammatory change and ischemic change should be considered. ASSESSMENT: 1. Small bowel obstruction within the mid ileum noted on CT scan 2. History of left colon cancer growing into the retroperitoneum status post left colectomy in May 2024 PLAN: -Place NG tube for decompression -Keep NG tube at low intermittent suction -Keep patient n.p.o. -Continue IV fluids -Continue antibiotics -Continue pain management -Medicine service consulted for medical management Physician Surveyor Rod Helper note has been reviewed by physician. Signing provider agrees with the documented findings, assessment, and plan of care. Past Medical History Past Medical History: Cancer, Hypertension, Osteoarthritis (OA) Additional Past Medical History / Comment(s): colon Ca-dx February 2024, intermittent bloating, constipation, intermittent HTN- does not take meds for it per patient, upper dentures- doesnt wear/left at home, last chemotherapy for her colon cancer was 08/18/24 per patient. 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 States has not had any anesthesia since then. pt states "No complications with colonoscopy April 2024 but b/p was high prior to colonoscopy." Past Psychological History: No Psychological Hx Reported Smoking Status: Former smoker Past Alcohol Use History: None Reported Past Drug Use History: None Reported - Past Family History Mother Family Medical History: No Reported History Additional Family Medical History / Comment(s): Father History Unknown: Yes Brother(s) History Unknown: Yes Sister(s) History Unknown: Yes Medications and Allergies Home Medications Medication Instructions Recorded Confirmed Type Acetaminophen Tab [Tylenol] 650 mg PO Q6HR PRN tab 09/08/24 Rx Allergies Allergy/AdvReac Type Severity Reaction Status Date / Time No Known Allergies Allergy Verified 09/23/24 10:13 Surgical - Exam Vital Signs Temp Pulse Resp BP Pulse Ox 98.6 F 117 H 20 122/81 97 09/23/24 10:07 09/23/24 10:07 09/23/24 10:07 09/23/24 10:07 09/23/24 10:07 Results - Labs 09/23/24 10:53 09/23/24 10:53 Abnormal Lab Results - Last 24 Hours (Table) 09/23/24 09/23/24 09/23/24 Range/Units 10:53 10:53 12:48 WBC 14.4 H (3.8-10.6) k/uL RBC 3.56 L (3.80-5.40) m/uL Hgb 10.4 L (11.4-16.0) gm/dL MCHC 30.7 L (31.0-37.0) g/dL RDW 21.3 H (11.5-15.5) % Plt Count 462 H (150-450) k/uL Neutrophils # 11.3 H (1.3-7.7) k/uL Sodium 133 L (137-145) mmol/L Chloride 96 L (98-107) mmol/L Creatinine 0.45 L (0.52-1.04) mg/dL Ur Specific [place] 1.047 H (1.001-1.035) Urine Protein Trace H (Negative) Urine Ketones 2+ H (Negative) Diabetes panel 09/23/24 Range/Units 10:53 Sodium 133 L (137-145) mmol/L Potassium 4.4 (3.5-5.1) mmol/L Chloride 96 L (98-107) mmol/L Carbon Dioxide 23 (22-30) mmol/L BUN 9 (7-17) mg/dL Creatinine 0.45 L (0.52-1.04) mg/dL Glucose 99 (74-99) mg/dL Calcium 9.2 (8.4-10.2) mg/dL AST 20 (14-36) U/L ALT 7 (4-34) U/L Alkaline Phosphatase 107 (38-126) U/L Total Protein 6.9 (6.3-8.2) g/dL Albumin 3.8 (3.5-5.0) g/dL Calcium panel 09/23/24 Range/Units 10:53 Calcium 9.2 (8.4-10.2) mg/dL Albumin 3.8 (3.5-5.0) g/dL Pituitary panel 09/23/24 Range/Units 10:53 Sodium 133 L (137-145) mmol/L Potassium 4.4 (3.5-5.1) mmol/L Chloride 96 L (98-107) mmol/L Carbon Dioxide 23 (22-30) mmol/L BUN 9 (7-17) mg/dL Creatinine 0.45 L (0.52-1.04) mg/dL Glucose 99 (74-99) mg/dL Calcium 9.2 (8.4-10.2) mg/dL Adrenal panel 09/23/24 Range/Units 10:53 Sodium 133 L (137-145) mmol/L Potassium 4.4 (3.5-5.1) mmol/L Chloride 96 L (98-107) mmol/L Carbon Dioxide 23 (22-30) mmol/L BUN 9 (7-17) mg/dL Creatinine 0.45 L (0.52-1.04) mg/dL Glucose 99 (74-99) mg/dL Calcium 9.2 (8.4-10.2) mg/dL Total Bilirubin 0.7 (0.2-1.3) mg/dL AST 20 (14-36) U/L ALT 7 (4-34) U/L Alkaline Phosphatase 107 (38-126) U/L Total Protein 6.9 (6.3-8.2) g/dL Albumin 3.8 (3.5-5.0) g/dL
--- NOTE | 2024-09-23 14:18 | XR ---
EXAMINATION TYPE: XR chest 1V portable DATE OF EXAM: 09/23/2024 2:10 PM COMPARISON: 09/03/2024 CLINICAL INDICATION: Female, 69 years old with history of NG placement, TECHNIQUE: XR chest 1V portable view(s) obtained. FINDINGS: The heart size is normal. The pulmonary vasculature is normal. The lungs are clear. Nasogastric tube transverses the thorax to the left upper quadrant of the abdomen. Port is present on the right with tip in the superior vena cava region. IMPRESSION: 1. No acute pulmonary process. 2. Nasogastric tube tip left upper quadrant abdomen [facility], , 09/23/2024 2:15 PM
[2024-09-23] MEDS: SODIUM CHLORIDE 0.9% 1,000 ML IV SCH (16:37)
[2024-09-23] MEDS: HYDROmorphone 0.5 MG/0.5 ML SYRINGE IVP PRN (16:37)
[2024-09-23] MEDS: PIPERACILLIN-TAZOBACTAM 3.375 GM in SODIUM CHLORIDE 0.9% 100 ML IVPB SCH (21:29)
--- NOTE | 2024-09-23 22:25 | P.CONS ---
History of Present Illness - History of Present Illness This is a pleasant 69 years old female with past medical history of multiple medical problems as below. She has history of colon cancer status post colectomy on chemotherapy and last dose of chemotherapy was about 3 weeks ago. Per documentation it was 08/18/2024. This has been followed by 2 weeks of diarrhea which was stopped over the last 2 days but again the patient did not have any bowel movement and she started having abdominal cramps in the left lower quadrant going to the middle of the abdomen about 10/10 however when I saw the patient she received pain medication and her pain was 0 at that time Patient vomited 3 times this morning mainly bile, no blood. Denies chest pain or dyspnea. No urinary complaint. No headache dizziness weakness numbness. No smoking alcohol or illicit drugs. At home she does not take medication except for Tylenol and little painkiller. She is hemodynamically stable, tachycardic with 101-107 Labs showing mild leukocytosis of 14.4 with hemoglobin 10.4, rest of BMP, LFT, lipase amylase and urine analysis are not concerning CT of the abdomen and pelvis showing small bowel obstruction with mid ileus with some enhancement of the bowel suspicious for inflammatory changes Chest x-ray is negative for acute process EKG showing sinus tachycardia at [address]-T changes Patient currently started on Zosyn and normal saline 100 mL/h Review of Systems Review of systems CONSTITUTIONAL: No fever, no malaise, no fatigue. HEENT: No recent visual problems or hearing problems. Denied any sore throat. CARDIOVASCULAR: No orthopnea, PND, no palpitations, no syncope. PULMONARY: No shortness of breath, no cough, no hemoptysis. -GASTROINTESTINAL: As above NEUROLOGICAL: No headaches, no weakness, no numbness. HEMATOLOGICAL: Denies any bleeding or petechiae. GENITOURINARY: Denies any burning micturition, frequency, or urgency. MUSCULOSKELETAL/RHEUMATOLOGICAL: Denies any joint pain, swelling, or any muscle pain. ENDOCRINE: Denies any polyuria or polydipsia. Past Medical History Past Medical History: Cancer, Hypertension, Osteoarthritis (OA) Additional Past Medical History / Comment(s): colon Ca-dx February 2024, in termittent bloating, constipation, intermittent HTN- does not take meds for it per patient, upper dentures- doesnt wear/left at home, last chemotherapy for her colon cancer was 08/18/24 per patient. 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 States has not had any anesthesia since then. pt states "No complications with colonoscopy April 2024 but b/p was high prior to colonoscopy." Past Psychological History: No Psychological Hx Reported Smoking Status: Former smoker Past Alcohol Use History: None Reported Past Drug Use History: None Reported - Past Family History Mother Family Medical History: No Reported History Additional Family Medical History / Comment(s): Father History Unknown: Yes Brother(s) History Unknown: Yes Sister(s) History Unknown: Yes Medications and Allergies Home Medications Medication Instructions Recorded Confirmed Type Acetaminophen Tab [Tylenol Tab] 1,000 mg PO DAILY@1330 PRN 09/23/24 09/23/24 History Acetaminophen Tab [Tylenol Tab] 500 mg PO BID PRN 09/23/24 09/23/24 History Allergies Allergy/AdvReac Type Severity Reaction Status Date / Time No Known Allergies Allergy Verified 09/23/24 14:15 Physical Exam Vitals: Vital Signs Temp Pulse Pulse Resp BP BP Pulse Ox 09/23/24 16:48 98.6 F 107 H 16 131/75 91 L 09/23/24 15:55 98.6 F 104 H 16 126/80 98 09/23/24 15:26 109 H 18 127/80 97 09/23/24 11:53 101 H 16 124/87 96 09/23/24 10:07 98.6 F 117 H 20 122/81 97 Intake and Output 09/23/24 09/23/24 09/23/24 06:59 14:59 22:59 Other: # Voids 1 Weight 73.028 kg GENERAL: The patient is alert and oriented x3, not in any acute distress. Well d eveloped, well nourished. HEENT: Pupils are round and equally reacting to light. EOMI. No scleral icterus. No conjunctival pallor. Normocephalic, atraumatic. No pharyngeal erythema. No thyromegaly. CARDIOVASCULAR: S1 and S2 present. No murmurs, rubs, or gallops. PULMONARY: Chest is clear to auscultation, no wheezing , no crackles. -ABDOMEN: Soft, left-sided abdominal tenderness r, nondistended, normoactive bowel sounds. No palpable organomegaly. MUSCULOSKELETAL: No joint swelling or deformity. EXTREMITIES: No cyanosis, clubbing, or pedal edema. NEUROLOGICAL: Gross neurological examination did not reveal any focal deficits. SKIN: No rashes. no petechiae. Results CBC & Chem 7: 09/23/24 10:53 09/23/24 10:53 Labs: Abnormal Lab Results - Last 24 Hours (Table) 09/23/24 09/23/24 09/23/24 Range/Units 10:53 10:53 12:48 WBC 14.4 H (3.8-10.6) k/uL RBC 3.56 L (3.80-5.40) m/uL Hgb 10.4 L (11.4-16.0) gm/dL MCHC 30.7 L (31.0-37.0) g/dL RDW 21.3 H (11.5-15.5) % Plt Count 462 H (150-450) k/uL Neutrophils # 11.3 H (1.3-7.7) k/uL Sodium 133 L (137-145) mmol/L Chloride 96 L (98-107) mmol/L Creatinine 0.45 L (0.52-1.04) mg/dL Ur Specific [place] 1.047 H (1.001-1.035) Urine Protein Trace H (Negative) Urine Ketones 2+ H (Negative) Assessment and Plan Assessment: Small bowel obstruction review of history of colon cancer History of left colon cancer status post colectomy and chemotherapy last chemotherapy 08/18/2024 Possible sepsis with leukocytosis and tachycardia. Plan: Agree with antibiotic currently on Zosyn Follow-up blood culture Continue with IV hydration of normal saline Monitor electrolytes and vitals Labs and medication were reviewed.. Continue same treatment. Continue with symptomatic treatment. Monitor labs and vitals. DVT and GI prophylaxis. Further recommendations as per clinical course of the patient DVT prophylaxis: Subcutaneous heparin GI Prophylaxis: Pepcid Prognosis is guarded
[2024-09-24] MEDS: HEPARIN SODIUM,PORCINE 5,000 UNIT/ML 1 ML VIAL SQ SCH (00:55)
[2024-09-24] MEDS: FAMOTIDINE 20 MG/2 ML VIAL IV SCH (00:55)
[2024-09-24] MEDS: MORPHINE SULFATE 4 MG/ML SYRINGE IV PRN (08:33)
[2024-09-24 08:57] LABS: BUN/Creat Ratio 14.75 Ratio (12.00-20.00); Blood Urea Nitrogen 5.9 mg/dL (9.0-27.0); Carbon Dioxide 22.4 mmol/L (21.6-31.8); Chloride 100 mmol/L (96-109); Glucose 85 mg/dL (70-110); Potassium 4.3 mmol/L (3.5-5.5); Sodium 136 mmol/L (135-145)
[2024-09-24 10:43] LABS: Erythrocyte Sedimentation Rate 89 mm/Hr (0-30)
[2024-09-24 12:21] LABS: Basophils # (A) 0.12 X 10*3/uL (0.00-0.10); Basophils % (A) 0.8 %; Eosinophils # (A) 0.26 X 10*3/uL (0.04-0.35); Eosinophils % (A) 1.8 %; HCT 30.7 % (37.2-46.3); HGB 9.4 g/dL (12.0-15.0); Lymphocytes # (A) 2.95 X 10*3/uL (0.90-5.00); Lymphocytes % (A) 20.6 %; MCHC 30.6 g/dL (32.0-37.0); MCV 94.8 FL (80.0-97.0); Mean Platelet Volume 11.9 FL (9.5-12.2); Monocytes # (A) 1.31 X 10*3/uL (0.20-1.00); Monocytes % (A) 9.1 %; NRBC Per 100 WBC 0 X 10*3/uL (0.00-0.01); Neutrophils # (A) 9.61 X 10*3/uL (1.80-7.70); Neutrophils % (A) 67.2 %; Platelet Count 450 X 10*3/uL (140-440); RBC 3.24 X 10*6/uL (4.10-5.20); RDW 24.5 % (11.5-14.5); WBC 14.32 X 10*3/uL (4.50-10.00)
--- NOTE | 2024-09-24 12:37 | P.PN ---
Subjective This is a pleasant 69 years old female with past medical history of multiple medical problems as below. She has history of colon cancer status post colectomy on chemotherapy and last dose of chemotherapy was about 3 weeks ago. Per documentation it was 08/18/2024. This has been followed by 2 weeks of diarrhea which was stopped over the last 2 days but again the patient did not have any bowel movement and she started having abdominal cramps in the left lower quadrant going to the middle of the abdomen about 10/10 however when I saw the patient she received pain medication and her pain was 0 at that time Patient vomited 3 times this morning mainly bile, no blood. Denies chest pain or dyspnea. No urinary complaint. No headache dizziness w eakness numbness. No smoking alcohol or illicit drugs. At home she does not take medication except for Tylenol and little painkiller. She is hemodynamically stable, tachycardic with 101-107 Labs showing mild leukocytosis of 14.4 with hemoglobin 10.4, rest of BMP, LFT, lipase amylase and urine analysis are not concerning CT of the abdomen and pelvis showing small bowel obstruction with mid ileus with some enhancement of the bowel suspicious for inflammatory changes Chest x-ray is negative for acute process EKG showing sinus tachycardia at [address]-T changes Patient currently started on Zosyn and normal saline 100 mL/h 09/24 Patient still has left lower quadrant abdominal pain and tenderness NG tube in place and she has dark bile-like secretions about 300 cc since yesterday No bowel movement not passing gas Still leukocytosis about 14.3. Hemoglobin 9.5. Her inflammatory markers is elevated with CRP 5.8 and ESR 89 Because of this we are going to consult GI service as CAT scan also was suspicious for inflammatory bowel disease Review of Systems Review of systems CONSTITUTIONAL: No fever, no malaise, no fatigue. HEENT: No recent visual problems or hearing problems. Denied any sore throat. CARDIOVASCULAR: No orthopnea, PND, no palpitations, no syncope. PULMONARY: No shortness of breath, no cough, no hemoptysis. NEUROLOGICAL: No headaches, no weakness, no numbness. HEMATOLOGICAL: Denies any bleeding or petechiae. GENITOURINARY: Denies any burning micturition, frequency, or urgency. Active Medications Generic Name Dose Route Start Last Admin Trade Name Freq PRN Reason Stop Dose Admin Famotidine 20 mg 09/23/24 22:30 09/24/24 09:59 Famotidine 20 Mg/2 Ml Vial IV 20 mg Q12HR GABRIEL Administration Heparin Sodium (Porcine) 5,000 unit 09/23/24 22:30 09/24/24 08:28 Heparin Sodium,Porcine 5,000 Unit/Ml 1 Ml Vial SQ 5,000 unit Q12HR GABRIEL Administration Hydromorphone HCl 0.5 mg 09/23/24 13:40 09/24/24 05:45 Hydromorphone 0.5 Mg/0.5 Ml Syringe IVP 0.5 mg Q3HR PRN Administration Moderate Pain (Scale 4 to 6) Sodium Chloride 1,000 mls @ 100 mls/hr 09/23/24 13:45 09/24/24 00:56 Saline 0.9% IV 100 mls/hr .Q10H GABRIEL Administration Piperacillin Sod/Tazobactam 100 mls @ 25 mls/hr 09/23/24 22:00 09/24/24 05:46 Sod 3.375 gm/ Sodium Chloride IVPB 25 mls/hr Q8H GABRIEL Administration Protocol Iopamidol 30 ml 09/24/24 11:27 Iopamidol Contrast (Oral Use) Vial PO 09/25/24 11:[address] Scan Morphine Sulfate 4 mg 09/23/24 13:40 09/24/24 08:33 Morphine Sulfate 4 Mg/Ml Syringe IV 4 mg Q4HR PRN Administration Severe Pain (Scale 7 to 10) Naloxone HCl 0.2 mg 09/23/24 13:40 Naloxone 0.4 Mg/Ml 1 Ml Vial IV Q2M PRN Opioid Reversal Ondansetron HCl 4 mg 09/23/24 14:18 Ondansetron 4 Mg/2 Ml Vial IVP Q6HR PRN Nausea And Vomiting Objective - Vital Signs Vital signs: Vital Signs Temp 98.5 F 09/24/24 11:48 Pulse 107 H 09/24/24 11:48 Resp 16 09/24/24 11:48 BP 136/83 09/24/24 11:48 Pulse Ox 94 L 09/24/24 11:48 FiO2 Intake & Output 09/23/24 09/24/24 09/24/24 18:59 06:59 18:59 Intake Total 120 Output Total 325 80 Balance -325 40 Weight 73.028 kg Intake: Oral 120 Output: Gastric Drainage 325 80 Other: Voiding Method Bedpan Bedpan Diaper Diaper # Voids 2 1 - Exam GENERAL: The patient is alert and oriented x3, not in any acute distress. Well developed, well nourished. HEENT: Pupils are round and equally reacting to light. EOMI. No scleral icterus. No conjunctival pallor. Normocephalic, atraumatic. No pharyngeal erythema. No thyromegaly. CARDIOVASCULAR: S1 and S2 present. No murmurs, rubs, or gallops. PULMONARY: Chest is clear to auscultation, no wheezing , no crackles. -ABDOMEN: Soft, left-sided abdominal tenderness more in the LLQ, nondistended, normoactive bowel sounds. No palpable organomegaly. MUSCULOSKELETAL: No joint swelling or deformity. EXTREMITIES: No cyanosis, clubbing, or pedal edema. NEUROLOGICAL: Gross neurological examination did not reveal any focal deficits. SKIN: No rashes. no petechiae. - Labs CBC & Chem 7: 09/24/24 04:49 09/24/24 04:49 Labs: Abnormal Lab Results - Last 24 Hours (Table) 09/23/24 09/24/24 09/24/24 Range/Units 12:48 00:58 04:49 WBC 14.32 H (4.50-10.00) X 10*3/uL RBC 3.24 L (4.10-5.20) X 10*6/uL Hgb 9.4 L (12.0-15.0) g/dL Hct 30.7 L (37.2-46.3) % MCHC 30.6 L (32.0-37.0) g/dL RDW 24.5 H (11.5-14.5) % Plt Count 450 H (140-440) X 10*3/uL Immature Gran # 0.07 H (0.00-0.04) X 10*3/uL Neutrophils # 9.61 H (1.80-7.70) X 10*3/uL Monocytes # 1.31 H (0.20-1.00) X 10*3/uL Basophils # 0.12 H (0.00-0.10) X 10*3/uL ESR 89 H (0-30) mm/Hr Anion Gap (4.00-12.00) mmol/L BUN (9.0-27.0) mg/dL Creatinine (0.6-1.5) mg/dL Plasma Lactic Acid [place] 0.6 L (0.7-2.0) mmol/L C-Reactive Protein (0.00-0.80) mg/dL Ur Specific [place] 1.047 H (1.001-1.035) Urine Protein Trace H (Negative) Urine Ketones 2+ H (Negative) 09/24/24 Range/Units 04:49 WBC (4.50-10.00) X 10*3/uL RBC (4.10-5.20) X 10*6/uL Hgb (12.0-15.0) g/dL Hct (37.2-46.3) % MCHC (32.0-37.0) g/dL RDW (11.5-14.5) % Plt Count (140-440) X 10*3/uL Immature Gran # (0.00-0.04) X 10*3/uL Neutrophils # (1.80-7.70) X 10*3/uL Monocytes # (0.20-1.00) X 10*3/uL Basophils # (0.00-0.10) X 10*3/uL ESR (0-30) mm/Hr Anion Gap 13.60 H (4.00-12.00) mmol/L BUN 5.9 L (9.0-27.0) mg/dL Creatinine 0.4 L (0.6-1.5) mg/dL Plasma Lactic Acid Franco (0.7-2.0) mmol/L C-Reactive Protein 5.80 H (0.00-0.80) mg/dL Ur Specific [place] (1.001-1.035) Urine Protein (Negative) Urine Ketones (Negative) Assessment and Plan Assessment: Small bowel obstruction review of history of colon cancer Elevated inflammatory markers, rule out inflammatory bowel disease History of left colon cancer status post colectomy and chemotherapy last chemotherapy 08/18/2024 Possible sepsis with leukocytosis and tachycardia. Plan: Agree with antibiotic currently on Zosyn Follow-up blood culture Consult GI team for rule out inflammatory bowel disease Continue with IV hydration of normal saline Monitor electrolytes and vitals Labs and medication were reviewed.. Continue same treatment. Continue with symptomatic treatment. Monitor labs and vitals. DVT and GI prophylaxis. Further recommendations as per clinical course of the patient DVT prophylaxis: Subcutaneous heparin GI Prophylaxis: Pepcid Prognosis is guarded
--- NOTE | 2024-09-24 13:10 | P.PN ---
Subjective Progress Note Date: 09/24/24 SURGICAL PROGRESS NOTE CHIEF COMPLAINT: SBO HISTORY OF PRESENT ILLNESS: Patient continues to report left-sided abdominal pain. She did vomit past the NG tube. NG tube with 325 mL output during the night and 200 output this morning. She is afebrile. She has been mildly tachycardic. WBC is 14.32 Hgb 9.4 PHYSICAL EXAM: VITAL SIGNS: Reviewed. GENERAL: Well-developed in no acute distress. ABDOMEN: Soft. Nondistended. Tenderness to palpation left side of abdomen and suprapubic area NEUROLOGIC: Alert and oriented. Cranial nerves II through XII grossly intact. ASSESSMENT: 1. Small bowel obstruction within the mid ileum noted on CT scan 2. History of left colon cancer growing into the retroperitoneum status post left colectomy in May 2024 PLAN: -Patient is tentatively scheduled for Exploratory laparotomy with lysis of adhesions tomorrow with Dr. Main -Repeat CT scan with oral contrast for further evaluation of the small bowel obstruction -Continue NG tube for decompression -Keep patient n.p.o. -Continue antibiotics -Continue IV fluids Physician Crystal Lapper note has been reviewed by physician. Signing provider agrees with the documented findings, assessment, and plan of care. Objective - Vital Signs Vital signs: Vital Signs Temp 98.5 F 09/24/24 11:48 Pulse 107 H 09/24/24 11:48 Resp 16 09/24/24 11:48 BP 136/83 09/24/24 11:48 Pulse Ox 94 L 09/24/24 11:48 FiO2 Intake & Output 09/23/24 09/24/24 09/24/24 18:59 06:59 18:59 Intake Total 120 Output Total 325 80 Balance -325 40 Weight 73.028 kg Intake: Oral 120 Output: Gastric Drainage 325 80 Other: Voiding Method Bedpan Bedpan Diaper Diaper # Voids 2 1 - Labs CBC & Chem 7: 09/24/24 04:49 09/24/24 04:49 Labs: Abnormal Lab Results - Last 24 Hours (Table) 09/23/24 09/24/24 09/24/24 Range/Units 12:48 00:58 04:49 WBC 14.32 H (4.50-10.00) X 10*3/uL RBC 3.24 L (4.10-5.20) X 10*6/uL Hgb 9.4 L (12.0-15.0) g/dL Hct 30.7 L (37.2-46.3) % MCHC 30.6 L (32.0-37.0) g/dL RDW 24.5 H (11.5-14.5) % Plt Count 450 H (140-440) X 10*3/uL Immature Gran # 0.07 H (0.00-0.04) X 10*3/uL Neutrophils # 9.61 H (1.80-7.70) X 10*3/uL Monocytes # 1.31 H (0.20-1.00) X 10*3/uL Basophils # 0.12 H (0.00-0.10) X 10*3/uL ESR 89 H (0-30) mm/Hr Anion Gap (4.00-12.00) mmol/L BUN (9.0-27.0) mg/dL Creatinine (0.6-1.5) mg/dL Plasma Lactic Acid Franco 0.6 L (0.7-2.0) mmol/L C-Reactive Protein (0.00-0.80) mg/dL Ur Specific [place] 1.047 H (1.001-1.035) Urine Protein Trace H (Negative) Urine Ketones 2+ H (Negative) 09/24/24 Range/Units 04:49 WBC (4.50-10.00) X 10*3/uL RBC (4.10-5.20) X 10*6/uL Hgb (12.0-15.0) g/dL Hct (37.2-46.3) % MCHC (32.0-37.0) g/dL RDW (11.5-14.5) % Plt Count (140-440) X 10*3/uL Immature Gran # (0.00-0.04) X 10*3/uL Neutrophils # (1.80-7.70) X 10*3/uL Monocytes # (0.20-1.00) X 10*3/uL Basophils # (0.00-0.10) X 10*3/uL ESR (0-30) mm/Hr Anion Gap 13.60 H (4.00-12.00) mmol/L BUN 5.9 L (9.0-27.0) mg/dL Creatinine 0.4 L (0.6-1.5) mg/dL Plasma Lactic Acid [place] (0.7-2.0) mmol/L C-Reactive Protein 5.80 H (0.00-0.80) mg/dL Ur Specific [place] (1.001-1.035) Urine Protein (Negative) Urine Ketones (Negative)
[2024-09-24] MEDS: ONDANSETRON 4 MG/2 ML VIAL IVP PRN (14:20)
[2024-09-24] MEDS: IOPAMIDOL CONTRAST (ORAL USE) VIAL PO PRN (15:07)
--- NOTE | 2024-09-24 15:32 | P.CONS ---
History of Present Illness - Reason for Consult Consult date: 09/24/24 Possible IBD, elevated inflammatory marker Requesting physician: Arnoldo E Sheet - Chief Complaint Abdominal pain, constipation - History of Present Illness This a pleasant 69-year-old female who had presented to the emergency department with complaints of abdominal pain in the lower left abdomen for the last 4 to 5 days duration. Having some nausea and vomiting. She has been having some ongoing constipation however she did have some loose stool about 2 days ago. She was diagnosed with colon cancer, adenocarcinoma in April 2024. At that time she underwent a colonoscopy on 05/19/[address] Radames Padilla with findings of a colon mass at the 50 cm christine. Otherwise colon was reported normal. She has undergone left colectomy in May 2024. Adenocarcinoma growing into the retroperitoneum she is undergone 3 rounds of chemotherapy last 1 being 3 weeks ago. She had a CT of the abdomen pelvis concerning for small bowel obstruction. She has NG tube in place. She has 300 mL of output. She is still having left lower abdominal pain. No bowel movement. She is admitted to general surgery. Primary medical team is on consultation and consulted gastroenterology secondary to patient having elevated CRP. She denies any previous history of inflammatory bowel disease no history of Crohn's disease or colitis. Again colonoscopy reported normal colon other than colon mass. Pathology from colectomy reports invasive moderately differentiated colonic adenocarcinoma with necrotic fibrous tissue involved in the abdominal wall. On admission patient with leukocytosis, WBC as high as 25.3 today it is 14.3 hemoglobin 9.4 platelet count 450,000 sed rate 89 CRP 5.8 patient has been afebrile. Review of Systems REVIEW OF SYSTEMS: CARDIOPULMONARY: No chest pain or shortness of breath. Gastrointestinal: Abdominal pain. Nausea, no vomiting. No hematemesis, coffee- ground emesis. No rectal bleeding, or melena. GENITOURINARY: No dysuria or hematuria. MUSCULOSKELETAL: Reports normal range of motion. SKIN: No rashes. No jaundice. ENDOCRINE: No chills, fevers. No excessive weight gain or loss. No polydipsia or polyuria. PSYCHIATRIC: Unremarkable. NEUROLOGY: No change in mental status. Denies dizziness, headache. ENT: Vision unremarkable. CONSTITUTIONAL: No recent weight loss. No fever, chills, night sweats. Past Medical History Past Medical History: Cancer, Hypertension, Osteoarthritis (OA) Additional Past Medical History / Comment(s): colon Ca-dx February 2024, intermittent bloating, constipation, intermittent HTN- does not take meds for it per patient, upper dentures- doesnt wear/left at home, last chemotherapy for her colon cancer was 08/18/24 per patient. 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 States has not had any anesthesia since then. pt states "No complications with colonoscopy April 2024 but b/p was high prior to colonoscopy." Past Psychological History: No Psychological Hx Reported Smoking Status: Former smoker Past Alcohol Use History: None Reported Past Drug Use History: None Reported - Past Family History Mother Family Medical History: No Reported History Additional Family Medical History / Comment(s): Father History Unknown: Yes Brother(s) History Unknown: Yes Sister(s) History Unknown: Yes Medications and Allergies Home Medications Medication Instructions Recorded Confirmed Type Acetaminophen Tab [Tylenol Tab] 1,000 mg PO DAILY@1330 PRN 09/23/24 09/23/24 History Acetaminophen Tab [Tylenol Tab] 500 mg PO BID PRN 09/23/24 09/23/24 History Allergies Allergy/AdvReac Type Severity Reaction Status Date / Time No Known Allergies Allergy Verified 09/23/24 14:15 Physical Exam Vitals: Vital Signs Temp Pulse Pulse Resp BP BP Pulse Ox 09/24/24 11:48 98.5 F 107 H 16 136/83 94 L 09/24/24 08:28 98.7 F 93 16 129/83 95 09/24/24 06:57 98.4 F 104 H 16 130/85 95 09/24/24 01:27 98.5 F 107 H 17 131/79 93 L 09/23/24 16:48 98.6 F 107 H 16 131/75 91 L 09/23/24 15:55 98.6 F 104 H 16 126/80 98 09/23/24 15:26 109 H 18 127/80 97 Intake and Output 09/23/24 09/24/24 09/24/24 22:59 06:59 14:59 Intake Total 120 Output Total 325 80 Balance -325 40 Intake: Oral 120 Output: Gastric Drainage 325 80 Other: Voiding Method Bedpan Bedpan Diaper Diaper # Voids 1 1 General appearance: The patient is alert, oriented, appears in no acute distress. HET: Head is normocephalic and atraumatic. Conjunctiva pink. Sclera anicteric. NG tube in place. Neck: Supple without lymphadenopathy. Trachea midline. Heart: Regular. Lungs: Equal expansion, normal respiratory effort. Abdomen: Soft, left lower abdominal tenderness, nondistended. Skin: No rashes. No jaundice. Extremities: Normal skin color and turgor. No pedal edema. Neurological: No focal deficits. Alert and oriented x3. Results CBC & Chem 7: 09/24/24 04:49 09/24/24 04:49 Labs: Abnormal Lab Results - Last 24 Hours (Table) 09/23/24 09/24/24 09/24/24 Range/Units 12:48 00:58 04:49 WBC 14.32 H (4.50-10.00) X 10*3/uL RBC 3.24 L (4.10-5.20) X 10*6/uL Hgb 9.4 L (12.0-15.0) g/dL Hct 30.7 L (37.2-46.3) % MCHC 30.6 L (32.0-37.0) g/dL RDW 24.5 H (11.5-14.5) % Plt Count 450 H (140-440) X 10*3/uL Immature Gran # 0.07 H (0.00-0.04) X 10*3/uL Neutrophils # 9.61 H (1.80-7.70) X 10*3/uL Monocytes # 1.31 H (0.20-1.00) X 10*3/uL Basophils # 0.12 H (0.00-0.10) X 10*3/uL ESR 89 H (0-30) mm/Hr Anion Gap (4.00-12.00) mmol/L BUN (9.0-27.0) mg/dL Creatinine (0.6-1.5) mg/dL Plasma Lactic Acid Franco 0.6 L (0.7-2.0) mmol/L C-Reactive Protein (0.00-0.80) mg/dL Ur Specific [place] 1.047 H (1.001-1.035) Urine Protein Trace H (Negative) Urine Ketones 2+ H (Negative) 09/24/24 Range/Units 04:49 WBC (4.50-10.00) X 10*3/uL RBC (4.10-5.20) X 10*6/uL Hgb (12.0-15.0) g/dL Hct (37.2-46.3) % MCHC (32.0-37.0) g/dL RDW (11.5-14.5) % Plt Count (140-440) X 10*3/uL Immature Gran # (0.00-0.04) X 10*3/uL Neutrophils # (1.80-7.70) X 10*3/uL Monocytes # (0.20-1.00) X 10*3/uL Basophils # (0.00-0.10) X 10*3/uL ESR (0-30) mm/Hr Anion Gap 13.60 H (4.00-12.00) mmol/L BUN 5.9 L (9.0-27.0) mg/dL Creatinine 0.4 L (0.6-1.5) mg/dL Plasma Lactic Acid Franco (0.7-2.0) mmol/L C-Reactive Protein 5.80 H (0.00-0.80) mg/dL Ur Specific [place] (1.001-1.035) Urine Protein (Negative) Urine Ketones (Negative) Comments: CT abdomen pelvis with contrast reports small bowel obstruction within the mid ileum. Some enhancement of some small bowel loops. Inflammatory change and ischemic change should be considered. Assessment and Plan (1) Abdominal pain Narrative/Plan: 69-year-old female with colon adenocarcinoma into the retroperitoneum diagnosed in April 2024 status post colonoscopy followed by left colectomy in May 2024 undergoing chemotherapy last treatment 3 weeks ago presented with abdominal pain left lower quadrant with small bowel obstruction. Leukocytosis on admission with some improvement. General surgery is following patient closely and patient is scheduled to undergo exploratory laparotomy. Case was discussed with general surgery and do not believe any concerns for inflammatory bowel disease and patient has no prior history of inflammatory bowel disease. Prior colonoscopy had normal colon other than colon mass noted with no reports of concern for inflammatory bowel disease. Inflammatory markers likely elevated secondary to cancer, obstruction and/or other possible etiology other than inflammatory bowel disease. Continue with recommendations from general surgery. No indication for workup from gastroenterology for IBD. Current Visit: No Status: Acute Code(s): R10.9 - UNSPECIFIED ABDOMINAL PAIN SNOMED Code(s): 23980115 (2) Bowel obstruction Current Visit: Yes Status: Acute Code(s): K56.609 - UNSP INTESTNL OBST, UNSP TO PARTIAL VERSUS COMPLETE OBST SNOMED Code(s): 53479176 (3) Colon cancer Current Visit: No Status: Acute Priority: High Code(s): C18.9 - MALIGNANT NEOPLASM OF COLON, UNSPECIFIED SNOMED Code(s): 435558817 (4) History of colectomy Current Visit: No Status: Acute Code(s): Z90.49 - ACQUIRED ABSENCE OF OTHER SPECIFIED PARTS OF DIGESTIVE TRACT SNOMED Code(s): 020757268 (5) Leukocytosis Current Visit: No Status: Acute Priority: Medium Code(s): D72.829 - ELEVATED WHITE BLOOD CELL COUNT, UNSPECIFIED SNOMED Code(s): 397848740 Plan: 1. Continue symptomatic and supportive care 2. Keep n.p.o. 3. Continue NG tube per recommendations from general surgery 4. Continue antibiotics as ordered 5. Patient is scheduled for exploratory laparotomy tomorrow No indication or recommendation for workup for inflammatory bowel disease. Patient had recent colonoscopy within the last 6 months with reported findings of normal colon other than colon mass which was biopsied and positive for adenocarcinoma. Inflammatory markers likely secondary to inflammatory response secondary to colon cancer, colon mass, and small bowel obstruction, possible infection in setting of of leukocytosis. Continue with further recommendations from general surgery. Thank you for this consultation, we will sign off at this time. Dr. Jf Crum I agree with the dictator's note, documented as a scribe by Nicol Eli.
[2024-09-24 16:54] VITALS: BMI 30.4
--- NOTE | 2024-09-24 22:41 | CT ---
EXAMINATION TYPE: CT abdomen pelvis wo con DATE OF EXAM: 09/24/2024 HISTORY: f/u bowel obstruction CT DLP: 394.9 mGycm. Automated Exposure Control for Dose Reduction was Utilized. TECHNIQUE: CT scan of the abdomen and pelvis is with oral but without IV contrast. COMPARISON: Prior CT one day earlier FINDINGS: Within the limitations of a non-contrast study, the following observations are made. LUNG BASES: Dependent opacity bilaterally redemonstrated favoring atelectasis. LIVER/GB: No significant abnormality is appreciated. PANCREAS: No significant abnormality is seen. SPLEEN: Spleen is not seen and presumed surgically absent. ADRENALS: No significant abnormality is seen. KIDNEYS: No renal stones or hydronephrosis is seen bilaterally. Contrast from recent CT is filling th e bladder. BOWEL: New nasogastric tube projects below diaphragm. Oral contrast extends to proximal jejunal leve l. Mildly distended stomach with air-fluid level. No suspicious dilatation of the duodenal sweep or p roximal jejunal loops. There are eventual more prominent fluid-filled small bowel loops in the left a bdomen. There are persistent abnormally dilated fluid-filled small bowel loops in the left abdomen an d pelvis with air-fluid levels. There is redemonstration of fluid in the right colon which is abnorma l finding. Surgical changes involving transverse colon in the midline of the mid abdomen are redemons trated. There is fluid prominence of the sigmoid rectal colon in the pelvis similar to prior. There a re the surgical sutures in the right midabdomen there is a collapsed bowel loop in the midline in the central lower abdomen redemonstrated. Fecal dilated small bowel loop in the left pelvis is present. Small bowel loops dilated up to 4.1 cm in the left abdomen. GENITAL ORGANS: No gross abnormality seen. LYMPH NODES: No greater than 1cm abdominal or pelvic lymph nodes are appreciated. OSSEOUS STRUCTURES: Slight grade 1 anterolisthesis L4 and L5. Multilevel facet arthropathy in the lum bar spine is seen. OTHER: Focus of subcutaneous gas anterior wall of the right upper pelvis axial image 66 is likely pro duct of interval subcutaneous medicine injection. IMPRESSION: 1. Persistent prominent fluid filled colonic loops with air-fluid levels suggests an underlying ileus and/or mild uncomplicated colitis. Correlate clinically. There is however also a component of a high -grade distal small bowel obstruction felt present as there are dilated small bowel loops along with a few collapsed small bowel loops in the lower abdomen noted. Suspect adhesions near the surgical talha stomosis in the mid abdomen. Consider surgical exploration. Consider short-term CT follow-up to asses s progression of contrast. [facility], , 09/24/2024 10:39 PM
[2024-09-25 06:57] LABS: Anisocytosis Moderate; Basophils % (A) 0 %; Eosinophils # (A) 0.4 k/uL (0-0.7); Eosinophils % (A) 3 %; HCT 30.9 % (34.0-46.0); HGB 9.3 gm/dL (11.4-16.0); Hypochromasia Moderate; Lymphocytes # (A) 2.2 k/uL (1.0-4.8); Lymphocytes % (A) 18 %; MCH 29.4 pg (25.0-35.0); MCHC 30.1 g/dL (31.0-37.0); MCV 97.9 fL (80.0-100.0); Macrocytosis Moderate; Mean Platelet Volume 8.7; Monocytes # (A) 0.8 k/uL (0-1.0); Monocytes % (A) 7 %; Neutrophils # (A) 8.3 k/uL (1.3-7.7); Neutrophils % (A) 70 %; Platelet Count 397 k/uL (150-450); RBC 3.16 m/uL (3.80-5.40); WBC 11.8 k/uL (3.8-10.6)
[2024-09-25 07:12] LABS: Glucose,Whole Blood 79 mg/dL (70-110)
[2024-09-25 07:36] LABS: African American GFR (CKD) >90 (>60 ml/min/1.73 sqM); Anion Gap 14 mmol/L; Blood Urea Nitrogen 3 mg/dL (7-17); Calcium 8.5 mg/dL (8.4-10.2); Carbon Dioxide 21 mmol/L (22-30); Chloride 99 mmol/L (98-107); Glucose 75 mg/dL (74-99); Non-African American GFR(CKD) >90 (>60 ml/min/1.73 sqM); Sodium 134 mmol/L (137-145)
[2024-09-25] MEDS: IV FLUID CONTINUATION 1,000 ML IV ONE ×2 (10:19→10:57)
[2024-09-25] MEDS: DEXAMETHASONE SOD PHOSPHATE 4 MG/ML 1 ML VIAL IVP STA (11:09)
[2024-09-25] MEDS ORDERED: MIDAZOLAM 2 MG/2 ML VIAL ONE (11:14)
[2024-09-25] MEDS ORDERED: NEOSTIGMINE 1 MG/ML 10 ML VIAL ONE (11:14)
[2024-09-25] MEDS ORDERED: HYDROmorphone (PF) 1 MG/ML ONE (11:14)
[2024-09-25] MEDS ORDERED: SUCCINYLCHOLINE CHLORIDE 200 MG/10 ML VIAL IV ONE (11:14)
[2024-09-25] MEDS ORDERED: fentaNYL (PF) 50 MCG/ML 2 ML AMP ONE (11:14)
[2024-09-25] MEDS ORDERED: GLYCOPYRROLATE 0.2 MG/ML 2 ML VIAL ONE (11:14)
[2024-09-25] MEDS: LACTATED RINGERS 1,000 ML BAG IV STA (11:14)
[2024-09-25] MEDS ORDERED: PROPOFOL 10 MG/ML 20 ML VIAL IV ONE (11:14)
[2024-09-25] MEDS ORDERED: ROCURONIUM 10 MG/ML (5 ML VIAL) IV ONE ×2 (11:14)
[2024-09-25] MEDS ORDERED: PHENYLEPHRINE 10 MG/ML VIAL ONE (11:14)
[2024-09-25] MEDS ORDERED: LIDOCAINE 1% INJ 10MG/ML (20 ML MDV) ONE (11:14)
--- NOTE | 2024-09-25 13:03 | P.OP ---
Date of Procedure: 09/25/24 Preoperative Diagnosis: Small bowel obstruction Postoperative Diagnosis: Small bowel obstruction S Enlarging left retroperitoneal tumor growing in the small bowel causing frozen abdomen and complete small bowel obstruction Procedure(s) Performed: Exploratory laparotomy Small bowel resection Retroperitoneal biopsy Anesthesia: BARRIE Surgeon: Mo Main Estimated Blood Loss (ml): 50 Pathology: other (Retroperitoneal mass, small bowel) Condition: stable Disposition: PACU Description of Procedure: The patient is placed on the op table in the supine position. He was she received general NG tube anesthesia. Her abdomen was prepped and draped you sterile fashion. The abdomen was entered through the midline. The skin was divided along the midline scar. These electrocautery the abdominal wall was divided. There were adhesions to the intra-abdominal wall. These were lysed with sharp dissection. The Bookwalter tract placed the wound. The abs explored. Patient had mass palpated on the left retroperitoneal abdominal wall. The bowel appeared to be densely adhesed to the mass. During the dissection of the small bowel off the mass an enterotomy was made. The small bowel was resected en evens. And then the biopsy of the mass was performed a specimen sent to pathology. At this point the bowel was examined. The bowel appeared to be frozen with tumor. There was evidence of his large retroperitoneal mass growing into the small bowel. At this point I broke scrub and talk to the in the consultation room. The outcome of the patient's surgery was quite poor. The elected to have comfort care measures performed. I discussed with him that she would remain intubated and in the ICU and then they would be a terminal wean. Patient's wanted comfort care measures to be performed. This point due to comfort me comfort care measures measures being started the procedure was terminated. The patient's bowel was left unconnected. The abs irrigated. The fascia was closed looped #1 PDS suture. Skin was low lydia. Patient was sent to recovery room in stable condition. Patient will arrive in the recovery room and have the see her before comfort care measures are performed.
[2024-09-25] MEDS: MORPHINE SULFATE 100 MG in SODIUM CHLORIDE 0.9% 90 ML IV SCH (13:48)
[2024-09-25] MEDS: LORazepam 2 MG/ML INJ IV PRN (14:07)
[2024-09-25 15:10] VITALS: BP 123/81
[2024-09-25] MEDS ORDERED: LORazepam 2 MG/ML INJ IV PRN (17:13)
--- NOTE | 2024-09-25 19:02 | P.PN ---
Subjective This is a pleasant 69 years old female with past medical history of multiple medical problems as below. She has history of colon cancer status post colectomy on chemotherapy and last dose of chemotherapy was about 3 weeks ago. Per documentation it was 08/18/2024. This has been followed by 2 weeks of diarrhea which was stopped over the last 2 days but again the patient did not have any bowel movement and she started having abdominal cramps in the left lower quadrant going to the middle of the abdomen about 10/10 however when I saw the patient she received pain medication and her pain was 0 at that time Patient vomited 3 times this morning mainly bile, no blood. Denies chest pain or dyspnea. No urinary complaint. No headache dizziness w eakness numbness. No smoking alcohol or illicit drugs. At home she does not take medication except for Tylenol and little painkiller. She is hemodynamically stable, tachycardic with 101-107 Labs showing mild leukocytosis of 14.4 with hemoglobin 10.4, rest of BMP, LFT, lipase amylase and urine analysis are not concerning CT of the abdomen and pelvis showing small bowel obstruction with mid ileus with some enhancement of the bowel suspicious for inflammatory changes Chest x-ray is negative for acute process EKG showing sinus tachycardia at [address]-T changes Patient currently started on Zosyn and normal saline 100 mL/h 09/24 Patient still has left lower quadrant abdominal pain and tenderness NG tube in place and she has dark bile-like secretions about 300 cc since yesterday No bowel movement not passing gas Still leukocytosis about 14.3. Hemoglobin 9.5. Her inflammatory markers is elevated with CRP 5.8 and ESR 89 Because of this we are going to consult GI service as CAT scan also was suspicious for inflammatory bowel disease 09/25 Patient had surgery for her small bowel obstruction today. 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 The prognosis of these findings was extremely poor that patient was made comfort care immediately after surgery. [place] multiple family members at bedside Pain medication with morphine and Ativan 2 mg every 4 hours was provided for comfort measures. Prognosis is extremely poor Objective - Vital Signs Vital signs: Vital Signs Temp 98.2 F 09/25/24 12:29 Pulse 99 09/25/24 13:29 Resp 16 09/25/24 13:29 BP 114/75 09/25/24 13:29 Pulse Ox 100 09/25/24 13:29 FiO2 15 09/25/24 13:29 Intake & Output 09/24/24 09/25/24 09/25/24 18:59 06:59 18:59 Intake Total 480 1400 Output Total 880 251 Balance -400 1149 Weight 73.028 kg 73.028 kg Intake: IV 1400 Oral 480 Output: Gastric Drainage 880 Urine 201 Estimated Blood Loss 50 Other: Voiding Method Bedpan Bedpan Diaper # Voids 5 1 - Exam GENERAL: The patient is alert and oriented x3, not in any acute distress. Well developed, well nourished. HEENT: Pupils are round and equally reacting to light. EOMI. No scleral icterus. No conjunctival pallor. Normocephalic, atraumatic. No pharyngeal erythema. No thyromegaly. CARDIOVASCULAR: S1 and S2 present. No murmurs, rubs, or gallops. PULMONARY: Chest is clear to auscultation, no wheezing , no crackles. -ABDOMEN: Soft, left-sided abdominal tenderness more in the LLQ, nondistended, normoactive bowel sounds. No palpable organomegaly. MUSCULOSKELETAL: No joint swelling or deformity. EXTREMITIES: No cyanosis, clubbing, or pedal edema. NEUROLOGICAL: Gross neurological examination did not reveal any focal deficits. SKIN: No rashes. no petechiae. - Labs CBC & Chem 7: 09/25/24 06:11 09/25/24 06:11 Labs: Abnormal Lab Results - Last 24 Hours (Table) 09/25/24 09/25/24 Range/Units 06:11 06:11 WBC 11.8 H (3.8-10.6) k/uL RBC 3.16 L (3.80-5.40) m/uL Hgb 9.3 L (11.4-16.0) gm/dL Hct 30.9 L (34.0-46.0) % MCHC 30.1 L (31.0-37.0) g/dL RDW 21.0 H (11.5-15.5) % Neutrophils # 8.3 H (1.3-7.7) k/uL Sodium 134 L (137-145) mmol/L Carbon Dioxide 21 L (22-30) mmol/L BUN 3 L (7-17) mg/dL Creatinine 0.47 L (0.52-1.04) mg/dL Microbiology - Last 24 Hours (Table) 09/23/24 13:32 Blood Culture - Preliminary Blood Assessment and Plan Assessment: Small bowel obstruction review of history of colon cancer. Surgery found large retroperitoneal mass extending into the small bowel which is a frozen. Elevated inflammatory markers, rule out inflammatory bowel disease History of left colon cancer status post colectomy and chemotherapy last chemotherapy 08/18/2024 Possible sepsis with leukocytosis and tachycardia. Plan: Prognosis extremely poor Patient family decided comfort care measures which is very appropriate Give morphine and Ativan to keep the patient comfortable Labs and medication were reviewed.. Continue same treatment. Continue with symptomatic treatment. Monitor labs and vitals. DVT and GI prophylaxis. Further recommendations as per clinical course of the patient DVT prophylaxis: Subcutaneous heparin GI Prophylaxis: Pepcid Prognosis is guarded
--- NOTE | 2024-09-26 07:43 | P.PN ---
Subjective This is a pleasant 69 years old female with past medical history of multiple medical problems as below. She has history of colon cancer status post colectomy on chemotherapy and last dose of chemotherapy was about 3 weeks ago. Per documentation it was 08/18/2024. This has been followed by 2 weeks of diarrhea which was stopped over the last 2 days but again the patient did not have any bowel movement and she started having abdominal cramps in the left lower quadrant going to the middle of the abdomen about 10/10 however when I saw the patient she received pain medication and her pain was 0 at that time Patient vomited 3 times this morning mainly bile, no blood. Denies chest pain or dyspnea. No urinary complaint. No headache dizziness w eakness numbness. No smoking alcohol or illicit drugs. At home she does not take medication except for Tylenol and little painkiller. She is hemodynamically stable, tachycardic with 101-107 Labs showing mild leukocytosis of 14.4 with hemoglobin 10.4, rest of BMP, LFT, lipase amylase and urine analysis are not concerning CT of the abdomen and pelvis showing small bowel obstruction with mid ileus with some enhancement of the bowel suspicious for inflammatory changes Chest x-ray is negative for acute process EKG showing sinus tachycardia at [address]-T changes Patient currently started on Zosyn and normal saline 100 mL/h 09/24 Patient still has left lower quadrant abdominal pain and tenderness NG tube in place and she has dark bile-like secretions about 300 cc since yesterday No bowel movement not passing gas Still leukocytosis about 14.3. Hemoglobin 9.5. Her inflammatory markers is elevated with CRP 5.8 and ESR 89 Because of this we are going to consult GI service as CAT scan also was suspicious for inflammatory bowel disease 09/25 Patient had surgery for her small bowel obstruction today. 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 The prognosis of these findings was extremely poor that patient was made comfort care immediately after surgery. [place] multiple family members at bedside Pain medication with morphine and Ativan 2 mg every 4 hours was provided for comfort measures. Prognosis is extremely poor 09/26 Family yesterday decided for comfort care measures Patient currently looks comfortable on Ativan 2 mg and morphine. As per family at bedside patient does not need further medication for now Objective - Vital Signs Vital signs: Vital Signs Temp 99.5 F 09/26/24 06:28 Pulse 137 H 09/26/24 06:04 Resp 12 09/26/24 01:38 BP 114/75 09/25/24 13:29 Pulse Ox 97 09/26/24 06:04 FiO2 15 09/25/24 13:29 Intake & Output 09/25/24 09/26/24 09/26/24 18:59 06:59 18:59 Intake Total 1500 0 Output Total 251 250 Balance 1249 -250 Weight 73.028 kg Intake: IV 1400 Intake, IV Titration 100 Amount Piperacillin-Tazobactam 3 100 .375 gm In Sodium Chloride 0.9% 100 ml @ 25 mls/hr IVPB Q8H [facility] Rx#: [id number] Oral 0 Output: Gastric Drainage 200 Urine 201 50 Estimated Blood Loss 50 Other: Voiding Method Bedpan Indwelling Catheter - Exam GENERAL: The patient is obtund, NG tube in place. HEENT: Pupils are round and equally reacting to light. EOMI. No scleral icterus. No conjunctival pallor. Normocephalic, atraumatic. No pharyngeal erythema. No thyromegaly. CARDIOVASCULAR: S1 and S2 present. No murmurs, rubs, or gallops. PULMONARY: Chest is clear to auscultation, no wheezing , no crackles. -ABDOMEN: Soft, left-sided abdominal tenderness more in the LLQ, nondistended, normoactive bowel sounds. No palpable organomegaly. MUSCULOSKELETAL: No joint swelling or deformity. EXTREMITIES: No cyanosis, clubbing, or pedal edema. NEUROLOGICAL: Gross neurological examination did not reveal any focal deficits. SKIN: No rashes. no petechiae. - Labs CBC & Chem 7: 09/25/24 06:11 09/25/24 06:11 Labs: Microbiology - Last 24 Hours (Table) 09/23/24 13:32 Blood Culture - Preliminary Blood Assessment and Plan Assessment: Small bowel obstruction review of history of colon cancer. Surgery found large retroperitoneal mass extending into the small bowel which is a frozen. Elevated inflammatory markers, rule out inflammatory bowel disease History of left colon cancer status post colectomy and chemotherapy last chemotherapy 08/18/2024 Possible sepsis with leukocytosis and tachycardia. Plan: Prognosis extremely poor Patient family decided comfort care measures which is very appropriate Give morphine and Ativan to keep the patient comfortable Labs and medication were reviewed.. Continue same treatment. Continue with symptomatic treatment. Monitor labs and vitals. DVT and GI prophylaxis. Further recommendations as per clinical course of the patient DVT prophylaxis: Subcutaneous heparin GI Prophylaxis: Pepcid Prognosis is guarded
--- NOTE | 2024-09-26 11:38 | P.PN ---
Subjective Progress Note Date: 09/26/24 SURGICAL PROGRESS NOTE CHIEF COMPLAINT: SBO HISTORY OF PRESENT ILLNESS: Patient is postop day #1 status post exploratory laparotomy, small bowel resection and retroperitoneal biopsy. Patient had enlarging left retroperitoneal tumor growing in the small bowel causing frozen abdomen and complete small bowel obstruction. Yesterday patient was started on comfort care measures. Currently on a morphine drip. Temp 100.9. Tachycardic. PHYSICAL EXAM: VITAL SIGNS: Reviewed. GENERAL: Appears comfortable ASSESSMENT: 1. 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 History of left colon cancer growing into the retroperitoneum status post left colectomy in May 2024 PLAN: -Continue with comfort care measures. Morphine dose increased. Patient has Ativan as needed Physician Flight Hostess note has been reviewed by physician. Signing provider agrees with the documented findings, assessment, and plan of care. Objective - Vital Signs Vital signs: Vital Signs Temp 99.5 F 09/26/24 06:28 Pulse 146 H 09/26/24 07:46 Resp 22 09/26/24 07:46 BP 114/75 09/25/24 13:29 Pulse Ox 97 09/26/24 06:04 FiO2 15 09/25/24 13:29 Intake & Output 09/25/24 09/26/24 09/26/24 18:59 06:59 18:59 Intake Total 1500 0 36.567 Output Total 251 250 Balance 1249 -250 36.567 Weight 73.028 kg Intake: IV 1400 Intake, IV Titration 100 36.567 Amount Morphine Sulfate 100 mg 36.567 In Sodium Chloride 0.9% 90 ml @ Per Protocol IV . Q0M [facility] Rx#:[id number] Piperacillin-Tazobactam 3 100 .375 gm In Sodium Chloride 0.9% 100 ml @ 25 mls/hr IVPB Q8H [facility] Rx#: [id number] Oral 0 Output: Gastric Drainage 200 Urine 201 50 Estimated Blood Loss 50 Other: Voiding Method Bedpan Indwelling Catheter Indwelling Catheter - Labs CBC & Chem 7: 09/25/24 06:11 09/25/24 06:11 Labs: Microbiology - Last 24 Hours (Table) 09/23/24 13:32 Blood Culture - Preliminary Blood
[2024-09-27 00:33] VITALS: PULSE 134
[2024-09-27 02:08] VITALS: TEMP 99.4
--- NOTE | 2024-09-27 16:20 | P.PN ---
Subjective Progress Note Date: 09/27/24 CHIEF COMPLAINT: Bowel obstruction HISTORY OF PRESENT ILLNESS: The patient is a 69-year-old female with metastatic colon cancer and bowel obstruction frozen abdomen. Her family is at bedside. Patient has been made comfort care. Hospice is not on chart. Per discussion with nursing, patient still on scheduled medications. Patient has nasogastric tube. Family reports that patient has not been eating and months. NG tube still present. ROS: No fevers or chills. No documented bowel movement in 24 hours. PHYSICAL EXAM: VITAL SIGNS: Reviewed CONSTITUTIONAL: Well developed and in no acute distress. EYES: Conjuctivae without sclera icterus. Extraocular movements grossly intact. HEAD, EARS, NOSE, THROAT: Moist buccal mucosa. Head is atraumatic, normocephalic. Hears conversational speech. Dark green bilious output in NG tube RESPIRATORY: Non-labored respirations and equal bilateral excursions. CARDIOVASCULAR: Palpable 2+ radial pulses. ABDOMEN: Incision intact. MUSCULOSKELETAL: No gross deformity of the lower extremities noted. No clubbing. No cyanosis. SKIN: Good skin turgor. Well perfused. NEUROLOGIC: Cranial nerves II through XII grossly intact. No focal or lateralizing signs. PSYCH: Appropriate affect. Alert and oriented to person, place and time. CLINICAL LABS: Reviewed. No new labs since 09/25/2024 with WBC elevated over 11,000 ASSESSMENT: 1. Metastatic colon cancer with frozen abdomen 2. Mechanical bowel obstruction PLAN: 1. Per discussion with nursing, patient is comfort care. Family requesting hospice. 2. Hospice consultation placed. Objective - Vital Signs Vital signs: Vital Signs Temp 99.4 F 09/27/24 02:04 Pulse 134 H 09/27/24 00:00 Resp 12 09/27/24 02:04 BP 114/75 09/25/24 13:29 Pulse Ox 99 09/27/24 02:04 FiO2 15 09/25/24 13:29 Intake & Output 09/26/24 09/27/24 09/27/24 18:59 06:59 18:59 Intake Total 75.434 540 Output Total 150 170 Balance -74.566 540 -170 Weight 73.028 kg Intake: Intake, IV Titration 75.434 Amount Morphine Sulfate 100 mg 75.434 In Sodium Chloride 0.9% 90 ml @ Per Protocol IV . Q0M [facility] Rx#:[id number] Oral 540 Output: Gastric Drainage 100 Urine 150 70 Uretheral (Mora) 50 Other: Voiding Method Indwelling Catheter Indwelling Catheter Indwelling Catheter - Labs CBC & Chem 7: 09/25/24 06:11 09/25/24 06:11 Labs: Microbiology - Last 24 Hours (Table) 09/23/24 13:32 Blood Culture - Preliminary Blood
[2024-09-27 16:43] VITALS: RESP 10
--- NOTE | 2024-09-28 01:48 | P.PN ---
Subjective Progress Note Date: 09/27/24 This is a pleasant 69 years old female with past medical history of multiple medical problems as below. She has history of colon cancer status post colectomy on chemotherapy and last dose of chemotherapy was about 3 weeks ago. Per documentation it was 08/18/2024. This has been followed by 2 weeks of diarrhea which was stopped over the last 2 days but again the patient did not have any bowel movement and she started having abdominal cramps in the left lower quadrant going to the middle of the abdomen about 10/10 however when I saw the patient she received pain medication and her pain was 0 at that time Patient vomited 3 times this morning mainly bile, no blood. Denies chest pain or dyspnea. No urinary complaint. No headache dizziness weakness numbness. No smoking alcohol or illicit drugs. At home she does not take medication except for Tylenol and little painkiller. She is hemodynamically stable, tachycardic with 101-107 Labs showing mild leukocytosis of 14.4 with hemoglobin 10.4, rest of BMP, LFT, lipase amylase and urine analysis are not concerning CT of the abdomen and pelvis showing small bowel obstruction with mid ileus with some enhancement of the bowel suspicious for inflammatory changes Chest x-ray is negative for acute process EKG showing sinus tachycardia at [address]-T changes Patient currently started on Zosyn and normal saline 100 mL/h 09/24 Patient still has left lower quadrant abdominal pain and tenderness NG tube in place and she has dark bile-like secretions about 300 cc since yesterday No bowel movement not passing gas Still leukocytosis about 14.3. Hemoglobin 9.5. Her inflammatory markers is elevated with CRP 5.8 and ESR 89 Because of this we are going to consult GI service as CAT scan also was suspicious for inflammatory bowel disease 09/25 Patient had surgery for her small bowel obstruction today. 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 The prognosis of these findings was extremely poor that patient was made comfort care immediately after surgery. [place] multiple family members at bedside Pain medication with morphine and Ativan 2 mg every 4 hours was provided for comfort measures. Prognosis is extremely poor 09/26 Family yesterday decided for comfort care measures Patient currently looks comfortable on Ativan 2 mg and morphine. As per family at bedside patient does not need further medication for now 09/27/2024 Patient is seen in follow-up maintained on comfort measures and remains admitted under general surgery services. Hospice consulted and will continue current regimen. Continue to follow with general surgery during hospitalization Physical exam: GENERAL: The patient is obtunded, NG tube in place. Unresponsive HEENT: Pupils are round and equally reacting to light. EOMI. No scleral icterus. No conjunctival pallor. Normocephalic, atraumatic. No pharyngeal erythema. No th yromegaly. CARDIOVASCULAR: S1 and S2 present. No murmurs, rubs, or gallops. PULMONARY: Chest is clear to auscultation, no wheezing , no crackles. -ABDOMEN: Soft, , nondistended, normoactive bowel sounds. No palpable organomegaly. MUSCULOSKELETAL: No joint swelling or deformity. EXTREMITIES: No cyanosis, clubbing, or pedal edema. NEUROLOGICAL: Unable to assess as patient is obtunded SKIN: No rashes. no petechiae. Assessment: Small bowel obstruction with history of colon cancer. Surgery found large retroperitoneal mass extending into the small bowel with frozen abdomen. Elevated inflammatory markers, likely inflammatory bowel disease History of left colon cancer status post colectomy and chemotherapy last chemotherapy 08/18/2024 sepsis with leukocytosis and tachycardia secondary to small bowel obstruction. Plan: Prognosis extremely poor Patient family decided comfort care measures which is very appropriate given patient has frozen abdomen and no further intervention recommended. Family requesting hospice and hospice consult was placed Continue comfort medications and supportive care We will continue to follow with general surgery during hospitalization The impression and plan of care has been dictated by Shannon Villalobos, Nurse Practitioner as directed. Dr. Bhavin MD I have performed a history and examination and MDM of this patient, discussed the same with the dictator, and agree with the dictator's assessment and plan as written ,documented as a scribe. Based on total visit time, I have performed more than 50% of the visit. Objective - Vital Signs Vital signs: Vital Signs Temp 99.4 F 09/27/24 02:04 Pulse 134 H 09/27/24 00:00 Resp 12 09/27/24 02:04 BP 114/75 09/25/24 13:29 Pulse Ox 99 09/27/24 02:04 FiO2 15 09/25/24 13:29 Intake & Output 09/26/24 09/27/24 09/27/24 18:59 06:59 18:59 Intake Total 75.434 540 Output Total 150 50 Balance -74.566 540 -50 Weight 73.028 kg Intake: Intake, IV Titration 75.434 Amount Morphine Sulfate 100 mg 75.434 In Sodium Chloride 0.9% 90 ml @ Per Protocol IV . Q0M [facility] Rx#:[id number] Oral 540 Output: Urine 150 50 Uretheral (Mora) 50 Other: Voiding Method Indwelling Catheter Indwelling Catheter Indwelling Catheter - Labs CBC & Chem 7: 09/25/24 06:11 09/25/24 06:11 Labs: Microbiology - Last 24 Hours (Table) 09/23/24 13:32 Blood Culture - Preliminary Blood
== END 2024-09-27 20:13 | disposition hospice, inpatient (51) | DRG 330 ==
LOC: EC 10:04 → 4SSUR 13:59 → 5NMEDONC 14:34
PROVIDERS: ADMIT Surgery; ATTEND Surgery
PROC: 0DB80ZZ Excision of Small Intestine, Open Approach (ICD-10-PCS; 2024-09-25)
PROC: 0DN80ZZ Release Small Intestine, Open Approach (ICD-10-PCS; 2024-09-25)
PROC: 0D9670Z Drainage of Stomach with Drainage Device, Via Natural or Artificial Opening (ICD-10-PCS; 2024-09-25)
PROC: 0WBH0ZX Excision of Retroperitoneum, Open Approach, Diagnostic (ICD-10-PCS; principal; 2024-09-25 12:20)
DX: K56.691 Other complete intestinal obstruction (principal); C18.9 Malignant neoplasm of colon, unspecified; Z51.5 Encounter for palliative care; C77.2 Secondary and unspecified malignant neoplasm of intra-abdominal lymph nodes; K66.0 Peritoneal adhesions (postprocedural) (postinfection); D49.0 Neoplasm of unspecified behavior of digestive system; I10 Essential (primary) hypertension; M19.90 Unspecified osteoarthritis, unspecified site; R00.0 Tachycardia, unspecified; Z90.49 Acquired absence of other specified parts of digestive tract; Z87.891 Personal history of nicotine dependence; Z90.81 Acquired absence of spleen; Z85.038 Personal history of other malignant neoplasm of large intestine; Z87.19 Personal history of other diseases of the digestive system; Z98.51 Tubal ligation status
CPT/HCPCS: 36415; 71045; 74176; 74177; 80048; 80053; 81003; 82150; 83605; 83690; 85025; 85652; 86140; 87040; 88307; 88341; 88342; 93005; 96361; 96365; 96367; 96375; 99285

== ENCOUNTER 2024-09-27 19:32 | Inpatient (IN) | payer MEDICAID ==
[2024-09-27] MEDS ORDERED: ONDANSETRON 4 MG/2 ML VIAL IVP PRN (20:01)
[2024-09-27] MEDS ORDERED: ATROPINE OPHTH SOLN 1% 5ML BTL SUBLINGUAL PRN (20:01)
[2024-09-27] MEDS ORDERED: ACETAMINOPHEN SUPPOSITORY 650 MG SUPP RECTAL PRN (20:01)
[2024-09-27] MEDS ORDERED: GLYCOPYRROLATE 0.2 MG/ML 2 ML VIAL IVP PRN (20:01)
[2024-09-27 20:34] VITALS: TEMP 98.3
[2024-09-27] MEDS: MORPHINE SULFATE 100 MG in SODIUM CHLORIDE 0.9% 90 ML IV SCH (20:49)
[2024-09-27] MEDS: SCOPOLAMINE 1 MG/72 HR PATCH TRANSDERM SCH (22:20)
[2024-09-28 08:58] VITALS: PULSE 104
[2024-09-28] MEDS: LORazepam 2 MG/ML INJ IV PRN (15:11)
[2024-09-29 04:27] VITALS: RESP 10
== END 2024-09-29 06:06 | disposition expired | DRG 951 ==
LOC: 5NMEDONC 20:25
PROVIDERS: ADMIT Surgery; ATTEND Surgery
DX: Z51.5 Encounter for palliative care (principal); K56.609 Unspecified intestinal obstruction, unspecified as to partial versus complete obstruction; C78.6 Secondary malignant neoplasm of retroperitoneum and peritoneum; Z66 Do not resuscitate; C18.6 Malignant neoplasm of descending colon; I10 Essential (primary) hypertension